=== PATIENT | male | born 1980 | race African-American/Black ===

== ENCOUNTER 2016-12-01 15:42 | Outpatient (CLI) | payer OTHER | END 2016-12-01 15:43 | disposition EMS.NT | LOC: EMS 15:42 | PROVIDERS: ATTEND Surgery | DX: R41.0 Disorientation, unspecified (principal) ==

== ENCOUNTER 2017-04-23 12:36 | Emergency (ER) | payer OTHER ==
--- NOTE | 2017-04-23 13:29 | ED Physician Documentation ---
PD HPI CHEST PAIN - Stated complaint Stated Complaint: CHEST PX - Chief complaint Chief Complaint: Resp - History obtained from History obtained from: Patient - History of Present Illness Timing - onset: How many days ago (few) Timing - onset during: Light activity Timing - duration: Days Timing - details: Gradual onset, Intermittant Quality: Sharp, Pain Location: Right chest Radiation: No: Jaw, Neck, Back, Abdominal, Left upper extremity, Right upper extremity, Other Improved by: Rest Worsened by: Inspiration, Movement, Palpation. No: Eating Associated symptoms: Cough. No: Shortness of air, Diaphoresis, Nausea, Feeling faint / dizzy Similar symptoms before: Has not had sx before Recently seen: Not recently seen Review of Systems Constitutional: denies: Fever, Chills Nose: reports: Sinus pressure / pain. denies: Rhinorrhea / runny nose, Congestion Throat: denies: Sore throat Cardiac: reports: Chest pain / pressure. denies: Palpitations, Pedal edema, Calf pain Respiratory: reports: Cough. denies: Dyspnea, Wheezing (but feels tight breathing with cough) GI: denies: Abdominal Pain, Nausea, Vomiting : denies: Dysuria, Frequency Skin: denies: Rash, Lesions Musculoskeletal: denies: Extremity swelling Neurologic: denies: Focal weakness, Numbness, Near syncope PD PAST MEDICAL HISTORY - Past Medical History Past Medical History: Yes Cardiovascular: Hypertension, High cholesterol Endocrine/Autoimmune: Type 2 diabetes GI: GERD Psych: Depression - Past Surgical History Past Surgical History: No General: Appendectomy - Present Medications Home Medications: Ambulatory Orders Medication Instructions Recorded Confirmed Albuterol Sulf [Ventolin Hfa 1 - 2 puffs INH Q4HR PRN #1 inhaler 04/23/17 Inhaler] Aspirin 81 mg PO DAILY 04/23/17 04/23/17 Atorvastatin [Lipitor] 10 mg ORAL DAILY 04/23/17 04/23/17 Cholecalciferol (Vitamin D3) 2,000 unit PO 04/23/17 [Vitamin D3] Citalopram [CeleXA] 10 mg PO ONCE 04/23/17 04/23/17 HYDROcod/ACETAM 5/325 [[place] 5/325] 1 tab PO Q6H PRN #15 tablet 04/23/17 Ibuprofen [Motrin] 600 mg PO TID #30 tab 04/23/17 Insulin Aspart [NovoLOG] unit SQ DAILY 04/23/17 Insulin Glargine [Lantus Solostar] 30 unit SQ BID 04/23/17 04/23/17 Propranolol [Inderal] 10 mg PO BID 04/23/17 04/23/17 - Allergies Allergies/Adverse Reactions: Allergies Allergy/AdvReac Type Severity Reaction Status Date / Time No Known Drug Allergies Allergy Verified 04/23/17 12:41 - Social History Does the pt smoke?: No Smoking Status: Never smoker Does the pt drink ETOH?: No Does the pt have substance abuse?: No - Family History Family history: reports: CAD. denies: Venous thromboembolism, Aortic dissection - Immunizations Immunizations are current?: Yes PD ED PE NORMAL - Vitals Vital signs reviewed: Yes - General General: Alert and oriented X 3, Well developed/nourished, Other (seems uncomfortable with deep breathing) - HEENT HEENT: Atraumatic, Moist mucous membranes, Pharynx benign - Neck Neck: Supple, no meningeal sign, No adenopathy - Cardiac Cardiac: RRR, No murmur, No rub, Other (bedside U/S without pericardial effusion. ) - Respiratory Respiratory: Clear bilaterally, Other (chestwall tendrness right anterior ribs/ cartilage about ribs 7-8. No rash nor sores. ) - Abdomen Abdomen: Soft, Non tender - Derm Derm: Normal color, Warm and dry, No rash - Extremities Extremities: No deformity, No tenderness to palpate, No edema, No calf tenderness / cord - Neuro Neuro: Alert and oriented X 3, No motor deficit, Normal speech Results - Vitals Vitals: Vital Signs - 24 hr 04/23/17 04/23/17 12:38 14:30 Temperature 37.3 C Heart Rate 104 H 104 H Respiratory 20 12 Rate Blood Pressure 150/91 H 154/105 H O2 Saturation 97 95 Oxygen O2 Source Room air - EKG (time done) 12:44 Rate: Rate (enter#) (101) Rhythm: Sinus tachycardia [place]: Normal Intervals: Normal [place] QRS: Normal Ischemia: Normal ST segments, ST elevation c/w repol. No: ST elevation c/w ischemia, ST depression, Hyperacute T waves Compare to prior EKG: Old EKG unavailable - Rads (name of study) chest Radiology: Prelim report reviewed, EMP read contemporaneously (normal study) PD MEDICAL DECISION MAKING - ED course Complexity details: considered differential (cough and chest pain, presume illness. CXR clear. ECG normal. Low prob/no risk factors for PE, no PTX, no pneumonia. [place] schest wall tenderness to palpation. ), d/w patient Departure - Departure Disposition: 01 Home, Self Care Clinical Impression: Cough, Acute chest wall pain Condition: Stable Record reviewed to determine appropriate education?: Yes Instructions: ED Chest Pain Costochondritis Follow-Up: Guillermo Yusuf MD [Primary Care Provider] - Prescriptions: Albuterol Sulf [Ventolin Hfa Inhaler] 1 - 2 puffs INH Q4HR PRN #1 inhaler PRN Reason: Shortness Of Air/Wheezing HYDROcod/ACETAM 5/325 [[place] 5/325] 1 tab PO Q6H PRN #15 tablet PRN Reason: Pain Ibuprofen [Motrin] 600 mg PO TID #30 tab Comments: This sounds likely to be a viral illness with a cough and some inflammation in the chest wall. Recheck if other symptoms develop. We will treated with an inhaler albuterol 2 puffs 4 times a day and other times as needed for cough and shortness of breath. This should improve airflow and reduce coughing. Use ibuprofen 2-3 times a day as an anti-inflammatory and for pain. Add Tylenol or hydrocodone if needed for worse pain. Recheck if not improving over the next few days. Discharge Date/Time: 04/23/17 14:48
[2017-04-23] MEDS ORDERED: HYDROcod/ACETAM 5/325 MG TABLET PO STA (13:43)
[2017-04-23] MEDS ORDERED: IBUPROFEN 600 MG TABLET PO STA (13:43)
--- NOTE | 2017-04-23 14:18 | XRAY Report ---
EXAM: CHEST RADIOGRAPHY EXAM DATE: 04/23/2017 02:06 PM. CLINICAL HISTORY: Chest pain right sided, worse with breathing. COMPARISON: 01/22/2009. TECHNIQUE: 2 views. FINDINGS: Lungs/Pleura: Lung volumes are mildly decreased. Minimal basilar opacities. No consolidation. No vasc ular congestion. No pneumothorax. No pleural effusions. Mediastinum: Heart and mediastinal contours are unremarkable. Other: No acute osseous abnormalities. IMPRESSION: 1. Mild hypoventilatory changes with minimal basilar opacities favoring atelectasis rather than conso lidation. [facility] Referring Provider Line: [phone] SITE ID: [id number]
[2017-04-23] MEDS ORDERED: DEXAMETHASONE 10 MG/ML VIAL PO STA (14:22)
[2017-04-23 14:30] VITALS: BP 154/105
== END 2017-04-23 14:48 | disposition home or self-care (01) ==
LOC: ED 12:36
DX: R07.89 Other chest pain (principal); R05 Cough; E78.00 Pure hypercholesterolemia, unspecified; E11.9 Type 2 diabetes mellitus without complications; Z79.4 Long term (current) use of insulin; K21.9 Gastro-esophageal reflux disease without esophagitis; Z79.82 Long term (current) use of aspirin
CPT/HCPCS: 71046; 93005; 99283; A9270

== ENCOUNTER 2017-05-31 05:59 | Outpatient (CLI) | payer OTHER | END 2017-05-31 06:00 | disposition EMS.NT | LOC: EMS 05:59 | PROVIDERS: ATTEND Surgery | DX: R46.4 Slowness and poor responsiveness (principal); R73.09 Other abnormal glucose ==

== ENCOUNTER 2017-07-23 20:49 | Outpatient (CLI) | payer OTHER | END 2017-07-23 20:50 | disposition EMS.NT | LOC: EMS 20:49 | PROVIDERS: ATTEND Surgery | DX: R73.09 Other abnormal glucose (principal) ==

== ENCOUNTER 2017-07-25 11:22 | Emergency (ER) | payer OTHER ==
[2017-07-25 11:59] LABS: BASOPHILS # (AUTO) 0.1 10^3/uL (0.0-0.1); BASOPHILS % (AUTO) 0.9 %; EOSINOPHILS # (AUTO) 0.2 10^3/uL (0.0-0.7); EOSINOPHILS % (AUTO) 2.6 %; HGB - HEMOGLOBIN 14.3 g/dL (14.0-18.0); LYMPHOCYTES # (AUTO) 1.2 10^3/uL (1.5-3.5); LYMPHOCYTES % (AUTO) 19.2 %; MEAN CORPUSCULAR HEMOGLOBIN 30.2 pg (27.0-31.0); MEAN CORPUSCULAR HGB CONC 33.9 g/dL (32.0-36.0); MEAN CORPUSCULAR VOLUME 89.2 fL (80.0-94.0); MEAN PLATELET VOLUME 7.6 fL (7.4-11.4); MONOCYTES # (AUTO) 0.5 10^3/uL (0.0-1.0); MONOCYTES % (AUTO) 8.5 %; NEUTROPHILS # (AUTO) 4.2 10^3/uL (1.5-6.6); NEUTROPHILS % (AUTO) 68.8 %; PLT - PLATELET COUNT 304 10^3/uL (130-450); RED BLOOD COUNT 4.72 10^6/uL (4.70-6.10); RED CELL DISTRIBUTION WIDTH 14.1 % (12.0-15.0); WHITE BLOOD COUNT 6.1 x10^3/uL (4.8-10.8)
[2017-07-25 12:09] LABS: ALBUMIN 3.4 g/dL (3.2-5.5); ALBUMIN/GLOBULIN RATIO 0.9 (1.0-2.2); BILIRUBIN,TOTAL 0.6 mg/dL (0.2-1.0); CREATININE 1.3 mg/dL (0.6-1.2); TOTAL PROTEIN 7.3 g/dL (6.7-8.2)
[2017-07-25] MEDS ORDERED: SODIUM CHLORIDE 0.9% 1,000 ML IV ONE (12:09)
[2017-07-25] MEDS ORDERED: diphenhydrAMINE INJ 50 MG/ML VIAL IVP STA (12:09)
[2017-07-25] MEDS ORDERED: KETOROLAC 60 MG/2 ML VIAL IVP STA (12:09)
[2017-07-25] MEDS ORDERED: PROCHLORPERAZINE 10 MG/2 ML VIAL IVP STA (12:09)
[2017-07-25] MEDS ORDERED: DEXAMETHASONE 10 MG/ML VIAL IVP STA (12:09)
--- NOTE | 2017-07-25 13:11 | ED Physician Documentation ---
PD HPI HEADACHE - Stated complaint Stated Complaint: MIGRAINE,NAUSEA,HIGH BP - Chief complaint Chief Complaint: Neuro - History obtained from History obtained from: Patient, Family - History of Present Illness Timing - onset: How many days ago (4) Timing - onset during: Rest Timing - duration: Days (4) Timing - details: Gradual onset, Still present Location: Front Quality: Throbbing Associated symptoms: Nausea. No: Fever, Stiff neck, Vomiting, Weakness, Numbness, Syncope, Seizure, Eye pain, Vision changes Improved by: Rest, Dark room, Quiet Worsened by: Light, Noise, Moving Contributing factors: No: Anticoagulated Similar symptoms before: Diagnosis (migraine) Recently seen: Not recently seen - Additional information Additional information: 37-year-old type I diabetic with a history of migraine headaches has developed a headache about 4 days ago and he has not been able to get control of the pain associated with this he has not been able to sleep. Review of Systems Constitutional: denies: Fever Eyes: reports: Photophobia. denies: Decreased vision Ears: denies: Ear pain Nose: denies: Rhinorrhea / runny nose, Congestion Throat: denies: Sore throat Cardiac: denies: Chest pain / pressure, Palpitations Respiratory: denies: Dyspnea, Cough GI: reports: Nausea, Vomiting. denies: Abdominal Pain, Constipation, Diarrhea : denies: Dysuria, Frequency Skin: denies: Rash Musculoskeletal: denies: Neck pain, Back pain, Extremity pain Neurologic: reports: Headache. denies: Generalized weakness, Focal weakness, Numbness, Difficulty speaking, Near syncope, Syncope, Confused, Head injury, LOC PD PAST MEDICAL HISTORY - Past Medical History Past Medical History: Yes Cardiovascular: High cholesterol, Hypertension Respiratory: None Neuro: Headache/migraine Endocrine/Autoimmune: Type 1 diabetes, Type 2 diabetes GI: GERD HEENT: None Psych: Depression Derm: None - Past Surgical History Past Surgical History: No General: Appendectomy - Present Medications Home Medications: Ambulatory Orders Medication Instructions Recorded Confirmed Insulin Aspart [Novolog] 10 units SUBQ TIDWM 05/08/14 05/08/14 Insulin Glargine,Hum.rec.anlog 30 units SUBQ DAILY 05/08/14 05/08/14 [Lantus] Lisinopril/Hydrochlorothiazide 1 tab ORAL DAILY 05/08/14 05/08/14 [Lisinopril-Hctz 10-12.5 mg Tab] Metoprolol Tartrate 50 mg ORAL DAILY 05/08/14 05/08/14 Albuterol Sulf [Ventolin Hfa 1 - 2 puffs INH Q4HR PRN #1 inhaler 04/23/17 Inhaler] Aspirin 81 mg PO DAILY 04/23/17 04/23/17 Atorvastatin [Lipitor] 10 mg ORAL DAILY 04/23/17 04/23/17 Cholecalciferol (Vitamin D3) 2,000 unit PO 04/23/17 [Vitamin D3] Citalopram [CeleXA] 10 mg PO ONCE 04/23/17 04/23/17 Ibuprofen [Motrin] 600 mg PO TID #30 tab 04/23/17 Insulin Aspart [NovoLOG] unit SQ DAILY 04/23/17 Insulin Glargine [Lantus Solostar] 30 unit SQ BID 04/23/17 04/23/17 Propranolol [Inderal] 10 mg PO BID 04/23/17 04/23/17 - Allergies Allergies/Adverse Reactions: Allergies Allergy/AdvReac Type Severity Reaction Status Date / Time No Known Drug Allergies Allergy Verified 05/08/14 14:28 - Social History Does the pt smoke?: No Smoking Status: Never smoker Does the pt drink ETOH?: No Does the pt have substance abuse?: No - Immunizations Immunizations are current?: Yes PD ED PE NORMAL - Vitals Vital signs reviewed: Yes (tachy and hypertensive) - General General: Alert and oriented X 3, Well developed/nourished, Other (appears to be in pain with [place] tone and flat affect ) - HEENT HEENT: Atraumatic, PERRL, EOMI, Ears normal, Other (dry mucous membranes) - Neck Neck: Supple, no meningeal sign, No bony TTP - Cardiac Cardiac: RRR, No murmur - Respiratory Respiratory: No respiratory distress, Clear bilaterally - Abdomen Abdomen: Soft, Non tender - Back Back: No CVA TTP, No spinal TTP - Derm Derm: Normal color, Warm and dry, No rash - Extremities Extremities: No deformity, No edema - Neuro Neuro: Alert and oriented X 3, double bottom driver 2-12 intact, No motor deficit, No sensory deficit, Normal speech Eye Opening: Spontaneous Motor: Obeys Commands Verbal: Oriented GCS Score: 15 - Psych Psych: Normal mood Results - Vitals Vitals: Vital Signs - 24 hr 07/25/17 11:27 Temperature 36.2 C L Heart Rate 104 H Respiratory 18 Rate Blood Pressure 180/120 H O2 Saturation 95 Oxygen O2 Source Room air - Labs Labs: Laboratory Tests 07/25/17 07/25/17 07/25/17 11:45 11:45 11:45 WBC 6.1 RBC 4.72 Hgb 14.3 Hct 42.1 MCV 89.2 MCH 30.2 MCHC 33.9 RDW 14.1 Plt Count 304 MPV 7.6 Neut # 4.2 Lymph # 1.2 L [place] # 0.5 Eos # 0.2 Baso # 0.1 Absolute Nucleated RBC 0.01 Nucleated RBC % 0.1 Sodium 134 L Potassium 4.2 Chloride 99 L Carbon Dioxide 28 Anion Gap 7.0 BUN 21 H Creatinine 1.3 H Estimated GFR (MDRD) 75 L Glucose 176 H Calcium 9.0 Total Bilirubin 0.6 AST 37 ALT 43 Alkaline Phosphatase 63 Troponin I < 0.04 Total Protein 7.3 Albumin 3.4 Globulin 3.9 Albumin/Globulin Ratio 0.9 L Lipase 15 L PD MEDICAL DECISION MAKING - ED course Complexity details: reviewed results, re-evaluated patient, considered differential, d/w patient, d/w family ED course: 37-year-old diabetic male with migraine headache is administered a concoction of a liter of saline 10 mg of Compazine, 25 mg of Benadryl, 30 mg of Toradol and 10 mg dexamethasone. He has resolution of his headache. Departure - Departure Disposition: 01 Home, Self Care Clinical Impression: Migraine headache Qualifiers: Migraine type: without aura Status migrainosus presence: without status migrainosus Intractability: not intractable Qualified Code(s): G43.009 - Migraine without aura, not intractable, without status migrainosus Condition: Stable Instructions: ED Headache Migraine Follow-Up: Guillermo Yusuf MD [Primary Care Provider] -
[2017-07-25 13:44] VITALS: BP 183/107
== END 2017-07-25 13:44 | disposition home or self-care (01) ==
LOC: ED 11:22
DX: G43.009 Migraine without aura, not intractable, without status migrainosus (principal); E11.9 Type 2 diabetes mellitus without complications; Z79.4 Long term (current) use of insulin; I10 Essential (primary) hypertension; E78.00 Pure hypercholesterolemia, unspecified; K21.9 Gastro-esophageal reflux disease without esophagitis
CPT/HCPCS: 36415; 80053; 83690; 84484; 85025; 96374; 96375; 99283; 99284; J1200

== ENCOUNTER 2017-10-26 12:07 | Emergency (ER) | payer OTHER ==
--- NOTE | 2017-10-26 12:29 | ED Physician Documentation ---
PD HPI NVD - Stated complaint Stated Complaint: HIGH BS/VISION CHANGES - Chief complaint Chief Complaint: General - History obtained from History obtained from: Patient - History of Present Illness Timing - onset: Today (he says BS a bit higher than usual yesterday and then quite high today, with some feeling of lightheaded. No nausea nor vomiting.) Timing - duration: Hours Timing - details: Abrupt onset Associated symptoms: Other (no change in intake nor insulin dosing. He did take extra insulin [employer] when reading was high, so that will be having effect in the next hour or so.). No: Fever, Abdominal pain, Chest pain, Loss of appetite, Weight loss Contributing factors: No: Sick contact, Bad food, Travel, Recent antibiotics Similar symptoms before: Has not had sx before (has had low blood sugar issues more in the past. Not typically high (he says baseline is 100s into low 200s, aiming slightly high due to episodes of hypoglycemia in the past).) Recently seen: Surgery (retinal laser surgery 2 days ago in office due to retinal bleed.) Review of Systems Constitutional: denies: Fever Eyes: reports: Photophobia Nose: denies: Rhinorrhea / runny nose, Congestion Throat: denies: Sore throat Cardiac: denies: Chest pain / pressure, Palpitations Respiratory: denies: Dyspnea, Cough GI: reports: Nausea (mild). denies: Abdominal Pain, Vomiting, Diarrhea : denies: Dysuria, Frequency Skin: denies: Lesions, Abrasion (s), Laceration (s) Neurologic: reports: Generalized weakness (mild lightheaded). denies: Focal weakness, Numbness, Confused, Altered mental status PD PAST MEDICAL HISTORY - Past Medical History Cardiovascular: High cholesterol, Hypertension Respiratory: None Endocrine/Autoimmune: Type 1 diabetes, Type 2 diabetes GI: GERD HEENT: None Psych: Depression Derm: None - Past Surgical History Past Surgical History: No General: Appendectomy - Present Medications Home Medications: Ambulatory Orders Medication Instructions Recorded Confirmed Insulin Aspart [Novolog] 10 units SUBQ TIDWM 05/08/14 05/08/14 Insulin Glargine,Hum.rec.anlog 30 units SUBQ DAILY 05/08/14 05/08/14 [Lantus] Lisinopril/Hydrochlorothiazide 1 tab ORAL DAILY 02/04/15 02/04/15 [Lisinopril-Hctz 10-12.5 mg Tab] Metoprolol Tartrate 50 mg ORAL DAILY 05/08/14 05/08/14 Albuterol Sulf [Ventolin Hfa 1 - 2 puffs INH Q4HR PRN #1 inhaler 04/23/17 Inhaler] Aspirin 81 mg PO DAILY 04/23/17 04/23/17 Atorvastatin [Lipitor] 10 mg ORAL DAILY 04/23/17 04/23/17 Cholecalciferol (Vitamin D3) 2,000 unit PO 04/23/17 [Vitamin D3] Citalopram [CeleXA] 10 mg PO ONCE 04/23/17 04/23/17 Ibuprofen [Motrin] 600 mg PO TID #30 tab 04/23/17 Insulin Aspart [NovoLOG] unit SQ DAILY 04/23/17 Insulin Glargine [Lantus Solostar] 30 unit SQ BID 04/23/17 04/23/17 Propranolol [Inderal] 10 mg PO BID 04/23/17 04/23/17 - Allergies Allergies/Adverse Reactions: Allergies Allergy/AdvReac Type Severity Reaction Status Date / Time No Known Drug Allergies Allergy Verified 10/26/17 12:14 - Social History Does the pt smoke?: No Smoking Status: Never smoker Does the pt drink ETOH?: No Does the pt have substance abuse?: No - Immunizations Immunizations are current?: Yes PD ED PE NORMAL - Vitals Vital signs reviewed: Yes - General General: Alert and oriented X 3, No acute distress, Well developed/nourished - HEENT HEENT: PERRL, EOMI (right eye is light sensitive. ), Ears normal, Pharynx benign - Neck Neck: Supple, no meningeal sign, No adenopathy - Cardiac Cardiac: RRR, No murmur - Respiratory Respiratory: Clear bilaterally - Abdomen Abdomen: Soft, Non tender - Back Back: No CVA TTP - Derm Derm: Normal color, Warm and dry - Extremities Extremities: No deformity, No tenderness to palpate, Normal ROM s pain - Neuro Neuro: Alert and oriented X 3, No motor deficit, Normal speech Eye Opening: Spontaneous Motor: Obeys Commands Verbal: Oriented GCS Score: 15 Results - Vitals Vitals: Vital Signs - 24 hr 10/26/17 14:37 Heart Rate 106 H Respiratory 16 Rate Blood Pressure 191/111 H O2 Saturation 98 Oxygen O2 Source Room air - Labs Labs: Laboratory Tests 10/26/17 10/26/17 10/26/17 12:55 12:55 12:55 WBC 4.7 L RBC 4.76 Hgb 14.5 Hct 43.8 MCV 92.0 MCH 30.4 MCHC 33.0 RDW 13.0 Plt Count 275 MPV 7.9 Neut # (Auto) 3.3 Lymph # (Auto) 0.9 L [place] # (Auto) 0.3 Eos # (Auto) 0.1 Baso # (Auto) 0.0 Absolute Nucleated RBC 0.00 Nucleated RBC % 0.0 VBG pH 7.351 VBG pCO2 51.0 VBG pO2 39.4 VBG HCO3 27.6 VBG Total CO2 29.2 H VBG O2 Saturation 74.3 VBG Base Excess 1.0 Sodium 129 L Potassium 5.6 H Chloride 92 L Carbon Dioxide 28 Anion Gap 9.0 BUN 44 H Creatinine 2.2 H Estimated GFR (MDRD) 41 L Glucose 614 H* POC Whole Bld Glucose Calcium 9.0 Magnesium 2.0 Total Bilirubin 0.6 AST 37 ALT 41 Alkaline Phosphatase 79 Total Protein 7.3 Albumin 3.4 Globulin 3.9 Albumin/Globulin Ratio 0.9 L Lipase 21 L Urine Color Urine Clarity Urine pH Ur Specific [place] Urine Protein Urine Glucose (UA) Urine Ketones Urine Occult Blood Urine Nitrite Urine Bilirubin Urine Urobilinogen Ur Leukocyte Esterase Ur Microscopic Review Urine Culture Comments Serum Ketones NEGATIVE 10/26/17 10/26/17 13:00 15:00 WBC RBC Hgb Hct MCV MCH MCHC RDW Plt Count MPV Neut # (Auto) Lymph # (Auto) [place] # (Auto) Eos # (Auto) Baso # (Auto) Absolute Nucleated RBC Nucleated RBC % VBG pH VBG pCO2 VBG pO2 VBG HCO3 VBG Total CO2 VBG O2 Saturation VBG Base Excess Sodium Potassium Chloride Carbon Dioxide Anion Gap BUN Creatinine Estimated GFR (MDRD) Glucose POC Whole Bld Glucose 310 H Calcium Magnesium Total Bilirubin AST ALT Alkaline Phosphatase Total Protein Albumin Globulin Albumin/Globulin Ratio Lipase Urine Color YELLOW Urine Clarity CLEAR Urine pH 6.0 Ur Specific [place] <=1.005 Urine Protein TRACE Urine Glucose (UA) >=1000 H Urine Ketones NEGATIVE Urine Occult Blood TRACE-INTA Urine Nitrite NEGATIVE Urine Bilirubin NEGATIVE Urine Urobilinogen 0.2 (NORMAL) Ur Leukocyte Esterase NEGATIVE Ur Microscopic Review NOT INDICATED Urine Culture Comments NOT INDICATED Serum Ketones PD MEDICAL DECISION MAKING - ED course Complexity details: considered differential (not clear reason for BS to be so high. had eye laser surgery 2 days ago, but I would not think that would alter metabolism. Perhaps though. Improved with IV fluids and dose insulin. No ketosis and he is feeling okay otherwise. ), d/w patient - Sepsis Event Vital Signs: Vital Signs - 24 hr 10/26/17 14:37 Heart Rate 106 H Respiratory 16 Rate Blood Pressure 191/111 H O2 Saturation 98 Oxygen O2 Source Room air Departure - Departure Disposition: Home, Self Care Clinical Impression: Hyperglycemia, Blood glucose abnormal Condition: Stable Record reviewed to determine appropriate education?: Yes Instructions: ED Hyperglycemia Diabetic Follow-Up: Guillermo Yusuf MD [Primary Care Provider] - Comments: There is not a obvious reason for your blood sugar to be high at this point. You have had the eye surgery on Tuesday and perhaps that is affecting your metabolism though one would expect that. At this point drink lots of fluids and continue usual medications. Your blood sugars down to 300 at this point and presumably will be improving. There is no signs of ketones or acidosis on your blood tests. Discharge Date/Time: 10/26/17 15:26
[2017-10-26] MEDS ORDERED: SODIUM CHLORIDE 0.9% 1,000 ML IV ONE ×2 (12:39→13:30)
[2017-10-26 13:00] LABS: BASOPHILS % (AUTO) 0.6 %; EOSINOPHILS # (AUTO) 0.1 10^3/uL (0.0-0.7); EOSINOPHILS % (AUTO) 2.7 %; HGB - HEMOGLOBIN 14.5 g/dL (14.0-18.0); LYMPHOCYTES # (AUTO) 0.9 10^3/uL (1.5-3.5); LYMPHOCYTES % (AUTO) 18.2 %; MEAN CORPUSCULAR HEMOGLOBIN 30.4 pg (27.0-31.0); MEAN PLATELET VOLUME 7.9 fL (7.4-11.4); MONOCYTES # (AUTO) 0.3 10^3/uL (0.0-1.0); MONOCYTES % (AUTO) 7.4 %; NEUTROPHILS # (AUTO) 3.3 10^3/uL (1.5-6.6); NEUTROPHILS % (AUTO) 71.1 %; PLT - PLATELET COUNT 275 10^3/uL (130-450); RED BLOOD COUNT 4.76 10^6/uL (4.70-6.10); WHITE BLOOD COUNT 4.7 x10^3/uL (4.8-10.8)
[2017-10-26 13:08] LABS: KETONES, SERUM (ACETEST) NEGATIVE (NEGATIVE)
[2017-10-26 13:09] LABS: VBG PH 7.351 (7.31-7.41)
[2017-10-26 13:10] LABS: VBG PO2 39.4 mmHg (25-47); VBG TOTAL CO2 29.2 mmol/L (24-29)
[2017-10-26 13:19] LABS: BILIRUBIN,URINE NEGATIVE (NEGATIVE); GLUCOSE, URINE (UA) >=1000 mg/dL (NEGATIVE); KETONES,URINE (UA) NEGATIVE (NEGATIVE); LEUKOCYTE ESTERASE, URINE NEGATIVE (NEGATIVE); NITRITE,URINE NEGATIVE (NEGATIVE); OCCULT BLOOD,URINE TRACE-INTA (NEGATIVE); PROTEIN,URINE TRACE mg/dL (NEGATIVE); UROBILINOGEN,URINE 0.2 (NORMAL) E.U./dL (NORMAL)
[2017-10-26 13:20] LABS: CLARITY,URINE CLEAR (CLEAR)
[2017-10-26 13:23] LABS: ALBUMIN 3.4 g/dL (3.2-5.5); ALBUMIN/GLOBULIN RATIO 0.9 (1.0-2.2); ALKALINE PHOSPHATASE 79 IU/L (42-121); ALT ALANINE AMINOTRANSFERASE 41 IU/L (10-60); AST ASPARTATE AMINOTRANSFERASE 37 IU/L (10-42); BILIRUBIN,TOTAL 0.6 mg/dL (0.2-1.0); BUN - BLOOD UREA NITROGEN 44 mg/dL (6-20); CARBON DIOXIDE - CO2 28 mmol/L (21-32); CHLORIDE 92 mmol/L (101-111); CREATININE 2.2 mg/dL (0.6-1.2); GFR - MDRD 41 (>89); LIPASE 21 U/L (22-51); SODIUM 129 mmol/L (135-145); TOTAL PROTEIN 7.3 g/dL (6.7-8.2)
[2017-10-26 13:28] LABS: GLUCOSE 614 mg/dL (70-100)
[2017-10-26 14:39] VITALS: BP 191/111
== END 2017-10-26 15:26 | disposition home or self-care (01) ==
LOC: ED 12:07
DX: E10.65 Type 1 diabetes mellitus with hyperglycemia (principal); Z98.890 Other specified postprocedural states; I10 Essential (primary) hypertension
CPT/HCPCS: 36415; 80053; 81001; 81003; 82009; 82803; 83690; 83735; 85025; 87086; 96360; 96361; 99283

== ENCOUNTER 2017-12-17 18:40 | Emergency (ER) | payer OTHER ==
[2017-12-17 20:06] LABS: BASOPHILS % (AUTO) 0.6 %; EOSINOPHILS # (AUTO) 0.1 10^3/uL (0.0-0.7); EOSINOPHILS % (AUTO) 1.5 %; HGB - HEMOGLOBIN 13.9 g/dL (14.0-18.0); LYMPHOCYTES % (AUTO) 14.3 %; MEAN CORPUSCULAR HEMOGLOBIN 30.4 pg (27.0-31.0); MEAN CORPUSCULAR VOLUME 89.2 fL (80.0-94.0); MEAN PLATELET VOLUME 7.7 fL (7.4-11.4); MONOCYTES # (AUTO) 0.4 10^3/uL (0.0-1.0); MONOCYTES % (AUTO) 5.3 %; NEUTROPHILS # (AUTO) 5.5 10^3/uL (1.5-6.6); NEUTROPHILS % (AUTO) 78.3 %; PLT - PLATELET COUNT 298 10^3/uL (130-450); RED BLOOD COUNT 4.57 10^6/uL (4.70-6.10); RED CELL DISTRIBUTION WIDTH 12.8 % (12.0-15.0); WHITE BLOOD COUNT 7.1 x10^3/uL (4.8-10.8)
[2017-12-17] MEDS ORDERED: diphenhydrAMINE INJ 50 MG/ML VIAL IVP STA (20:18)
[2017-12-17] MEDS ORDERED: METOCLOPRAMIDE 10 MG/2 ML VIAL IVP STA (20:18)
[2017-12-17] MEDS ORDERED: SODIUM CHLORIDE 0.9% 1,000 ML IV ONE ×2 (20:18→21:47)
[2017-12-17 20:19] LABS: ALBUMIN 3.3 g/dL (3.2-5.5); ALBUMIN/GLOBULIN RATIO 0.8 (1.0-2.2); BILIRUBIN,TOTAL 0.7 mg/dL (0.2-1.0); CALCIUM 8.7 mg/dL (8.5-10.3); CREATININE 1.4 mg/dL (0.6-1.2); TOTAL PROTEIN 7.3 g/dL (6.7-8.2)
[2017-12-17] MEDS ORDERED: MORPHINE 2 MG/ML CARPUJECT IVP STA (20:19)
[2017-12-17 20:50] LABS: VBG PCO2 41.1 mmHg (41-51); VBG PH 7.426 (7.31-7.41)
--- NOTE | 2017-12-17 20:58 | XRAY Report ---
Reason: fever, hx of lung failure Procedure Date: 12/17/2017 Accession Number: [id number] / [id number] Procedure: XR - Chest 1 View X-Ray CPT Code: 33964 FULL RESULT: EXAM: CHEST RADIOGRAPHY EXAM DATE: 12/17/2017 08:31 PM. CLINICAL HISTORY: Fever, hx of lung failure. COMPARISON: CHEST 2 VIEW 04/23/2017 1:58 PM. TECHNIQUE: 1 view. FINDINGS: Lungs/Pleura: No focal opacities evident. No pleural effusion. No pneumothorax. Mediastinum: Within exam limitations, the cardiomediastinal contour is normal. Other: None. IMPRESSION: Normal single view chest. [facility]
[2017-12-17 21:25] LABS: BILIRUBIN,URINE NEGATIVE (NEGATIVE); GLUCOSE, URINE (UA) 500 mg/dL (NEGATIVE); KETONES,URINE (UA) NEGATIVE (NEGATIVE); LEUKOCYTE ESTERASE, URINE NEGATIVE (NEGATIVE); NITRITE,URINE NEGATIVE (NEGATIVE); OCCULT BLOOD,URINE TRACE-INTA (NEGATIVE); PROTEIN,URINE >=300 mg/dL (NEGATIVE); UROBILINOGEN,URINE 0.2 (NORMAL) E.U./dL (NORMAL)
[2017-12-17 21:52] LABS: CLARITY,URINE HAZY (CLEAR)
[2017-12-17 22:00] LABS: BACTERIA,URINE None Seen /HPF (None Seen); SQUAMOUS EPITHELIAL CELL,UR RARE Squamous (<= Few)
--- NOTE | 2017-12-17 22:03 | ED Physician Documentation ---
PD HPI ABD PAIN - Stated complaint Stated Complaint: PELAYO/VOMITING - Chief complaint Chief Complaint: Cardiac - History obtained from History obtained from: Patient, Family - History of Present Illness Timing - onset: Today Timing - details: Gradual onset, Still present Quality: Cramping, Aching, Sharp Location: Epigastric Radiation: Chest Associated symptoms: Nausea, Vomiting, Chest pain. No: Fever, Diarrhea Similar symptoms before: Work up / diagnostics Recently seen: Not recently seen - Additional information Additional information: Patient is a 37 year old male with a history of type one diabetes who is presenting to the emergency department forn abdominal pain, nausea, vomiting chest pain and headache. patient states that her symptoms have been going on for last couple of days. Patient states that his blood glucose has been well controlled. He also reports a history of migraines. Review of Systems Constitutional: denies: Fever, Chills Eyes: reports: Reviewed and negative Cardiac: reports: Chest pain / pressure Respiratory: denies: Dyspnea, Cough GI: reports: Abdominal Pain, Nausea, Vomiting Musculoskeletal: denies: Neck pain, Back pain Neurologic: reports: Headache. denies: Generalized weakness, Focal weakness, Numbness PD PAST MEDICAL HISTORY - Past Medical History Past Medical History: Yes Cardiovascular: High cholesterol, Hypertension Respiratory: None Endocrine/Autoimmune: Type 1 diabetes, Type 2 diabetes GI: GERD HEENT: None Psych: Depression Derm: None - Past Surgical History Past Surgical History: No General: Appendectomy - Present Medications Home Medications: Ambulatory Orders Medication Instructions Recorded Confirmed Insulin Aspart [Novolog] 10 units SUBQ TIDWM 05/08/14 05/08/14 Insulin Glargine,Hum.rec.anlog 30 units SUBQ DAILY 05/08/14 05/08/14 [Lantus] Lisinopril/Hydrochlorothiazide 1 tab ORAL DAILY 05/08/14 05/08/14 [Lisinopril-Hctz 10-12.5 mg Tab] Metoprolol Tartrate 50 mg ORAL DAILY 05/08/14 05/08/14 Albuterol Sulf [Ventolin Hfa 1 - 2 puffs INH Q4HR PRN #1 inhaler 04/23/17 Inhaler] Aspirin 81 mg PO DAILY 04/23/17 04/23/17 Atorvastatin [Lipitor] 10 mg ORAL DAILY 04/23/17 04/23/17 Cholecalciferol (Vitamin D3) 2,000 unit PO 04/23/17 [Vitamin D3] Citalopram [CeleXA] 10 mg PO ONCE 04/23/17 04/23/17 Ibuprofen [Motrin] 600 mg PO TID #30 tab 04/23/17 Insulin Aspart [NovoLOG] unit SQ DAILY 04/23/17 Insulin Glargine [Lantus Solostar] 30 unit SQ BID 04/23/17 04/23/17 Propranolol [Inderal] 10 mg PO BID 04/23/17 04/23/17 Ondansetron Odt [Zofran] 4 mg TL Q6H PRN #14 tablet 12/17/17 - Allergies Allergies/Adverse Reactions: Allergies Allergy/AdvReac Type Severity Reaction Status Date / Time No Known Drug Allergies Allergy Verified 12/17/17 20:02 - Social History Does the pt smoke?: No Smoking Status: Never smoker Does the pt drink ETOH?: No Does the pt have substance abuse?: No - Immunizations Immunizations are current?: Yes - POLST Patient has POLST: No PD ED PE NORMAL - Vitals Vital signs reviewed: Yes - General General: Alert and oriented X 3 - HEENT HEENT: Atraumatic - Respiratory Respiratory: No respiratory distress - Derm Derm: Normal color, Warm and dry - Extremities Extremities: No deformity PD ED PE EXPANDED - General General: Alert, In Pain - Cardiac Cardiac: Tachy - Abdomen Abdomen: Tender to palpation. No: Rebound, Guarding Results - Vitals Vitals: Vital Signs - 24 hr 12/17/17 12/17/17 12/17/17 19:01 20:17 20:43 Temperature 36 C L Heart Rate 115 H 118 H 116 H Respiratory 18 18 13 Rate Blood Pressure 182/106 H 198/117 H 179/105 H O2 Saturation 95 97 97 12/17/17 21:54 Temperature Heart Rate 106 H Respiratory 13 Rate Blood Pressure 147/89 H O2 Saturation 96 Oxygen O2 Source Room air - EKG (time done) 1912 Rate: Rate (enter#) (110) Rhythm: Sinus tachycardia QRS: LVH Ischemia: Normal ST segments - Labs Labs: Laboratory Tests 12/17/17 12/17/17 12/17/17 20:01 20:01 20:36 WBC 7.1 RBC 4.57 L Hgb 13.9 L Hct 40.8 L MCV 89.2 MCH 30.4 MCHC 34.0 RDW 12.8 Plt Count 298 MPV 7.7 Neut # (Auto) 5.5 Lymph # (Auto) 1.0 L [place] # (Auto) 0.4 Eos # (Auto) 0.1 Baso # (Auto) 0.0 Absolute Nucleated RBC 0.01 Nucleated RBC % 0.1 VBG pH VBG pCO2 VBG pO2 VBG HCO3 VBG Total CO2 VBG O2 Saturation VBG Base Excess Sodium 133 L Potassium 4.2 Chloride 97 L Carbon Dioxide 28 Anion Gap 8.0 BUN 24 H Creatinine 1.4 H Estimated GFR (MDRD) 69 L Glucose 249 H Lactic Acid Calcium 8.7 Total Bilirubin 0.7 AST 38 ALT 52 Alkaline Phosphatase 74 Troponin I < 0.04 Total Protein 7.3 Albumin 3.3 Globulin 4.0 Albumin/Globulin Ratio 0.8 L Lipase 21 L Urine Color Urine Clarity Urine pH Ur Specific [place] Urine Protein Urine Glucose (UA) Urine Ketones Urine Occult Blood Urine Nitrite Urine Bilirubin Urine Urobilinogen Ur Leukocyte Esterase Urine RBC Urine WBC Ur Squamous Epith Cells Urine Bacteria Ur Microscopic Review Urine Culture Comments Serum Ketones 12/17/17 12/17/17 12/17/17 20:36 20:36 20:36 WBC RBC Hgb Hct MCV MCH MCHC RDW Plt Count MPV Neut # (Auto) Lymph # (Auto) [place] # (Auto) Eos # (Auto) Baso # (Auto) Absolute Nucleated RBC Nucleated RBC % VBG pH 7.426 H VBG pCO2 41.1 VBG pO2 135.0 H VBG HCO3 27.1 VBG Total CO2 28.0 VBG O2 Saturation 99.0 H VBG Base Excess 3.0 H Sodium Potassium Chloride Carbon Dioxide Anion Gap BUN Creatinine Estimated GFR (MDRD) Glucose Lactic Acid 1.1 Calcium Total Bilirubin AST ALT Alkaline Phosphatase Troponin I Total Protein Albumin Globulin Albumin/Globulin Ratio Lipase Urine Color Urine Clarity Urine pH Ur Specific [place] Urine Protein Urine Glucose (UA) Urine Ketones Urine Occult Blood Urine Nitrite Urine Bilirubin Urine Urobilinogen Ur Leukocyte Esterase Urine RBC Urine WBC Ur Squamous Epith Cells Urine Bacteria Ur Microscopic Review Urine Culture Comments Serum Ketones NEGATIVE 12/17/17 21:07 WBC RBC Hgb Hct MCV MCH MCHC RDW Plt Count MPV Neut # (Auto) Lymph # (Auto) [place] # (Auto) Eos # (Auto) Baso # (Auto) Absolute Nucleated RBC Nucleated RBC % VBG pH VBG pCO2 VBG pO2 VBG HCO3 VBG Total CO2 VBG O2 Saturation VBG Base Excess Sodium Potassium Chloride Carbon Dioxide Anion Gap BUN Creatinine Estimated GFR (MDRD) Glucose Lactic Acid Calcium Total Bilirubin AST ALT Alkaline Phosphatase Troponin I Total Protein Albumin Globulin Albumin/Globulin Ratio Lipase Urine Color YELLOW Urine Clarity HAZY Urine pH 7.0 Ur Specific [place] 1.025 Urine Protein >=300 Urine Glucose (UA) 500 H Urine Ketones NEGATIVE Urine Occult Blood TRACE-INTA Urine Nitrite NEGATIVE Urine Bilirubin NEGATIVE Urine Urobilinogen 0.2 (NORMAL) Ur Leukocyte Esterase NEGATIVE Urine RBC 6-10 H Urine WBC 4-5 Ur Squamous Epith Cells RARE Squamous Urine Bacteria None Seen Ur Microscopic Review INDICATED Urine Culture Comments NOT INDICATED Serum Ketones - Rads (name of study) chest x-ray Radiology: Final report received (normal) PD MEDICAL DECISION MAKING - ED course Complexity details: reviewed old records, reviewed results, re-evaluated patient, considered differential, d/w patient, d/w family ED course: Patient was seen and examined at bedside. ekg had been performed and was sinus tach. labs were drawn. chest x-ray was performed and within normal limits. Patient was started on a fluid bolus and treated with morphine, reglan and benadryl. Patient's labs showed no sign of dka. Upon re-evaluation patient's pain had resolved as well as his nausea. Patient's heart rate was improving. Patient was treated with a second liter bolus and was stable for discharge with outpatient follow up. - Sepsis Event Vital Signs: Vital Signs - 24 hr 12/17/17 12/17/17 12/17/17 19:01 20:17 20:43 Temperature 36 C L Heart Rate 115 H 118 H 116 H Respiratory 18 18 13 Rate Blood Pressure 182/106 H 198/117 H 179/105 H O2 Saturation 95 97 97 12/17/17 21:54 Temperature Heart Rate 106 H Respiratory 13 Rate Blood Pressure 147/89 H O2 Saturation 96 Oxygen O2 Source Room air Departure - Departure Disposition: 01 Home, Self Care Clinical Impression: Migraine headache, Nausea & vomiting Condition: Good Instructions: ED Nausea Vomiting, ED Headache Migraine Follow-Up: Guillermo Yusuf MD [Primary Care Provider] - Prescriptions: Ondansetron Odt [Zofran] 4 mg TL Q6H PRN #14 tablet PRN Reason: Nausea / Vomiting Comments: Your diagnostics today were within normal limits. It is important that you stay well hydrated. You should follow up with your doctor if your symptoms become more frequent. You may return to the emergency department at anytime for new, worsening or uncontrollable symptoms.
[2017-12-17 22:42] VITALS: BP 150/84
== END 2017-12-17 22:50 | disposition home or self-care (01) ==
LOC: ED 18:40
DX: G43.909 Migraine, unspecified, not intractable, without status migrainosus (principal); R11.2 Nausea with vomiting, unspecified; I10 Essential (primary) hypertension; E11.9 Type 2 diabetes mellitus without complications; E10.9 Type 1 diabetes mellitus without complications; R00.0 Tachycardia, unspecified; Z79.4 Long term (current) use of insulin
CPT/HCPCS: 36415; 71045; 80053; 81001; 82009; 82803; 83605; 83690; 84484; 85025; 93005; 96361; 96374; 96375; 99284; J1200; J2765; 81003; 87086

== ENCOUNTER 2018-01-26 21:41 | Emergency (ER) | payer OTHER ==
--- NOTE | 2018-01-26 22:36 | ED Physician Documentation ---
PD HPI CHEST PAIN - Stated complaint Stated Complaint: CHEST PX/NAUSEA - Chief complaint Chief Complaint: Cardiac - History obtained from History obtained from: Patient - History of Present Illness Timing - onset: Today Timing - duration: Hours Timing - details: Gradual onset, Waxing and waning Pain level now: 4 Quality: Pressure Location: Substernal, Left chest (no radiation) Radiation: Other Improved by: Rest Worsened by: Exertion, Eating, Palpation Associated symptoms: Nausea, Vomiting. No: Shortness of air, Diaphoresis, Feeling faint / dizzy, General Weakness, Palpitations, Cough Similar symptoms before: Has not had sx before Recently seen: Not recently seen - Additional information Additional information: he says his blood sugars have been running in 400s few days Review of Systems Constitutional: reports: Reviewed and negative Nose: reports: Reviewed and negative Throat: reports: Reviewed and negative Cardiac: reports: Chest pain / pressure. denies: Pedal edema Respiratory: reports: Dyspnea, Cough GI: reports: Abdominal Pain, Nausea, Vomiting : reports: Frequency. denies: Dysuria PD PAST MEDICAL HISTORY - Past Medical History Cardiovascular: High cholesterol, Hypertension Respiratory: None Endocrine/Autoimmune: Type 1 diabetes, Type 2 diabetes GI: GERD HEENT: None Psych: Depression Derm: None - Past Surgical History Past Surgical History: No General: Appendectomy - Present Medications Home Medications: Ambulatory Orders Medication Instructions Recorded Confirmed Insulin Aspart [Novolog] 10 units SUBQ TIDWM 05/08/14 01/27/18 Insulin Glargine,Hum.rec.anlog 30 units SUBQ DAILY 05/08/14 01/27/18 [Lantus] Lisinopril/Hydrochlorothiazide 1 tab ORAL DAILY 05/08/14 01/27/18 [Lisinopril-Hctz 10-12.5 mg Tab] Metoprolol Tartrate 50 mg ORAL DAILY 05/08/14 01/27/18 Albuterol Sulf [Ventolin Hfa 1 - 2 puffs INH Q4HR PRN #1 inhaler 04/23/17 01/27/18 Inhaler] Aspirin 81 mg PO DAILY 04/23/17 01/27/18 Atorvastatin [Lipitor] 10 mg ORAL DAILY 04/23/17 01/27/18 Cholecalciferol (Vitamin D3) 2,000 unit PO DAILY 04/23/17 01/27/18 [Vitamin D3] Citalopram [CeleXA] 10 mg PO ONCE 04/23/17 01/27/18 Ibuprofen [Motrin] 600 mg PO TID #30 tab 04/23/17 Insulin Aspart [NovoLOG] unit SQ DAILY 04/23/17 Insulin Glargine [Lantus Solostar] 30 unit SQ BID 04/23/17 01/27/18 Ondansetron Odt [Zofran] 4 mg TL Q6H PRN #14 tablet 01/27/18 Promethazine [Phenergan] 25 - 50 mg PO Q6H PRN #10 tab 01/27/18 - Allergies Allergies/Adverse Reactions: Allergies Allergy/AdvReac Type Severity Reaction Status Date / Time No Known Drug Allergies Allergy Verified 01/27/18 10:23 - Social History Does the pt smoke?: No Smoking Status: Never smoker Does the pt drink ETOH?: No Does the pt have substance abuse?: No - Immunizations Immunizations are current?: Yes - POLST Patient has POLST: No PD ED PE NORMAL - Vitals Vital signs reviewed: Yes - General General: Alert and oriented X 3, No acute distress, Well developed/nourished - HEENT HEENT: Moist mucous membranes - Neck Neck: Supple, no meningeal sign - Cardiac Cardiac: RRR, No murmur, No gallop, No rub - Respiratory Respiratory: No respiratory distress, Clear bilaterally - Abdomen Abdomen: Normal bowel sounds, Soft, Non tender, Non distended - Back Back: No CVA TTP - Derm Derm: Normal color, Warm and dry - Extremities Extremities: No edema - Neuro Neuro: Alert and oriented X 3 Results - Vitals Vitals: Oxygen O2 Source Room air - Labs Labs: Laboratory Tests 01/26/18 01/26/18 01/26/18 21:54 22:40 22:40 WBC 7.1 RBC 4.47 L Hgb 13.6 L Hct 39.8 L MCV 89.1 MCH 30.5 MCHC 34.2 RDW 12.5 Plt Count 358 MPV 7.5 Neut # (Auto) 5.4 Lymph # (Auto) 1.1 L [place] # (Auto) 0.4 Eos # (Auto) 0.1 Baso # (Auto) 0.1 Absolute Nucleated RBC 0.02 Nucleated RBC % 0.3 D-Dimer Sodium 131 L Potassium 3.9 Chloride 92 L Carbon Dioxide 26 Anion Gap 13.0 BUN 34 H Creatinine 1.9 H Estimated GFR (MDRD) 49 L Glucose 371 H POC Whole Bld Glucose 416 H Calcium 9.0 Total Bilirubin 0.8 AST 28 ALT 34 Alkaline Phosphatase 80 Troponin I Total Protein 7.5 Albumin 3.2 Globulin 4.3 H Albumin/Globulin Ratio 0.7 L Lipase 15 L Serum Ketones 01/26/18 01/26/18 01/26/18 22:40 22:40 23:16 WBC RBC Hgb Hct MCV MCH MCHC RDW Plt Count MPV Neut # (Auto) Lymph # (Auto) [place] # (Auto) Eos # (Auto) Baso # (Auto) Absolute Nucleated RBC Nucleated RBC % D-Dimer 366.9 H Sodium Potassium Chloride Carbon Dioxide Anion Gap BUN Creatinine Estimated GFR (MDRD) Glucose POC Whole Bld Glucose Calcium Total Bilirubin AST ALT Alkaline Phosphatase Troponin I < 0.04 Total Protein Albumin Globulin Albumin/Globulin Ratio Lipase Serum Ketones NEGATIVE 01/27/18 01:28 WBC RBC Hgb Hct MCV MCH MCHC RDW Plt Count MPV Neut # (Auto) Lymph # (Auto) [place] # (Auto) Eos # (Auto) Baso # (Auto) Absolute Nucleated RBC Nucleated RBC % D-Dimer Sodium Potassium Chloride Carbon Dioxide Anion Gap BUN Creatinine Estimated GFR (MDRD) Glucose POC Whole Bld Glucose 220 H Calcium Total Bilirubin AST ALT Alkaline Phosphatase Troponin I Total Protein Albumin Globulin Albumin/Globulin Ratio Lipase Serum Ketones PD MEDICAL DECISION MAKING - ED course Complexity details: reviewed results, re-evaluated patient, considered differential, d/w patient Departure - Departure Disposition: 01 Home, Self Care Clinical Impression: Chest pain, Nausea and vomiting, Hyperglycemia Condition: Good Instructions: ED Chest Pain Atypical Unkn Cause, ED Hyperglycemia Diabetic, ED Nausea Vomiting Follow-Up: [facility] [Provider Group] [facility] [Provider Group] Prescriptions: Ondansetron Odt [Zofran] 4 mg TL Q6H PRN #14 tablet PRN Reason: Nausea / Vomiting Promethazine [Phenergan] 25 - 50 mg PO Q6H PRN #10 tab PRN Reason: Nausea / Vomiting Discharge Date/Time: 01/27/18 03:21
[2018-01-26 22:47] LABS: BASOPHILS # (AUTO) 0.1 10^3/uL (0.0-0.1); BASOPHILS % (AUTO) 0.8 %; EOSINOPHILS # (AUTO) 0.1 10^3/uL (0.0-0.7); EOSINOPHILS % (AUTO) 0.9 %; HGB - HEMOGLOBIN 13.6 g/dL (14.0-18.0); LYMPHOCYTES # (AUTO) 1.1 10^3/uL (1.5-3.5); LYMPHOCYTES % (AUTO) 15.8 %; MEAN CORPUSCULAR HEMOGLOBIN 30.5 pg (27.0-31.0); MEAN CORPUSCULAR HGB CONC 34.2 g/dL (32.0-36.0); MEAN CORPUSCULAR VOLUME 89.1 fL (80.0-94.0); MEAN PLATELET VOLUME 7.5 fL (7.4-11.4); MONOCYTES # (AUTO) 0.4 10^3/uL (0.0-1.0); MONOCYTES % (AUTO) 6.2 %; NEUTROPHILS # (AUTO) 5.4 10^3/uL (1.5-6.6); NEUTROPHILS % (AUTO) 76.3 %; PLT - PLATELET COUNT 358 10^3/uL (130-450); RED BLOOD COUNT 4.47 10^6/uL (4.70-6.10); RED CELL DISTRIBUTION WIDTH 12.5 % (12.0-15.0); WHITE BLOOD COUNT 7.1 x10^3/uL (4.8-10.8)
[2018-01-26] MEDS ORDERED: SODIUM CHLORIDE 0.9% 1,000 ML IV STA (22:47)
[2018-01-26] MEDS ORDERED: ONDANSETRON 4 MG/2 ML VIAL IVP STA (22:47)
[2018-01-26] MEDS ORDERED: INSULIN REGULAR HUMAN 100 UNIT/1 ML 10 ML MDV SUBQ STA (22:48)
[2018-01-26 23:01] LABS: ALBUMIN 3.2 g/dL (3.2-5.5); ALBUMIN/GLOBULIN RATIO 0.7 (1.0-2.2); BILIRUBIN,TOTAL 0.8 mg/dL (0.2-1.0); CREATININE 1.9 mg/dL (0.6-1.2); TOTAL PROTEIN 7.5 g/dL (6.7-8.2)
[2018-01-26] MEDS ORDERED: INSULIN REGULAR HUMAN 100 UNIT/1 ML 10 ML MDV ONE (23:09)
--- NOTE | 2018-01-26 23:19 | XRAY Report ---
Reason: dyspnea Procedure Date: 01/26/2018 Accession Number: [id number] / [id number] Procedure: XR - Chest 2 View X-Ray CPT Code: 53261 FULL RESULT: EXAM: CHEST RADIOGRAPHY EXAM DATE: 01/26/2018 11:04 PM. CLINICAL HISTORY: Dyspnea. COMPARISON: CHEST 1 VIEW 12/17/2017 8:19 PM. TECHNIQUE: 2 views. FINDINGS: Lungs/Pleura: No focal opacities evident. No pleural effusion. No pneumothorax. Normal volumes. Mediastinum: Heart and mediastinal contours are unremarkable. Other: None. IMPRESSION: Normal 2-view chest radiography. RADIA
[2018-01-27] MEDS ORDERED: PROMETHAZINE INJ 25 MG in SODIUM CHLORIDE 0.9% 50 ML IV STA (01:37)
[2018-01-27] MEDS ORDERED: SODIUM CHLORIDE 0.9% 1,000 ML IV STA (01:37)
[2018-01-27] MEDS ORDERED: PANTOPRAZOLE 80 MG in SODIUM CHLORIDE 0.9% 100ML 100 ML IV STA (01:53)
[2018-01-27 03:12] VITALS: BP 129/84
== END 2018-01-27 03:21 | disposition home or self-care (01) ==
LOC: ED 21:41
DX: R07.9 Chest pain, unspecified (principal); R11.2 Nausea with vomiting, unspecified; E10.65 Type 1 diabetes mellitus with hyperglycemia; I10 Essential (primary) hypertension; Z79.4 Long term (current) use of insulin
CPT/HCPCS: 36415; 71046; 80053; 82009; 83690; 84484; 85025; 85379; 93005; 96365; 96367; 96375; 99283; 99284

== ENCOUNTER 2018-01-27 09:36 | Outpatient (CLI) | payer OTHER | END 2018-01-27 09:37 | disposition critical access hospital (66) | LOC: EMS 09:36 | PROVIDERS: ATTEND Surgery | DX: R10.9 Unspecified abdominal pain (principal); R11.2 Nausea with vomiting, unspecified; R73.09 Other abnormal glucose | CPT/HCPCS: A0425; A0427 ==

== ENCOUNTER 2018-01-27 09:54 | Emergency (ER) | payer OTHER ==
[2018-01-27] MEDS ORDERED: ONDANSETRON 4 MG/2 ML VIAL IVP STA (11:04)
[2018-01-27] MEDS ORDERED: SODIUM CHLORIDE 0.9% 1,000 ML IV ONE ×2 (11:04→12:39)
--- NOTE | 2018-01-27 11:08 | ED Physician Documentation ---
PD HPI CHEST PAIN - Stated complaint Stated Complaint: CHEST PAIN - Chief complaint Chief Complaint: Abd Pain - History obtained from History obtained from: Patient - History of Present Illness Timing - onset: Yesterday Timing - details: Still present Location: Substernal Associated symptoms: Nausea, Vomiting Recently seen: Emergency Dept (last night) - Additional information Additional information: The patient is a 37-year-old male with history of type I DM, who has had nausea with multiple episodes of vomiting since yesterday. He reports generalized abdominal pain, and substernal chest pain. He denies fever, cough, shortness of breath, or diarrhea. He was seen in the emergency department here last night with similar symptoms, and returns now because the vomiting and substernal chest pain continue unchanged. Review of his medical records reveals that his blood sugar last night was elevated at 371, with elevated BUN and creatinine of 34 and 1.9. Review of Systems Constitutional: reports: Fatigue. denies: Fever Eyes: denies: Decreased vision Ears: denies: Tinnitus/ringing Nose: denies: Congestion Throat: denies: Sore throat Cardiac: reports: Chest pain / pressure Respiratory: denies: Dyspnea, Cough GI: reports: Abdominal Pain, Nausea, Vomiting. denies: Diarrhea : denies: Dysuria Skin: denies: Rash Musculoskeletal: denies: Back pain, Extremity pain Neurologic: denies: Focal weakness, Numbness, Headache PD PAST MEDICAL HISTORY - Past Medical History Past Medical History: Yes Cardiovascular: High cholesterol, Hypertension Respiratory: None Endocrine/Autoimmune: Type 1 diabetes GI: GERD, Ulcers HEENT: None Psych: Depression, Post traumatic stress disorder Derm: None - Past Surgical History Past Surgical History: No General: Appendectomy - Present Medications Home Medications: Ambulatory Orders Medication Instructions Recorded Confirmed Insulin Aspart [Novolog] 10 units SUBQ TIDWM 05/08/14 01/27/18 Insulin Glargine,Hum.rec.anlog 30 units SUBQ DAILY 05/08/14 01/27/18 [Lantus] Lisinopril/Hydrochlorothiazide 1 tab ORAL DAILY 05/08/14 01/27/18 [Lisinopril-Hctz 10-12.5 mg Tab] Metoprolol Tartrate 50 mg ORAL DAILY 05/08/14 01/27/18 Albuterol Sulf [Ventolin Hfa 1 - 2 puffs INH Q4HR PRN #1 inhaler 04/23/17 01/27/18 Inhaler] Aspirin 81 mg PO DAILY 04/23/17 01/27/18 Atorvastatin [Lipitor] 10 mg ORAL DAILY 04/23/17 01/27/18 Cholecalciferol (Vitamin D3) 2,000 unit PO DAILY 04/23/17 01/27/18 [Vitamin D3] Citalopram [CeleXA] 10 mg PO ONCE 04/23/17 01/27/18 Ibuprofen [Motrin] 600 mg PO TID #30 tab 04/23/17 Insulin Aspart [NovoLOG] unit SQ DAILY 04/23/17 Insulin Glargine [Lantus Solostar] 30 unit SQ BID 04/23/17 01/27/18 Ondansetron Odt [Zofran] 4 mg TL Q6H PRN #14 tablet 01/27/18 Promethazine [Phenergan] 25 - 50 mg PO Q6H PRN #10 tab 01/27/18 - Allergies Allergies/Adverse Reactions: Allergies Allergy/AdvReac Type Severity Reaction Status Date / Time No Known Drug Allergies Allergy Verified 01/27/18 10:23 - Social History Does the pt smoke?: No Smoking Status: Never smoker Does the pt drink ETOH?: No Does the pt have substance abuse?: No - Immunizations Immunizations are current?: Yes - POLST Patient has POLST: No PD ED PE NORMAL - Vitals Vital signs reviewed: Yes (hypertensive) - General General: Alert and oriented X 3, Well developed/nourished, Other (Appears fatigued.) - HEENT HEENT: Atraumatic, Pharynx benign - Neck Neck: Supple, no meningeal sign, No adenopathy - Cardiac Cardiac: No murmur, Other (Rapid rate, regular rhythm.) - Respiratory Respiratory: No respiratory distress, Clear bilaterally - Abdomen Abdomen: Normal bowel sounds, Soft, Non tender - Back Back: No CVA TTP - Derm Derm: No rash - Extremities Extremities: No edema, No calf tenderness / cord - Neuro Neuro: Alert and oriented X 3, No motor deficit, No sensory deficit Results - Vitals Vitals: Vital Signs - 24 hr 01/27/18 01/27/18 01/27/18 10:10 10:44 13:35 Temperature 36.9 C Heart Rate 111 H 112 H 118 H Respiratory 16 16 16 Rate Blood Pressure 213/119 H 187/109 H 172/93 H O2 Saturation 97 100 100 01/27/18 15:06 Temperature Heart Rate 116 H Respiratory 16 Rate Blood Pressure 169/101 H O2 Saturation 100 Oxygen O2 Source Room air - EKG (time done) 13:17 Rate: Rate (enter#) (113) Rhythm: Sinus tachycardia, LAE [place]: Normal QRS: LVH Ischemia: ST elevation c/w repol Compare to prior EKG: Unchanged from prior EKG Computer interpretation: Agree with computer - Labs Labs: Laboratory Tests 01/27/18 01/27/18 01/27/18 11:08 11:14 11:14 WBC 6.9 RBC 4.27 L Hgb 13.1 L Hct 37.8 L MCV 88.5 MCH 30.7 MCHC 34.7 RDW 12.4 Plt Count 347 MPV 7.5 Neut # (Auto) 5.9 Lymph # (Auto) 0.6 L [place] # (Auto) 0.3 Eos # (Auto) 0.0 Baso # (Auto) 0.0 Absolute Nucleated RBC 0.00 Nucleated RBC % 0.0 Sodium 132 L Potassium 4.3 Chloride 98 L Carbon Dioxide 23 Anion Gap 11.0 BUN 28 H Creatinine 1.4 H Estimated GFR (MDRD) 69 L Glucose 406 H Calcium 8.3 L Total Bilirubin 1.0 AST 21 ALT 33 Alkaline Phosphatase 74 Total Protein 6.8 Albumin 3.0 L Globulin 3.8 Albumin/Globulin Ratio 0.8 L Lipase 14 L Urine Color YELLOW Urine Clarity CLEAR Urine pH 6.0 Ur Specific [place] 1.025 Urine Protein 100 H Urine Glucose (UA) >=1000 H Urine Ketones 15 H Urine Occult Blood SMALL H Urine Nitrite NEGATIVE Urine Bilirubin NEGATIVE Urine Urobilinogen 0.2 (NORMAL) Ur Leukocyte Esterase NEGATIVE Urine RBC 0-5 Urine WBC 0-3 Ur Squamous Epith Cells NONE SEEN Urine Bacteria None Seen Ur Microscopic Review INDICATED Urine Culture Comments NOT INDICATED PD MEDICAL DECISION MAKING - ED course Complexity details: reviewed old records, reviewed results, re-evaluated patient, considered differential, d/w patient, d/w family ED course: The patient's presentation is significant for diabetic hyperglycemia, with vomiting and dehydration. His initial blood sugar was elevated at 406, with a BUN and creatinine of 28 and 1.4. He does not have ketoacidosis, with a normal bicarbonate of 23. Treatment in the emergency department included administration of normal saline 2 L IV, Zofran 4 mg IV, insulin 10 units regular subcutaneously and 5 units of regular IV, with subsequent improvement of his blood sugar to 287. His substernal chest discomfort was completely resolved after administration of GI cocktail. The patient has antiemetic at home from a previous prescription. I discussed with him and his symptomatic treatment, outpatient follow-up, as well as potentially worrisome signs or symptoms that should prompt reevaluation in the emergency department. 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 Check your glucose levels, and take insulin as per your sliding scale instructions. Use your previously prescribed antinausea medication as needed. You can drink liquid antacid, such as Maalox or Mylanta, if needed for reflux symptoms. Follow-up with your primary physician within 1 week. Call to schedule appointment. Return to the emergency department if you develop increasing abdominal pain, persistent vomiting, recurrent dehydration, or otherwise worsening symptoms. Discharge Date/Time: 01/27/18 15:16
[2018-01-27 11:23] LABS: BASOPHILS % (AUTO) 0.4 %; EOSINOPHILS % (AUTO) 0.4 %; HGB - HEMOGLOBIN 13.1 g/dL (14.0-18.0); LYMPHOCYTES # (AUTO) 0.6 10^3/uL (1.5-3.5); LYMPHOCYTES % (AUTO) 8.8 %; MEAN CORPUSCULAR HEMOGLOBIN 30.7 pg (27.0-31.0); MEAN CORPUSCULAR HGB CONC 34.7 g/dL (32.0-36.0); MEAN CORPUSCULAR VOLUME 88.5 fL (80.0-94.0); MEAN PLATELET VOLUME 7.5 fL (7.4-11.4); MONOCYTES # (AUTO) 0.3 10^3/uL (0.0-1.0); NEUTROPHILS # (AUTO) 5.9 10^3/uL (1.5-6.6); NEUTROPHILS % (AUTO) 86.4 %; PLT - PLATELET COUNT 347 10^3/uL (130-450); RED BLOOD COUNT 4.27 10^6/uL (4.70-6.10); RED CELL DISTRIBUTION WIDTH 12.4 % (12.0-15.0); WHITE BLOOD COUNT 6.9 x10^3/uL (4.8-10.8)
[2018-01-27 11:25] LABS: BILIRUBIN,URINE NEGATIVE (NEGATIVE); GLUCOSE, URINE (UA) >=1000 mg/dL (NEGATIVE); KETONES,URINE (UA) 15 mg/dL (NEGATIVE); LEUKOCYTE ESTERASE, URINE NEGATIVE (NEGATIVE); NITRITE,URINE NEGATIVE (NEGATIVE); OCCULT BLOOD,URINE SMALL (NEGATIVE); PROTEIN,URINE 100 mg/dL (NEGATIVE); UROBILINOGEN,URINE 0.2 (NORMAL) E.U./dL (NORMAL)
[2018-01-27 11:41] LABS: CLARITY,URINE CLEAR (CLEAR)
[2018-01-27 11:42] LABS: BACTERIA,URINE None Seen /HPF (None Seen); RBC,URINE 0-5 /HPF (0-5); SQUAMOUS EPITHELIAL CELL,UR NONE SEEN (<= Few)
[2018-01-27 11:45] LABS: ALBUMIN/GLOBULIN RATIO 0.8 (1.0-2.2); CALCIUM 8.3 mg/dL (8.5-10.3); CREATININE 1.4 mg/dL (0.6-1.2); TOTAL PROTEIN 6.8 g/dL (6.7-8.2)
[2018-01-27] MEDS ORDERED: INSULIN REGULAR HUMAN 100 UNIT/1 ML 10 ML MDV SUBQ STA (12:37)
[2018-01-27] MEDS ORDERED: INSULIN REGULAR HUMAN 100 UNIT/1 ML 10 ML MDV IVP STA (12:38)
[2018-01-27] MEDS ORDERED: MAG HYDROX/AL HYDROX/SIMETH 30 ML UDC PO STA (13:42)
[2018-01-27] MEDS ORDERED: LIDOCAINE VISCOUS 2% 15 ML UDC MM STA (13:42)
[2018-01-27] MEDS ORDERED: PHENobarb/HYOSCY/ATROPINE/SCOP 5 ML UDC PO STA (13:42)
[2018-01-27 15:06] VITALS: BP 169/101
== END 2018-01-27 15:16 | disposition home or self-care (01) ==
LOC: EDUNIT# → EDBD → ED 09:54
DX: E86.0 Dehydration (principal); R11.2 Nausea with vomiting, unspecified; K21.9 Gastro-esophageal reflux disease without esophagitis; E10.65 Type 1 diabetes mellitus with hyperglycemia; I10 Essential (primary) hypertension; Z79.4 Long term (current) use of insulin; R07.9 Chest pain, unspecified; R05 Cough
CPT/HCPCS: 36415; 71046; 80053; 81001; 82009; 83690; 84484; 85025; 85379; 93005; 96361; 96365; 96367; 96374; 96375; 99283; 99284; A9270; J1815; J7040; 81003; 87086

== ENCOUNTER 2019-03-23 08:12 | Emergency (ER) | payer OTHER ==
[2019-03-23] MEDS ORDERED: hydroCHLOROthiazide 25 MG TABLET PO STA (09:04)
[2019-03-23] MEDS ORDERED: lisinopriL 20 MG TABLET PO STA (09:04)
[2019-03-23] MEDS ORDERED: KETOROLAC 60 MG/2 ML VIAL IM STA (09:05)
--- NOTE | 2019-03-23 09:08 | ED Physician Documentation ---
PD HPI HEADACHE - Stated complaint Stated Complaint: HEADACHE/HIGH BP/VOMITING - Chief complaint Chief Complaint: Neuro - History obtained from History obtained from: Patient - History of Present Illness Timing - onset: How many days ago (2) Timing - onset during: Rest Timing - duration: Days (2) Timing - details: Gradual onset Pain level max: 6 Pain level now: 5 Location: Global Quality: Throbbing, Aching Associated symptoms: Nausea. No: Fever, Stiff neck, Vomiting, Weakness, Numbness, Syncope, Eye pain, Vision changes Improved by: Rest, Dark room Worsened by: Light, Noise Similar symptoms before: Diagnosis (migraines at least 2x per month. this feels similar) Recently seen: Not recently seen - Additional information Additional information: States his blood sugar is 139 today. states blood pressure is high today, but did not take his medications. Patient states that his normal blood pressure is around 160 after medications. 190 before medications. Patient states that the migraine is his usual migraine headache. Did not take anything for this either Review of Systems Constitutional: denies: Fever, Chills Ears: denies: Ear pain Nose: denies: Rhinorrhea / runny nose, Congestion GI: denies: Vomiting, Diarrhea Skin: denies: Rash Musculoskeletal: denies: Neck pain, Back pain Neurologic: denies: Focal weakness, Numbness PD PAST MEDICAL HISTORY - Past Medical History Past Medical History: Yes Cardiovascular: High cholesterol, Hypertension Respiratory: None Endocrine/Autoimmune: Type 1 diabetes GI: GERD, Ulcers HEENT: None Psych: Depression, Post traumatic stress disorder Derm: None - Past Surgical History Past Surgical History: No General: Appendectomy - Present Medications Home Medications: Ambulatory Orders Medication Instructions Recorded Confirmed Insulin Aspart [Novolog] 10 units SUBQ TIDWM 05/08/14 01/27/18 Lisinopril/Hydrochlorothiazide 1 tab ORAL DAILY 05/08/14 01/27/18 [Lisinopril-Hctz 10-12.5 mg Tab] Metoprolol Tartrate 50 mg ORAL DAILY 05/08/14 01/27/18 Albuterol Sulf [Ventolin Hfa 1 - 2 puffs INH Q4HR PRN #1 inhaler 04/23/17 01/27/18 Inhaler] Atorvastatin [Lipitor] 10 mg ORAL DAILY 04/23/17 01/27/18 Cholecalciferol (Vitamin D3) 2,000 unit PO DAILY 04/23/17 01/27/18 [Vitamin D3] Ondansetron Odt [Zofran] 4 mg TL Q6H PRN #14 tablet 01/27/18 Promethazine [Phenergan] 25 - 50 mg PO Q6H PRN #10 tab 01/27/18 Prazosin [Minipress] 2 mg PO DAILY 03/23/19 03/23/19 - Allergies Allergies/Adverse Reactions: Allergies Allergy/AdvReac Type Severity Reaction Status Date / Time No Known Drug Allergies Allergy Verified 03/23/19 08:17 - Social History Does the pt smoke?: No Smoking Status: Never smoker Does the pt drink ETOH?: No Does the pt have substance abuse?: No - Immunizations Immunizations are current?: Yes - POLST Patient has POLST: No PD ED PE NORMAL - Vitals Vital signs reviewed: Yes - General General: Alert and oriented X 3, No acute distress, Well developed/nourished - HEENT HEENT: PERRL, Moist mucous membranes - Neck Neck: Supple, no meningeal sign - Cardiac Cardiac: RRR, Strong equal pulses - Respiratory Respiratory: No respiratory distress, Clear bilaterally - Abdomen Abdomen: Soft, Non tender, Non distended - Derm Derm: Warm and dry - Extremities Extremities: No calf tenderness / cord - Neuro Neuro: Alert and oriented X 3, 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 Headache improved with Toradol. Given his usual home medications and blood pressure decreased. No evidence of subarachnoid hemorrhage. No evidence of tumor. No evidence of meningitis or encephalitis. Patient counseled regarding signs and symptoms for which I believe and urgent re-evaluation would be necessary. Patient with good understanding of and agreement to plan and is comfortable going home at this time This document was made in part using voice recognition software. While efforts are made to proofread this document, sound alike and grammatical errors may occur. Departure - Departure Disposition: 01 Home, Self Care Clinical Impression: Migraine Qualifiers: Migraine type: unspecified Status migrainosus presence: without status migrainosus Intractability: not intractable Qualified Code(s): G43.909 - Migraine, unspecified, not intractable, without status migrainosus Hypertension Qualifiers: Hypertension type: unspecified Qualified Code(s): I10 - Essential (primary) hypertension Condition: Good Instructions: ED HTN Established, ED Headache Migraine Follow-Up: Your,doctor in 1 week [Other] Comments: Follow-up with your doctor for further care. Return if you worsen. Your blood pressure should decrease as you take your medications here. Discharge Date/Time: 03/23/19 10:15
[2019-03-23 10:15] VITALS: BP 165/104
== END 2019-03-23 10:15 | disposition home or self-care (01) ==
LOC: ED 08:12
DX: G43.909 Migraine, unspecified, not intractable, without status migrainosus (principal); I10 Essential (primary) hypertension; E10.9 Type 1 diabetes mellitus without complications
CPT/HCPCS: 96372; 99283; 99284; A9270

== ENCOUNTER 2019-08-10 06:43 | Outpatient (CLI) | payer OTHER | END 2019-08-10 06:44 | disposition critical access hospital (66) | LOC: EMS 06:43 | PROVIDERS: ATTEND Surgery | DX: R10.9 Unspecified abdominal pain (principal); R07.89 Other chest pain; R11.2 Nausea with vomiting, unspecified | CPT/HCPCS: A0425; A0427 ==

== ENCOUNTER 2019-08-10 07:05 | Emergency (ER) | payer OTHER ==
[2019-08-10 07:40] LABS: BASOPHILS % (AUTO) 0.4 %; HGB - HEMOGLOBIN 10.9 g/dL (14.0-18.0); LYMPHOCYTES # (AUTO) 0.6 10^3/uL (1.5-3.5); LYMPHOCYTES % (AUTO) 7.9 %; MEAN CORPUSCULAR HEMOGLOBIN 30.8 pg (27.0-31.0); MEAN CORPUSCULAR VOLUME 87.9 fL (80.0-94.0); MEAN PLATELET VOLUME 9.3 fL (7.4-11.4); MONOCYTES # (AUTO) 0.4 10^3/uL (0.0-1.0); MONOCYTES % (AUTO) 4.8 %; NEUTROPHILS # (AUTO) 6.9 10^3/uL (1.5-6.6); NEUTROPHILS % (AUTO) 86.8 %; PLT - PLATELET COUNT 398 10^3/uL (130-450); RED BLOOD COUNT 3.54 10^6/uL (4.70-6.10); RED CELL DISTRIBUTION WIDTH 12.2 % (12.0-15.0)
[2019-08-10 07:52] LABS: ALBUMIN/GLOBULIN RATIO 0.8 (1.0-2.2); BILIRUBIN,TOTAL 1.1 mg/dL (0.2-1.0); CALCIUM 8.9 mg/dL (8.5-10.3); CREATININE 3.3 mg/dL (0.6-1.2); TOTAL PROTEIN 6.9 g/dL (6.7-8.2)
[2019-08-10] MEDS ORDERED: LABETALOL 20 MG/4 ML SYRINGE IVP STA (08:44)
[2019-08-10] MEDS ORDERED: SODIUM CHLORIDE 0.9% 1,000 ML IV ONE ×3 (08:44→11:19)
[2019-08-10] MEDS ORDERED: NITROGLYCERIN SL 0.4 MG TABLET SL STA (08:44)
[2019-08-10] MEDS ORDERED: ONDANSETRON 4 MG/2 ML VIAL IVP STA (08:44)
--- NOTE | 2019-08-10 08:54 | ED Physician Documentation ---
History of Present Illness - Stated complaint Stated Complaint: CP - Chief complaint Chief Complaint: Abd Pain - History obtained from History obtained from: Patient - History of Present Illness Timing: Yesterday - Additonal information Additional information: Patient comes emergency department complaining of vomiting that started yesterday, along with upper abdominal pain and feeling generally unwell. Patient states that he began to have chest pain that is about a 5 out of 10 that started last night around 2100. He states this pain is substernal and does not radiate any where. It is a pressure type of pain. Patient states he has a history of diabetes and hypertension, but Has no history of coronary artery disease that he knows of. He denies a family history of coronary artery disease. Patient states he takes several medications for hypertension, but has not been able to hold them down since yesterday morning, due to the nausea and vomiting. Patient states that currently, he feels hungry but is still nauseated to. He denies any urinary symptoms. No back pain. No diarrhea. No other complaints at this time. Patient denies any sick contacts. Review of Systems Ten Systems: 10 systems reviewed and negative Constitutional: reports: Other (General malaise) Eyes: reports: Reviewed and negative Ears: reports: Reviewed and negative Nose: reports: Reviewed and negative Throat: reports: Reviewed and negative Cardiac: reports: Chest pain / pressure Respiratory: reports: Reviewed and negative GI: reports: Abdominal Pain, Nausea, Vomiting. denies: Diarrhea : reports: Reviewed and negative Skin: reports: Reviewed and negative Musculoskeletal: reports: Reviewed and negative Neurologic: reports: Reviewed and negative Psychiatric: reports: Reviewed and negative Endocrine: reports: Reviewed and negative Immunocompromised: reports: Reviewed and negative PD PAST MEDICAL HISTORY - Past Medical History Cardiovascular: High cholesterol, Hypertension Respiratory: None Endocrine/Autoimmune: Type 1 diabetes GI: GERD, Ulcers HEENT: None Psych: Depression, Post traumatic stress disorder Derm: None - Past Surgical History Past Surgical History: No General: Appendectomy - Present Medications Home Medications: Ambulatory Orders Medication Instructions Recorded Confirmed Ondansetron Odt [Zofran Odt] 4 mg TL Q6H PRN #10 tablet 08/10/19 08/12/19 Pantoprazole [Protonix] 40 mg PO BID #60 tablet 08/10/19 08/12/19 Insulin Aspart [Novolog] .CONTINUOUS PUMP 08/12/19 Promethazine HCl 25 mg PO Q6H PRN 08/12/19 08/12/19 Promethazine Supp [Phenergan Supp] 25 mg AK [id number] 08/12/19 08/12/19 - Allergies Allergies/Adverse Reactions: Allergies Allergy/AdvReac Type Severity Reaction Status Date / Time No Known Drug Allergies Allergy Verified 08/11/19 23:37 - Social History Does the pt smoke?: No Smoking Status: Never smoker Does the pt drink ETOH?: No Does the pt have substance abuse?: No - Immunizations Immunizations are current?: Yes - POLST Patient has POLST: No PD ED PE NORMAL - Vitals Vital signs reviewed: Yes - General General: Alert and oriented X 3, No acute distress - HEENT HEENT: Atraumatic, PERRL, EOMI, Moist mucous membranes - Neck Neck: Supple, no meningeal sign - Cardiac Cardiac: RRR, No murmur, Strong equal pulses - Respiratory Respiratory: No respiratory distress, Clear bilaterally - Abdomen Abdomen: Soft, Non distended, Other (Patient has tenderness over his abdomen diffusely, but especially in the epigastric area of the left upper quadrant.) - Derm Derm: Normal color, Warm and dry, No rash - Extremities Extremities: No deformity, No edema, No calf tenderness / cord - Neuro Neuro: Alert and oriented X 3, engagement mgr 2-12 intact, No motor deficit, No sensory deficit, Normal speech - Psych Psych: Normal mood, Normal affect Results - Vitals Vitals: Oxygen O2 Source Room air - EKG (time done) 0715 Rate: Rate (enter#) (104) Rhythm: Sinus tachycardia Aragon: Normal Intervals: Normal AK QRS: LVH Ischemia: ST elevation c/w repol Compare to prior EKG: Old EKG unavailable Computer interpretation: Agree with computer - Labs Labs: Laboratory Tests 08/10/19 08/10/19 08/10/19 07:22 07:30 07:30 WBC 8.0 RBC 3.54 L Hgb 10.9 L Hct 31.1 L MCV 87.9 MCH 30.8 MCHC 35.0 RDW 12.2 Plt Count 398 MPV 9.3 Neut # (Auto) 6.9 H Lymph # (Auto) 0.6 L [place] # (Auto) 0.4 Eos # (Auto) 0.0 Baso # (Auto) 0.0 Absolute Nucleated RBC 0.00 Nucleated RBC % 0.0 Sodium 139 Potassium 3.5 Chloride 107 Carbon Dioxide 22 Anion Gap 10.0 BUN 35 H Creatinine 3.3 H Estimated GFR (MDRD) 25 L Glucose 133 H POC Whole Bld Glucose 131 H Calcium 8.9 Total Bilirubin 1.1 H AST 19 ALT 16 Alkaline Phosphatase 66 Troponin I High Sens Total Protein 6.9 Albumin 3.0 L Globulin 3.9 Albumin/Globulin Ratio 0.8 L Lipase 19 L Urine Color Urine Clarity Urine pH Ur Specific [place] Urine Protein Urine Glucose (UA) Urine Ketones Urine Occult Blood Urine Nitrite Urine Bilirubin Urine Urobilinogen Ur Leukocyte Esterase Urine RBC Urine WBC Ur Squamous Epith Cells Urine Bacteria Urine Casts Urine Sperm Ur Microscopic Review Urine Culture Comments 08/10/19 08/10/19 08/10/19 07:30 07:30 07:30 WBC RBC Hgb Hct MCV MCH MCHC RDW Plt Count MPV Neut # (Auto) Lymph # (Auto) [place] # (Auto) Eos # (Auto) Baso # (Auto) Absolute Nucleated RBC Nucleated RBC % Sodium 140 Potassium 3.5 Chloride 107 Carbon Dioxide 23 Anion Gap 10.0 BUN 34 H Creatinine 3.2 H Estimated GFR (MDRD) 26 L Glucose 128 H POC Whole Bld Glucose Calcium 8.9 Total Bilirubin AST ALT Alkaline Phosphatase Troponin I High Sens 18.6 Total Protein Albumin Globulin Albumin/Globulin Ratio Lipase 18 L Urine Color Urine Clarity Urine pH Ur Specific [place] Urine Protein Urine Glucose (UA) Urine Ketones Urine Occult Blood Urine Nitrite Urine Bilirubin Urine Urobilinogen Ur Leukocyte Esterase Urine RBC Urine WBC Ur Squamous Epith Cells Urine Bacteria Urine Casts Urine Sperm Ur Microscopic Review Urine Culture Comments 08/10/19 08/10/19 09:52 11:05 WBC RBC Hgb Hct MCV MCH MCHC RDW Plt Count MPV Neut # (Auto) Lymph # (Auto) [place] # (Auto) Eos # (Auto) Baso # (Auto) Absolute Nucleated RBC Nucleated RBC % Sodium Potassium Chloride Carbon Dioxide Anion Gap BUN Creatinine Estimated GFR (MDRD) Glucose POC Whole Bld Glucose Calcium Total Bilirubin AST ALT Alkaline Phosphatase Troponin I High Sens 18.4 Total Protein Albumin Globulin Albumin/Globulin Ratio Lipase Urine Color YELLOW Urine Clarity CLEAR Urine pH 6.0 Ur Specific [place] 1.020 Urine Protein >=300 H Urine Glucose (UA) 100 H Urine Ketones NEGATIVE Urine Occult Blood MODERATE H Urine Nitrite NEGATIVE Urine Bilirubin NEGATIVE Urine Urobilinogen 0.2 (NORMAL) Ur Leukocyte Esterase NEGATIVE Urine RBC 0-5 Urine WBC 0-3 Ur Squamous Epith Cells FEW Squamous Urine Bacteria Few Urine Casts 0-2 Hyaline Casts Urine Sperm PRESENT Ur Microscopic Review INDICATED Urine Culture Comments NOT INDICATED PD MEDICAL DECISION MAKING - ED course Complexity details: reviewed results, re-evaluated patient, considered differential, d/w patient ED course: Patient was worked up with labs and EKG, which were unremarkable. The patient was treated with IV fluids, Zofran, and labetalol, as well as given a nitroglycerin for his chest pain. The patient had risk factors for coronary artery disease, including diabetes and hypertension, but was fairly young at 39 years old. However, given his risk factors coronary artery disease and related chest pain was still a consideration. I did also consider that the patient has been vomiting since yesterday and the pain may be esophageal in nature. Nitroglycerin was minimally effective. Repeat troponin was unremarkable. The pt was found initially to have a GFR of 25, and I did repeat this after 2 liters of IV fluid, and it was minimally changed at 26. The pt already sees a sql ssrs developer for diabetes-related renal insufficiency, and I felt he likely was at baseline. The pt stated that the main thing bothering him was his epigastric pain and nausea. He was treated with Phenergan and Protonix for this after some initial relief with the Zofran, and was found to be feeling better. I felt he had most likely had an exacerbation of his diabetic gastroparesis. I have d/w pt that it is very important that he get back on his antihypertensives as soon as possible. We have treated the pt in the ED with parenteral antihypertensives, because of his nausea and vomiting, but the best would be his own regimen. Pt states he would like to try Protonix at home, as this has been more helpful than his home antacids. I have prescribed this for him. Pt is stable for d/c home. We have discussed the usual indications for return. Departure - Departure Disposition: 01 Home, Self Care Clinical Impression: Gastroparesis diabeticorum, Renal insufficiency Abdominal pain Qualifiers: Abdominal location: left upper quadrant Qualified Code(s): R10.12 - Left upper quadrant pain Vomiting Qualifiers: Vomiting type: bilious vomiting Nausea presence: with nausea Qualified Code(s): R11.14 - Bilious vomiting Condition: Stable Instructions: ED Nausea Vomiting, ED Diabetic Gastroparesis Prescriptions: Ondansetron Odt [Zofran Odt] 4 mg TL Q6H PRN #10 tablet PRN Reason: Nausea / Vomiting Pantoprazole [Protonix] 40 mg PO BID #60 tablet Comments: Your labs look good, except for your kidney labs, which have been stable at around the same level while you it is important that when you are feeling better, you follow-up with your sql ssrs developer, or kidney specialist, to determine whether your kidney function is stable or whether it is steadily you have been treated with medication for your high blood pressure here in the emergency department, but the most important thing is for you to get back on your blood pressure medications at home. Please take the nausea medicine as prescribed and see if you can keep your medications down, one your stomach is feeling better. Discharge Date/Time: 08/10/19 12:25
[2019-08-10] MEDS ORDERED: PANTOPRAZOLE 40 MG VIAL IV STA (09:23)
--- NOTE | 2019-08-10 10:46 | CT Report ---
Reason: LLQ abd pain, GFR 25 Procedure Date: 08/10/2019 Accession Number: [id number] / [id number] Procedure: CT - Abdomen/Pelvis WO CPT Code: Final Report FULL RESULT: EXAM: CT ABDOMEN AND PELVIS EXAM DATE: 08/10/2019 10:10 AM. CLINICAL HISTORY: Left lower quadrant abdominal pain, GFR 25. COMPARISONS: None. TECHNIQUE: Routine helical CT imaging was performed through the abdomen and pelvis. IV contrast: None. Enteric contrast: No. Reconstructions: Coronal and sagittal. In accordance with CT protocol optimization, one or more of the following dose reduction techniques were utilized for this exam: automated exposure control, adjustment of mA and/or KV based on patient size, or use of iterative reconstructive technique. FINDINGS: Lung Bases: Heart size upper normal. Lung bases are clear. Small hiatal hernia. Liver: Unenhanced images of the liver are unremarkable. Gallbladder/Bile Ducts: Unremarkable. Spleen: Normal. Pancreas: Normal. Adrenal Glands: Normal. Kidneys: Bilateral perinephric stranding. No hydronephrosis or nephrolithiasis. Peritoneal Cavity/Bowel: No bowel obstruction. Small volume of stool in the colon. No free air. No diverticulitis. No focal bowel wall thickening on these unenhanced images. Appendix not distinctly seen. Pelvic Organs: No bladder calculi. Seminal vesicle calcifications. No pelvic adenopathy or pelvic free fluid. Vasculature: Vascular calcifications per aneurysm. Bones: No osseous abnormalities. Other: Mild subcutaneous edema. IMPRESSION: 1. No bowel obstruction. No evidence of diverticulitis. 2. Appendix not visualized. No pericecal inflammatory changes. 3. Mild bilateral perinephric stranding. No hydronephrosis. No nephrolithiasis. No bladder calculi. 4. Small hiatal hernia. RADIA
[2019-08-10 11:12] LABS: CALCIUM 8.9 mg/dL (8.5-10.3); CREATININE 3.2 mg/dL (0.6-1.2)
[2019-08-10] MEDS ORDERED: PROMETHAZINE INJ 25 MG in SODIUM CHLORIDE 0.9% 50 ML IV STA (11:19)
[2019-08-10 11:21] LABS: BILIRUBIN,URINE NEGATIVE (NEGATIVE); GLUCOSE, URINE (UA) 100 mg/dL (NEGATIVE); KETONES,URINE (UA) NEGATIVE (NEGATIVE); LEUKOCYTE ESTERASE, URINE NEGATIVE (NEGATIVE); NITRITE,URINE NEGATIVE (NEGATIVE); OCCULT BLOOD,URINE MODERATE (NEGATIVE); PROTEIN,URINE >=300 mg/dL (NEGATIVE); UROBILINOGEN,URINE 0.2 (NORMAL) E.U./dL (NORMAL)
[2019-08-10 11:25] LABS: CLARITY,URINE CLEAR (CLEAR)
[2019-08-10] MEDS ORDERED: HYDROmorphone 1 MG/ML CARPUJECT IVP STA (11:26)
[2019-08-10 11:41] LABS: BACTERIA,URINE Few /HPF (None Seen); RBC,URINE 0-5 /HPF (0-5); SQUAMOUS EPITHELIAL CELL,UR FEW Squamous (<= Few)
[2019-08-10 11:42] LABS: SPERM,URINE PRESENT
[2019-08-10 12:25] VITALS: BP 173/95
== END 2019-08-10 12:25 | disposition home or self-care (01) ==
LOC: ED 07:05
DX: E10.43 Type 1 diabetes mellitus with diabetic autonomic (poly)neuropathy (principal); K31.84 Gastroparesis; E10.21 Type 1 diabetes mellitus with diabetic nephropathy; N28.9 Disorder of kidney and ureter, unspecified; R07.89 Other chest pain; R00.0 Tachycardia, unspecified; I10 Essential (primary) hypertension
CPT/HCPCS: 36415; 74176; 80048; 80053; 81001; 83690; 84484; 85025; 93005; 96361; 96365; 96375; 99284; A9270; J1170; J7040; 81003; 87086

== ENCOUNTER 2019-08-11 23:31 | Inpatient (IN) | payer OTHER ==
--- NOTE | 2019-08-11 23:35 | ED Physician Documentation ---
History of Present Illness - Stated complaint Stated Complaint: AB PX - Chief complaint Chief Complaint: Abd Pain - History obtained from History obtained from: Patient (Patient is a 39-year-old male who is a insulin- dependent buttock was seen here yesterday for abdominal pain he had a negative CT scan of the abdomen and pelvis it was noted that he had a creatinine of 3.3 however the patient ultimately was discharged home. He presents today with worsening abdominal pain and vomiting he also reports ports diffuse body aches as well. Denies chest pain or any syncopal episodes denies any fevers he has had a previous appendectomy.He also reports he has hypertension and it is being treated medically currently.) Review of Systems Constitutional: reports: Reviewed and negative Eyes: reports: Reviewed and negative Ears: reports: Reviewed and negative Nose: reports: Reviewed and negative Throat: reports: Reviewed and negative Cardiac: reports: Reviewed and negative Respiratory: reports: Reviewed and negative GI: reports: Abdominal Pain, Nausea, Vomiting : reports: Reviewed and negative Skin: reports: Reviewed and negative Musculoskeletal: reports: Reviewed and negative Neurologic: reports: Reviewed and negative Psychiatric: reports: Reviewed and negative Endocrine: reports: Reviewed and negative Immunocompromised: reports: Reviewed and negative PD PAST MEDICAL HISTORY - Past Medical History Cardiovascular: High cholesterol, Hypertension Respiratory: None Endocrine/Autoimmune: Type 1 diabetes GI: GERD, Ulcers HEENT: None Psych: Depression, Post traumatic stress disorder Derm: None - Past Surgical History Past Surgical History: No General: Appendectomy - Present Medications Home Medications: Ambulatory Orders Medication Instructions Recorded Confirmed Insulin Aspart [Novolog] 10 units SUBQ TIDWM 05/08/14 01/27/18 Lisinopril/Hydrochlorothiazide 1 tab ORAL DAILY 05/08/14 01/27/18 [Lisinopril-Hctz 10-12.5 mg Tab] Metoprolol Tartrate 50 mg ORAL DAILY 05/08/14 01/27/18 Albuterol Sulf [Ventolin Hfa 1 - 2 puffs INH Q4HR PRN #1 inhaler 04/23/17 01/27/18 Inhaler] Atorvastatin [Lipitor] 10 mg ORAL DAILY 04/23/17 01/27/18 Cholecalciferol (Vitamin D3) 2,000 unit PO DAILY 04/23/17 01/27/18 [Vitamin D3] Ondansetron Odt [Zofran] 4 mg TL Q6H PRN #14 tablet 01/27/18 Promethazine [Phenergan] 25 - 50 mg PO Q6H PRN #10 tab 01/27/18 Prazosin [Minipress] 2 mg PO DAILY 03/23/19 03/23/19 Ondansetron Odt [Zofran Odt] 4 mg TL Q6H PRN #10 tablet 08/10/19 Pantoprazole [Protonix] 40 mg PO BID #60 tablet 08/10/19 Promethazine Supp [Phenergan Supp] 25 mg [place] RTQ6H 3 Days #12 supp 08/10/19 - Allergies Allergies/Adverse Reactions: Allergies Allergy/AdvReac Type Severity Reaction Status Date / Time No Known Drug Allergies Allergy Verified 08/11/19 23:37 - Social History Does the pt smoke?: No Smoking Status: Never smoker Does the pt drink ETOH?: No Does the pt have substance abuse?: No - Immunizations Immunizations are current?: Yes - POLST Patient has POLST: No PD ED PE NORMAL - Vitals Vital signs reviewed: Yes - General General: Alert and oriented X 3, No acute distress, Well developed/nourished - HEENT HEENT: Atraumatic, PERRL, Moist mucous membranes - Neck Neck: Supple, no meningeal sign - Cardiac Cardiac: RRR, No murmur, Strong equal pulses - Respiratory Respiratory: No respiratory distress, Clear bilaterally - Abdomen Abdomen: Normal bowel sounds, Soft, No organomegaly, Other (The abdomen is diffusely tender but there is no peritoneal signs currently there is no midline abdominal pulsatile mass no CVA tenderness negative Rovsing's negative psoas negative Gagnon sign.) - Derm Derm: Warm and dry - Extremities Extremities: No deformity - Neuro Neuro: Alert and oriented X 3, 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, No motor deficit, No sensory deficit, Normal speech - Psych Psych: Normal mood, Normal affect Results - Vitals Vitals: Vital Signs - 24 hr 08/11/19 23:34 Temperature 37.6 C H Heart Rate 113 H Respiratory 18 Rate Blood Pressure 198/118 H O2 Saturation 99 Oxygen O2 Source Room air - EKG (time done) No standard instances Rate: Other (no stemi) - Labs Labs: Laboratory Tests 08/11/19 08/11/19 08/11/19 23:55 23:55 23:55 WBC 9.8 RBC 3.58 L Hgb 11.0 L Hct 31.5 L MCV 88.0 MCH 30.7 MCHC 34.9 RDW 12.5 Plt Count 361 MPV 9.5 Neut # (Auto) 7.7 H Lymph # (Auto) 1.0 L [place] # (Auto) 0.9 Eos # (Auto) 0.0 Baso # (Auto) 0.1 Absolute Nucleated RBC 0.00 Nucleated RBC % 0.0 PT 13.2 H INR 1.2 APTT 25.8 VBG pH VBG pCO2 VBG pO2 VBG HCO3 VBG Total CO2 VBG O2 Saturation VBG Base Excess Sodium 136 Potassium 3.4 L Chloride 103 Carbon Dioxide 22 Anion Gap 11.0 BUN 41 H Creatinine 3.3 H Estimated GFR (MDRD) 25 L Glucose 218 H Lactic Acid Calcium 8.5 Phosphorus 4.8 H Magnesium 1.7 Total Bilirubin 1.0 AST 29 ALT 18 Alkaline Phosphatase 64 Total Creatine Kinase 974 H Troponin I High Sens B-Natriuretic Peptide Total Protein 7.0 Albumin 3.0 L Globulin 4.0 Albumin/Globulin Ratio 0.8 L Lipase 19 L TSH Ethyl Alcohol < 5.0 Serum Ketones NEGATIVE 08/11/19 08/11/19 08/11/19 23:55 23:55 23:55 WBC RBC Hgb Hct MCV MCH MCHC RDW Plt Count MPV Neut # (Auto) Lymph # (Auto) [place] # (Auto) Eos # (Auto) Baso # (Auto) Absolute Nucleated RBC Nucleated RBC % PT INR APTT VBG pH VBG pCO2 VBG pO2 VBG HCO3 VBG Total CO2 VBG O2 Saturation VBG Base Excess Sodium Potassium Chloride Carbon Dioxide Anion Gap BUN Creatinine Estimated GFR (MDRD) Glucose Lactic Acid 1.2 Calcium Phosphorus Magnesium Total Bilirubin AST ALT Alkaline Phosphatase Total Creatine Kinase Troponin I High Sens B-Natriuretic Peptide 272 H Total Protein Albumin Globulin Albumin/Globulin Ratio Lipase TSH 1.76 Ethyl Alcohol Serum Ketones 08/11/19 08/11/19 23:55 23:55 WBC RBC Hgb Hct MCV MCH MCHC RDW Plt Count MPV Neut # (Auto) Lymph # (Auto) [place] # (Auto) Eos # (Auto) Baso # (Auto) Absolute Nucleated RBC Nucleated RBC % PT INR APTT VBG pH 7.386 VBG pCO2 41.2 VBG pO2 66.8 H VBG HCO3 24.2 VBG Total CO2 25.4 VBG O2 Saturation 92.6 H VBG Base Excess -0.8 Sodium Potassium Chloride Carbon Dioxide Anion Gap BUN Creatinine Estimated GFR (MDRD) Glucose Lactic Acid Calcium Phosphorus Magnesium Total Bilirubin AST ALT Alkaline Phosphatase Total Creatine Kinase Troponin I High Sens 50.3 H* B-Natriuretic Peptide Total Protein Albumin Globulin Albumin/Globulin Ratio Lipase TSH Ethyl Alcohol Serum Ketones PD MEDICAL DECISION MAKING - ED course Complexity details: considered differential (Patient seen here yesterday with a similar presentation he had a negative CT scan the abdomen and pelvis it was noted that his creatinine was 3.3 and the differential diagnosis would be hypertensive urgency/emergency, diabetic gastroparesis, dehydration and acute kidney injury DKA.) - Consults Consults: Discussed case with (01:01 dr. wadsworth, will admit) - Critical Care Time(min): 30 Time Includes: Direct patient care, Review records, Reassess patient, Document care, Coordinate care, Medical consult Data interpretation: Labs, Pulse ox, CXR, Prior EKG Procedures included in critical care time: Peripheral IV Procedures excluded from critical care time: EKG Departure - Departure Disposition: 66 [facility] DC/Xfer Clinical Impression: Insulin dependent diabetes mellitus, Hypertensive urgency, Acute kidney injury Condition: Stable
[2019-08-11] MEDS ORDERED: ONDANSETRON 4 MG/2 ML VIAL IVP STA (23:45)
[2019-08-11] MEDS ORDERED: MORPHINE 2 MG/ML CARPUJECT IVP STA (23:45)
[2019-08-11] MEDS ORDERED: SODIUM CHLORIDE 0.9% 1,000 ML IV ONE (23:45)
[2019-08-12 00:11] LABS: BASOPHILS # (AUTO) 0.1 10^3/uL (0.0-0.1); BASOPHILS % (AUTO) 0.5 %; EOSINOPHILS % (AUTO) 0.4 %; LYMPHOCYTES % (AUTO) 10.2 %; MEAN CORPUSCULAR HEMOGLOBIN 30.7 pg (27.0-31.0); MEAN CORPUSCULAR HGB CONC 34.9 g/dL (32.0-36.0); MEAN PLATELET VOLUME 9.5 fL (7.4-11.4); MONOCYTES # (AUTO) 0.9 10^3/uL (0.0-1.0); MONOCYTES % (AUTO) 9.1 %; NEUTROPHILS # (AUTO) 7.7 10^3/uL (1.5-6.6); NEUTROPHILS % (AUTO) 79.4 %; PLT - PLATELET COUNT 361 10^3/uL (130-450); RED BLOOD COUNT 3.58 10^6/uL (4.70-6.10); RED CELL DISTRIBUTION WIDTH 12.5 % (12.0-15.0); WHITE BLOOD COUNT 9.8 x10^3/uL (4.8-10.8)
[2019-08-12 00:13] LABS: VBG BASE EXCESS -0.8 mmol/L (-2 - +2); VBG PCO2 41.2 mmHg (41-51); VBG PH 7.386 (7.31-7.41); VBG PO2 66.8 mmHg (25-47); VBG TOTAL CO2 25.4 mmol/L (24-29)
--- NOTE | 2019-08-12 00:18 | XRAY Report ---
Reason: sob Procedure Date: 08/12/2019 Accession Number: [id number] / [id number] Procedure: XR - Chest 1 View X-Ray CPT Code: 29254 Final Report FULL RESULT: EXAM: CHEST RADIOGRAPHY EXAM DATE: 08/12/2019 12:07 AM CLINICAL HISTORY: Sob. COMPARISON: CHEST 2 VIEW 01/26/2018 10:49 PM. TECHNIQUE: 1 view. FINDINGS: Lungs/Pleura: Clear lungs. No pleural effusion. No pneumothorax. Mediastinum: Within exam limitations, the cardiomediastinal contour is normal. Other: None. IMPRESSION: Normal single view chest radiography. RADIA
[2019-08-12 00:21] LABS: KETONES, SERUM (ACETEST) NEGATIVE (NEGATIVE)
[2019-08-12 00:25] LABS: INR 1.2 (0.8-1.2); PT - PROTHROMBIN TIME 13.2 secs (9.9-12.6)
[2019-08-12 00:28] LABS: ALBUMIN/GLOBULIN RATIO 0.8 (1.0-2.2); ALKALINE PHOSPHATASE 64 IU/L (42-121); ALT ALANINE AMINOTRANSFERASE 18 IU/L (10-60); AST ASPARTATE AMINOTRANSFERASE 29 IU/L (10-42); BUN - BLOOD UREA NITROGEN 41 mg/dL (6-20); CALCIUM 8.5 mg/dL (8.5-10.3); CARBON DIOXIDE - CO2 22 mmol/L (21-32); CHLORIDE 103 mmol/L (101-111); CK- CREATINE KINASE 974 IU/L (22-269); CREATININE 3.3 mg/dL (0.6-1.2); GLUCOSE 218 mg/dL (70-100); LIPASE 19 U/L (22-51); MAGNESIUM 1.7 mg/dL (1.7-2.8); PHOSPHORUS 4.8 mg/dL (2.5-4.6); SODIUM 136 mmol/L (135-145)
[2019-08-12 00:32] LABS: PARTIAL THROMBOPLASTIN TIME 25.8 secs (24.9-33.3)
[2019-08-12] MEDS ORDERED: LABETALOL 20 MG/4 ML SYRINGE IVP STA (01:03)
[2019-08-12] MEDS ORDERED: ONDANSETRON 4 MG/2 ML VIAL IVP PRN (01:15)
--- NOTE | 2019-08-12 01:45 | HISTORY & PHYSICAL EXAMINATION ---
Chief Complaint - Chief Complaint Chief Complaint: abdominal pain History of Present Illness - Admitted From Admitted From:: [facility] ED - History Obtained From Records Reviewed: yes History obtained from: patient Exam Limitations: none - History of Present Illness HPI Comment/Other: Patient is a 39-year-old male with history of diabetes mellitus on an insulin pump, hypertension, kidney disease, hyperlipidemia and GERD who presented to the ED with complaint of abdominal pain. It is mainly diffuse but it is worse around the periumbilical area. Patient has significant tenderness to palpation of the entire abdomen. He had presented to the ED the previous day and had a CT of the abdomen pelvis without contrast done. It showed some perinephric stranding. The rest of it was unremarkable. He returned to the ED today because the pain was worse. He described it as a sharp pain which started 3 days ago. He denies chest pain or dyspnea. He reported nausea/vomiting. His last bowel movement was 3 days ago. He has been having some difficulties urinating. His urine color has been dark yellow. In the ED his systolic blood pressure has been as high as 220. He was also tachycardic with a heart rate of 109. He was found to have a troponin of 50 with a BNP of 272. His creatinine was 3.3 and CK of 974. As a result of the lab findings and his physical presentation he is being admitted for further treatment. History - Past Medical History Cardiovascular: reports: High cholesterol, Hypertension Respiratory: reports: None Endocrine/Autoimmune: reports: Type 1 diabetes GI: reports: GERD, Ulcers HEENT: reports: None Psych: reports: Depression, Post traumatic stress disorder Derm: reports: None MRSA Hx?: No - Past Surgical History General: reports: Appendectomy - Family & Social History Family History: Mother: Diabetes, Type 1, Renal Disease/Failure (On hemodialysis), Father: Hypertension Living arrangement: At home Living Situation: With family Social History Notes: He does not drink, smoke or use illicit drugs. He lives at home with his and daughter. - POLST Patient has POLST: No Meds/Allgy - Home Medications Home Medications: Ambulatory Orders Medication Instructions Recorded Confirmed Insulin Aspart [Novolog] 10 units SUBQ TIDWM 05/08/14 01/27/18 Lisinopril/Hydrochlorothiazide 1 tab ORAL DAILY 05/08/14 01/27/18 [Lisinopril-Hctz 10-12.5 mg Tab] Metoprolol Tartrate 50 mg ORAL DAILY 05/08/14 01/27/18 Albuterol Sulf [Ventolin Hfa 1 - 2 puffs INH Q4HR PRN #1 inhaler 04/23/17 01/27/18 Inhaler] Atorvastatin [Lipitor] 10 mg ORAL DAILY 04/23/17 01/27/18 Cholecalciferol (Vitamin D3) 2,000 unit PO DAILY 04/23/17 01/27/18 [Vitamin D3] Ondansetron Odt [Zofran] 4 mg TL Q6H PRN #14 tablet 01/27/18 Promethazine [Phenergan] 25 - 50 mg PO Q6H PRN #10 tab 01/27/18 Prazosin [Minipress] 2 mg PO DAILY 03/23/19 03/23/19 Ondansetron Odt [Zofran Odt] 4 mg TL Q6H PRN #10 tablet 08/10/19 Pantoprazole [Protonix] 40 mg PO BID #60 tablet 08/10/19 Promethazine Supp [Phenergan Supp] 25 mg [place] RTQ6H 3 Days #12 supp 08/10/19 - Allergies Allergies/Adverse Reactions: Allergies Allergy/AdvReac Type Severity Reaction Status Date / Time No Known Drug Allergies Allergy Verified 08/11/19 23:37 Review of Systems - Constitutional Constitutional: reports: Weakness. denies: Fever, Chills - Eyes Eyes: denies: Pain - Ears, Nose & Throat Ears, Nose & Throat: denies: Vertigo, Sore throat - Cardiovascular Cariovascular: reports: Palpitations. denies: Chest pain, Edema, Lightheadedness, Syncope - Respiratory Respiratory: denies: Wheezing, SOB at rest, SOB with exertion - Gastrointestinal Gastrointestinal: reports: Abdominal pain, Nausea, Vomiting, Reflux/heartburn. denies: Abdominal distention, Black stools, Coffee grounds emesis - Genitourinary Genitourinary: reports: Dysuria. denies: Frequency, Urgency, Hematuria - Musculoskeletal Musculoskeletal: denies: Muscle pain, Back pain, Muscle aches - Integumentary Integumentary: denies: Rash, Pruritis, Lesions - Neurological Neurological: reports: General weakness. denies: Focal weakness, Headache - Psychiatric Psychiatric: denies: Depression, Anxiety - Endocrine Endocrine: denies: Polyuria, Polydypsia - Hematologic/Lymphatic Hematologic/Lymphatic: denies: Anemia, Bruising, Petechiae Prior Level of Functionality: He is independent of activities of daily living Exam - Vital Signs Vital Signs: Vital Signs x48h Temp Pulse Resp BP Pulse Ox 08/12/19 01:27 101 H 14 209/112 H 100 08/11/19 23:34 37.6 C H 113 H 18 198/118 H 99 - Physical Exam General Appearance: positive: Alert, Moderate distress, Severe distress, Lethargic Eyes Bilateral: positive: PERRL, EOMI ENT: positive: Dry mucous membranes Neck: positive: No JVD, Trachea midline Respiratory: positive: Chest non-tender, No respiratory distress, Breath sounds nml. negative: Wheezes, Rales, Rhonchi Cardiovascular: positive: Tachycardia, Systolic murmur Abdomen: positive: No organomegaly, Nml bowel sounds, No distention, Tenderness, Guarding. negative: Rebound Back: positive: Nml inspection Skin: positive: Color nml, No rash, Warm, Dry Extremities: positive: Non-tender, Nml appearance, No pedal edema Neurologic/Psychiatric: positive: Oriented x3, Motor nml, Sensation nml, Mood/affect nml Conclusion/Plan - Problem List (1) Hypertensive urgency Conclusion/Plan: Labetalol 20 mg IV every 4 hours PRN ordered for systolic blood pressure greater than 160 Hydralazine 10 mg IV every 4 hours PRN ordered for systolic blood pressure greater than 160. We will hold patient's hydrochlorothiazide/lisinopril for now due to acute kidney injury. Patient is on metoprolol tartrate at home. Will resume once verified. (2) Acute kidney injury Conclusion/Plan: Patient's creatinine is 3.3 with an estimated GFR of 25. It would appear patient has some chronic kidney disease. This is likely related to uncontrolled high blood pressure diabetes He has seen a burnisher and bumper by name Dr. Mark at the [facility] [place]. Acute injury is likely due to hypertensive urgency. Furthermore patient's CK was 974. We cannot rule out rhabdomyolysis. Patient is on normal saline at 125 mils per hour. Renal ultrasound has been ordered. Urinalysis is still pending. Patient has been having some dysuria. We will do a bladder scan. Will check urine sodium and creatinine to calculate fractional excretion of sodium We will continue to monitor renal function (3) Insulin dependent diabetes mellitus Conclusion/Plan: Likely type 1 diabetes mellitus. Patient has an insulin pump. Patient will manage his pump. We will do Accu-Cheks every 6 hours. Check hemoglobin A1c (4) Abdominal pain Conclusion/Plan: Etiology undetermined. CT of the abdomen and pelvis done without contrast yesterday was unremarkable for any significant process. It only showed mild perinephric stranding. Patient has not had a bowel movement in 3 days. It is possible abdominal pain could be related to gastroparesis in light of patient's diabetes. Also cannot rule out rhabdomyolysis. Patient's CK is 974. Lipase was 19. Lactic acid was 1.2. We will order Reglan 5mg IV every 6 hours. Patient receiving IV hydration with normal saline at 125 mils per hour Qualifiers: Abdominal location: left upper quadrant Qualified Code(s): R10.12 - Left upper quadrant pain (5) Hyperlipidemia Conclusion/Plan: Patient is on atorvastatin. Will resume once verified. (6) GERD (gastroesophageal reflux disease) Conclusion/Plan: Protonix 40 mg po daily ordered - Lab Results Fish Bones: 08/11/19 23:55 08/11/19 23:55 Core Measures - Anticipated LOS I expect patient to be DC'd or transferred within 96 hours.: Yes - DVT/VTE - Prophylaxis VTE/DVT Device ordered at admit?: Yes VTE/DVT Prophylaxis med ordered at admit?: Yes
[2019-08-12] MEDS: SODIUM CHLORIDE FLUSH 0.9% 10 ML SYRINGE IVP PRN (01:58)
[2019-08-12] MEDS: MORPHINE 2 MG/ML CARPUJECT IVP PRN ×8 (01:58→22:48)
[2019-08-12] MEDS ORDERED: SODIUM CHLORIDE 0.9% 1,000 ML IV SCH ×2 (02:00)
[2019-08-12] MEDS: hydrALAZINE INJ 20 MG/ML VIAL IVP PRN ×4 (02:30→19:22)
[2019-08-12] MEDS ORDERED: METOCLOPRAMIDE 10 MG/2 ML VIAL IVP SCH (03:00)
[2019-08-12 05:51] LABS: BASOPHILS % (AUTO) 0.4 %; EOSINOPHILS % (AUTO) 0.3 %; HGB - HEMOGLOBIN 9.4 g/dL (14.0-18.0); LYMPHOCYTES # (AUTO) 1.2 10^3/uL (1.5-3.5); LYMPHOCYTES % (AUTO) 12.7 %; MEAN CORPUSCULAR HEMOGLOBIN 30.2 pg (27.0-31.0); MEAN CORPUSCULAR HGB CONC 34.3 g/dL (32.0-36.0); MEAN CORPUSCULAR VOLUME 88.1 fL (80.0-94.0); MEAN PLATELET VOLUME 9.7 fL (7.4-11.4); MONOCYTES % (AUTO) 9.9 %; NEUTROPHILS # (AUTO) 7.3 10^3/uL (1.5-6.6); NEUTROPHILS % (AUTO) 76.3 %; PLT - PLATELET COUNT 330 10^3/uL (130-450); RED BLOOD COUNT 3.11 10^6/uL (4.70-6.10); RED CELL DISTRIBUTION WIDTH 12.4 % (12.0-15.0); WHITE BLOOD COUNT 9.6 x10^3/uL (4.8-10.8)
[2019-08-12 05:52] LABS: CALCIUM 7.8 mg/dL (8.5-10.3); CREATININE 3.5 mg/dL (0.6-1.2)
[2019-08-12 06:22] LABS: HB2 TOTAL 9.8 g/dL; HEMOGLOBIN A1C 0.67 g/dL; HEMOGLOBIN A1C % 8.4 % (4.6-6.2)
[2019-08-12 06:38] LABS: MUDS CUTOFF CONCENTRATIONS CUTOFF CONC BELOW:
[2019-08-12 06:41] LABS: BILIRUBIN,URINE NEGATIVE (NEGATIVE); GLUCOSE, URINE (UA) 250 mg/dL (NEGATIVE); KETONES,URINE (UA) NEGATIVE (NEGATIVE); LEUKOCYTE ESTERASE, URINE NEGATIVE (NEGATIVE); NITRITE,URINE NEGATIVE (NEGATIVE); OCCULT BLOOD,URINE LARGE (NEGATIVE); PH,URINE 5.5 PH (5.0-7.5); PROTEIN,URINE >=300 mg/dL (NEGATIVE); UROBILINOGEN,URINE 0.2 (NORMAL) E.U./dL (NORMAL)
[2019-08-12 06:42] LABS: CLARITY,URINE CLEAR (CLEAR)
[2019-08-12 06:48] LABS: CREATININE,URINE 147.4 mg/dL
[2019-08-12] MEDS: PANTOPRAZOLE 40 MG TABLET PO SCH (06:57)
[2019-08-12 06:58] LABS: AMPHETAMINE SCREEN,URINE NEGATIVE (NEGATIVE); BENZODIAZEPINES SCREEN, URINE NEGATIVE (NEGATIVE); COCAINE SCREEN URINE NEGATIVE (NEGATIVE); METHADONE SCREEN, URINE NEGATIVE (NEGATIVE); METHAMPHETAMINES SCREEN, URINE NEGATIVE (NEGATIVE); OPIATE SCREEN, URINE POSITIVE (NEGATIVE); OXYCODONE SCREEN, URINE NEGATIVE (NEGATIVE); PROPOXYPHENE SCREEN, URINE NEGATIVE (NEGATIVE); TRICYCLIC ANTIDEPRESSANT,URINE NEGATIVE (NEGATIVE)
[2019-08-12 07:03] LABS: AMORPHOUS SEDIMENT,UR Moderate /LPF; BACTERIA,URINE Many /HPF (None Seen); RBC,URINE 0-5 /HPF (0-5); SQUAMOUS EPITHELIAL CELL,UR FEW Squamous (<= Few); YEAST,URINE PRESENT
[2019-08-12] MEDS ORDERED: cefTRIAXone 1 GM in SODIUM CHLORIDE 0.9% MINIBAG 100 ML IV SCH (08:00)
[2019-08-12] MEDS: POTASSIUM CHLOR 10 MEQ/100 ML 10 MEQ/100 ML BAG IV SCH ×6 (08:05→13:16)
[2019-08-12] MEDS: SODIUM CHLORIDE FLUSH 0.9% 10 ML SYRINGE IVP SCH ×2 (08:07→16:04)
[2019-08-12] MEDS: LABETALOL 20 MG/4 ML SYRINGE IVP PRN ×2 (08:12→12:25)
[2019-08-12] MEDS: cefTRIAXone 1 GM in SODIUM CHLORIDE 0.9% MINIBAG 100 ML IV SCH (08:46)
[2019-08-12] MEDS: HEPARIN 5,000 UNIT/ML VIAL SUBQ SCH ×2 (08:51→22:50)
[2019-08-12] MEDS: METOPROLOL SUCCINATE 50 MG TABLET PO SCH (08:56)
[2019-08-12] MEDS ORDERED: cefTRIAXone 2 GM in SODIUM CHLORIDE 0.9% MINIBAG 100 ML IV SCH (09:00)
[2019-08-12] MEDS: METOCLOPRAMIDE 10 MG/2 ML VIAL IVP SCH ×3 (09:01→22:49)
--- NOTE | 2019-08-12 09:35 | Ultrasound Report ---
Reason: acute kidney injury Procedure Date: 08/12/2019 Accession Number: [id number] / [id number] Procedure: US - Arterial Visceral Complete CPT Code: Final Report FULL RESULT: EXAM: RENAL ARTERY DOPPLER ULTRASOUND EXAM DATE: 08/12/2019 08:09 AM. CLINICAL HISTORY: Acute kidney injury. COMPARISON: ABDOMEN/PELVIS W/O 08/10/2019 10:01 AM. TECHNIQUE: Real-time sonographic vascular imaging was performed by the paper folding machine operator through the renal arterial system with a linear transducer utilizing color-flow, Doppler flow, and spectral analysis. Multiple media sales representative static images were saved for review. FINDINGS: Right Kidney: 13.1 x 7.4 x 6.1 cm. Echotexture is within normal limits. There is trace fluid within the renal collecting system, within normal limits. Right Segmental Artery: Upper pole: PSV 49.1 cm/sec, RI 0.7. Mid pole: PSV 50.4 cm/sec, RI 0.8. Lower pole: PSV 49.5 cm/sec, RI 0.8. Right Renal Artery: Origin: PSV 121.8 cm/sec, RA/AO 0.9. Proximal: PSV 137.9 cm/sec, RA/AO 1.1. Mid: PSV 75.2 cm/sec, RA/AO 0.6. Distal: PSV 73.1 cm/sec, RA/AO 0.6. Aorta PSV: 131.2 cm/sec. RRV Patent: Yes. Left Kidney: 13.0 x 4.7 x 5.7 cm. There is a simple cortical cyst at the inferior pole of the left kidney measuring 1.1 x 0.7 x 1.0 cm. No imaging follow-up is recommended per consensus recommendations based on imaging criteria. Cortical echotexture is otherwise within normal limits. There is trace fluid in the renal collecting system, within normal limits. Left Segmental Artery: Upper pole: PSV 22.7 cm/sec, RI 0.7. Mid pole: PSV 34.9 cm/sec, RI 0.8. Lower pole: PSV 35.8 cm/sec, RI 0.8. Left Renal Artery: Origin: PSV 126 cm/sec, RA/AO 1.0. Proximal: PSV 158.1 cm/sec, RA/AO 1.2. Mid: PSV 152.4 cm/sec, RA/AO 1.2. Distal: PSV 135.2 cm/sec, RA/AO 1.0. LRV Patent: Yes. IMPRESSION: 1. No evidence of renal artery stenosis bilaterally. 2. No hydronephrosis bilaterally. CRITERIA FOR CLASSIFICATION OF RENAL ARTERY (RA) DISEASE BY DUPLEX SCANNING: RA Diameter Reduction/ RA PSV/ RAR: Normal, < 180 cm/sec, < 3.5 < 60%, >= 180 cm/sec, < 3.5 >= 60%, >= 180 cm/sec, >= 3.5 Total Occlusion: Undetectable; Not applicable RADIA
--- NOTE | 2019-08-12 10:00 | PHARMACY PROGRESS NOTE ---
- Best Possible Medication History Admit Date and Time: 08/12/19 0115 Processed by: Pharmacy Medication History completed: Yes Patient Interview: Completed Secondary Source(s): Pharmacy records, Insurance records (PATIENT DOES NOT KNOW DAILY INSULIN DOSE VIA CONTINUOUS PUMP) As the person ultimately responsible for medication therapy, providers are able to order a medication from an existing home medication list in [facility] via the "Reconcile Routine" prior to Confirmation of that medication by endoscopy support specialist. Such practice is discouraged except when the physician, in their clinical judgment, deems that a medical need exists for a medication without regard to previous use.
[2019-08-12] MEDS: SODIUM CHLORIDE 0.9% 1,000 ML IV SCH ×3 (10:18→22:53)
[2019-08-12] MEDS ORDERED: LIDOCAINE 2% URO-JET 5 ML SYRINGE UR SCH (14:59)
[2019-08-13] MEDS: SODIUM CHLORIDE FLUSH 0.9% 10 ML SYRINGE IVP SCH ×3 (00:46→15:58)
[2019-08-13] MEDS: MORPHINE 2 MG/ML CARPUJECT IVP PRN ×5 (00:53→19:00)
[2019-08-13] MEDS ORDERED: LIDOCAINE 2% URO-JET 5 ML SYRINGE UR ONE (00:53)
[2019-08-13] MEDS: LABETALOL 20 MG/4 ML SYRINGE IVP PRN ×2 (00:57→20:15)
[2019-08-13] MEDS: METOCLOPRAMIDE 10 MG/2 ML VIAL IVP SCH ×4 (03:44→21:30)
[2019-08-13] MEDS: SODIUM CHLORIDE 0.9% 1,000 ML IV SCH ×3 (03:44→17:00)
[2019-08-13 05:57] LABS: BASOPHILS % (AUTO) 0.4 %; EOSINOPHILS # (AUTO) 0.2 10^3/uL (0.0-0.7); EOSINOPHILS % (AUTO) 2.3 %; LYMPHOCYTES # (AUTO) 1.8 10^3/uL (1.5-3.5); LYMPHOCYTES % (AUTO) 23.5 %; MEAN CORPUSCULAR HGB CONC 32.7 g/dL (32.0-36.0); MEAN CORPUSCULAR VOLUME 88.7 fL (80.0-94.0); MEAN PLATELET VOLUME 9.5 fL (7.4-11.4); MONOCYTES # (AUTO) 0.8 10^3/uL (0.0-1.0); MONOCYTES % (AUTO) 10.8 %; NEUTROPHILS # (AUTO) 4.7 10^3/uL (1.5-6.6); NEUTROPHILS % (AUTO) 62.7 %; PLT - PLATELET COUNT 305 10^3/uL (130-450); RED CELL DISTRIBUTION WIDTH 12.6 % (12.0-15.0); WHITE BLOOD COUNT 7.4 x10^3/uL (4.8-10.8)
[2019-08-13 06:05] LABS: CALCIUM 7.6 mg/dL (8.5-10.3); CREATININE 3.7 mg/dL (0.6-1.2)
[2019-08-13 06:11] LABS: CHOLESTEROL 166 mg/dL; HDL CHOLESTEROL 42 mg/dL; LDL CHOLESTEROL,CALCULATED 100 mg/dL; LDL/HDL RATIO 2.4 (<3.6); VLDL CHOLESTEROL 24 mg/dL
[2019-08-13] MEDS: PANTOPRAZOLE 40 MG TABLET PO SCH (06:58)
[2019-08-13] MEDS ORDERED: SODIUM CHLORIDE 0.9% 1,000 ML IV SCH (07:00)
[2019-08-13] MEDS ORDERED: POTASSIUM CHLORIDE 20 MEQ TABLET PO ONE (07:05)
[2019-08-13] MEDS: METOPROLOL SUCCINATE 50 MG TABLET PO SCH (08:23)
[2019-08-13] MEDS: DOCUSATE SODIUM 250 MG CAPSULE PO SCH (08:23)
[2019-08-13] MEDS: HEPARIN 5,000 UNIT/ML VIAL SUBQ SCH ×2 (08:25→20:16)
[2019-08-13] MEDS: cefTRIAXone 1 GM in SODIUM CHLORIDE 0.9% MINIBAG 100 ML IV SCH (08:26)
[2019-08-13] MEDS: polyethylene glycoL 3350 17 GM PACKET PO SCH (08:26)
[2019-08-13] MEDS: hydrALAZINE INJ 20 MG/ML VIAL IVP PRN (17:06)
[2019-08-13] MEDS: SODIUM CHLORIDE FLUSH 0.9% 10 ML SYRINGE IVP PRN (17:08)
--- NOTE | 2019-08-13 22:19 | PROVIDER PROGRESS NOTE ---
Assessment/Plan - Problem List (1) Hypertensive urgency Assessment/Plan: Patient on metoprolol succinate 50 mg p.o. daily. Hydralazine 10 mg IV every 4 hours as needed for systolic blood pressure greater than 160. Labetalol 20 mg IV every 4 hours as needed for systolic blood pressure greater than 160 (2) Acute kidney injury Assessment/Plan: On chronic kidney disease. Patient's renal function today appeared worse and then the previous day. GFR was 22 with creatinine of 3.7. I also suspect nephrotic syndrome. The acute aspect of patient's kidney disease is likely multifactorial. Secondary to possibly rhabdomyolysis and UTI Patient has been on Rocephin 1 g IV daily and has been receiving IV hydration with normal saline. HCTZ/lisinopril held CK has improved from 900 to 400 Chronic kidney disease likely secondary to uncontrolled hypertension and diabetes mellitus. Packing And Wrapping Supervisor is Dr. Teresa Mark at [facility] in [place]. Attempts at reaching Dr. Mark have been unsuccessful. Consequently a voice message was left. Patient last saw nephrology 3 months ago. I discussed with him the likelihood of undergoing kidney biopsy. The patient did not appear surprised by this information. 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 There is an increased probability patient will likely need dialysis in the future. I will attempt to reach the patient's primary care physician Dr. So Suggs in the morning. A 24-hour urine protein is in process. (3) Insulin dependent diabetes mellitus Assessment/Plan: Patient managing his insulin pump. His hemoglobin A1c was 8.4 (4) Abdominal pain Qualifiers: Abdominal location: left upper quadrant Qualified Code(s): R10.12 - Left upper quadrant pain Assessment/Plan: Patient reported improvement in abdominal pain. He was able to tolerate his meals earlier in the day. However he declined dinner today. We would switch his pain regimen to oral medications in anticipation of discharge (6) GERD (gastroesophageal reflux disease) Assessment/Plan: Pantoprazole 40mg po daily (7) Urinary retention Assessment/Plan: Patient had a Og catheter placed earlier in the morning. We will discontinue Og catheter after 24 hours to see if patient would be able to void on his own. Will resume patient's prazosin 2 mg p.o. daily (8) PTSD (post-traumatic stress disorder) Assessment/Plan: Patient on prazosin 2 mg p.o. daily - Current Meds Current Meds: Current Medications Generic Name Dose Route Start Last Admin Trade Name Freq PRN Reason Stop Dose Admin Docusate Sodium 250 - 500 mg 08/13/19 09:00 08/13/19 08:23 Colace 250mg Capsule PO 500 mg DAILY LAUREN Administration Heparin Sodium (Porcine) 5,000 unit 08/12/19 09:00 08/13/19 20:16 SUBQ 5,000 unit BID LAUREN Administration Hydralazine HCl 10 mg 08/12/19 01:24 08/13/19 17:06 Apresoline Inj IVP 10 mg Q4H PRN Administration PER PHYSICIAN ORDER Ceftriaxone Sodium 1 gm/ 100 mls @ 200 mls/hr 08/12/19 09:00 08/13/19 09:40 Sodium Chloride IV Infused DAILY LAUREN Infusion Sodium Chloride 1,000 mls @ 125 mls/hr 08/13/19 07:04 08/13/19 17:00 Normal Saline 0.9% IV 125 mls/hr .Q8H LAUREN Administration Labetalol HCl 20 mg 08/12/19 01:21 08/13/19 20:15 Trandate Syringe IVP 20 mg Q4H PRN Administration PER PHYSICIAN ORDER Metoclopramide HCl 5 mg 08/12/19 09:00 08/13/19 21:30 Reglan Inj IVP Not Given Q6H LAUREN Metoprolol Succinate 50 mg 08/12/19 09:00 08/13/19 08:23 Toprol Xl PO 50 mg DAILY LAUREN Administration Morphine Sulfate 2 mg 08/12/19 01:15 08/13/19 19:00 Morphine (Carpuject) IVP 2 mg Q2HR PRN Administration Pain 8 to 10 Ondansetron HCl 4 mg 08/12/19 01:15 08/13/19 05:18 Zofran Inj IVP 4 mg Q6HR PRN Administration Nausea / Vomiting Pantoprazole Sodium 40 mg 08/12/19 07:00 08/13/19 06:58 Protonix PO 40 mg QDAC LAUREN Administration Polyethylene Glycol 17 gm 08/13/19 09:00 08/13/19 08:26 Miralax PO 17 gm DAILY LAUREN Administration Sodium Chloride 10 ml 08/12/19 01:15 08/13/19 17:08 Normal Saline Flush 0.9% IVP 10 ml PRN PRN Administration NEEDED PER PROVIDER ORDERS Sodium Chloride 10 ml 08/12/19 09:00 08/13/19 15:58 Normal Saline Flush 0.9% IVP 10 ml 0100,0900,1700 LAUREN Administration - Lab Result Fish Bone Diagrams: 08/13/19 05:20 08/13/19 05:20 - Additional Planning Condition/Complexity: Stable My Orders: My Active Orders 08/13/19 00:52 Og Insertion [RC] QSHIFT 08/13/19 01:00 URINE PROTEIN 24 HR [UC] Routine 08/13/19 07:00 Echo Transthoracic Complete [ECHO] Routine 08/13/19 07:04 Sodium Chloride 0.9% [Normal Saline 0.9%] 1,000 ml IV 125 mls/hr 08/13/19 07:39 CREATININE,URINE [UC] Routine TOTAL PROTEIN,URINE RANDOM [UC] Routine 08/13/19 Lunch Carb-controlled Diet [DIET] 08/14/19 05:00 BMP - BASIC METABOLIC PANEL [CHEM] DAILYLAB CBC - COMP BLD CT W/AUTO DIFF [HEME] DAILYLAB CK- CREATINE KINASE [CHEM] DAILYLAB 08/15/19 05:00 BMP - BASIC METABOLIC PANEL [CHEM] DAILYLAB CBC - COMP BLD CT W/AUTO DIFF [HEME] DAILYLAB CK- CREATINE KINASE [CHEM] DAILYLAB 08/16/19 05:00 BMP - BASIC METABOLIC PANEL [CHEM] DAILYLAB CBC - COMP BLD CT W/AUTO DIFF [HEME] DAILYLAB Time Spent: 15-30 minutes Subjective - Subjective Patient Reports: Other (Patient seen and examined this evening. He was more alert at this visit than the last one. He reported improvement in his abdominal pain however some pain still persists. He was able to tolerate his diet. He denied chest pain, dyspnea, nausea, vomiting, fever or chills.) Objective Vital Signs: Vital Signs - 24 hr 08/13/19 08/13/19 08/13/19 00:00 01:02 01:07 Temperature 37.0 C Heart Rate [ 96 94 92 Brachial] Respiratory 20 Rate Blood Pressure Blood Pressure 184/96 H 175/95 H 176/91 H [Left Brachial artery] O2 Saturation 96 08/13/19 08/13/19 08/13/19 01:12 01:17 01:30 Temperature Heart Rate [ 91 92 93 Brachial] Respiratory Rate Blood Pressure Blood Pressure 171/91 H 168/90 H 167/93 H [Left Brachial artery] O2 Saturation 08/13/19 08/13/19 08/13/19 01:45 02:00 05:00 Temperature 37.1 C Heart Rate [ 92 92 96 Brachial] Respiratory 20 Rate Blood Pressure Blood Pressure 166/89 H 155/84 H 193/98 H [Left Brachial artery] O2 Saturation 98 08/13/19 08/13/19 08/13/19 06:36 06:59 07:25 Temperature 37.1 C Heart Rate [ 93 92 93 Brachial] Respiratory 18 Rate Blood Pressure Blood Pressure 170/90 H 154/88 H 161/88 H [Left Brachial artery] O2 Saturation 97 08/13/19 08/13/19 08/13/19 11:15 15:50 17:03 Temperature 36.8 C 37.2 C Heart Rate [ 88 90 90 Brachial] Respiratory 18 16 16 Rate Blood Pressure Blood Pressure 167/88 H 181/94 H 179/97 H [Left Brachial artery] O2 Saturation 94 96 08/13/19 08/13/19 08/13/19 17:06 17:11 17:16 Temperature Heart Rate [ 91 90 Brachial] Respiratory Rate Blood Pressure 179/97 H Blood Pressure 175/93 H 160/85 H [Left Brachial artery] O2 Saturation 08/13/19 08/13/19 08/13/19 17:30 17:36 17:45 Temperature Heart Rate [ 89 91 Brachial] Respiratory Rate Blood Pressure 179/91 H Blood Pressure 153/84 H 169/90 H [Left Brachial artery] O2 Saturation 08/13/19 08/13/19 08/13/19 18:00 20:08 20:21 Temperature 37.0 C Heart Rate [ 90 88 89 Brachial] Respiratory 17 Rate Blood Pressure Blood Pressure 169/91 H 168/84 H 172/88 H [Left Brachial artery] O2 Saturation 95 08/13/19 08/13/19 08/13/19 20:26 20:31 20:36 Temperature Heart Rate [ 92 92 91 Brachial] Respiratory Rate Blood Pressure Blood Pressure 161/86 H 166/84 H 158/84 H [Left Brachial artery] O2 Saturation 08/13/19 08/13/19 20:51 21:10 Temperature Heart Rate [ 90 92 Brachial] Respiratory Rate Blood Pressure Blood Pressure 165/81 H 157/81 H [Left Brachial artery] O2 Saturation Oxygen O2 Source Room air I&O (Last 24 Hrs): Intake and Output Totals x24h 08/11/19 08/12/19 08/13/19 23:59 23:59 23:59 Intake Total 5535.000 5043.75 Output Total 815 2945 Balance 4720.000 2098.75 General: Alert, Oriented x3, Mild distress, Moderate distress HEENT: Atraumatic, PERRLA, EOMI Neck: Supple, No JVD Neuro: Alert, Non Focal, Oriented Times 3 Cardiovascular: Regular rate, No murmurs Respiratory: Chest non-tender, No respiratory distress, Breath sounds nml Abdomen: Normal bowel sounds, Soft, No masses Extremities: No clubbing, No cyanosis, No edema Skin: No rashes - Results Results: Laboratory Results WBC 7.4 x10^3/uL (4.8-10.8) 08/13/19 05:20 RBC 3.10 10^6/uL (4.70-6.10) L 08/13/19 05:20 Hgb 9.0 g/dL (14.0-18.0) L 08/13/19 05:20 Hct 27.5 % (42.0-52.0) L 08/13/19 05:20 MCV 88.7 fL (80.0-94.0) 08/13/19 05:20 MCH 29.0 pg (27.0-31.0) 08/13/19 05:20 MCHC 32.7 g/dL (32.0-36.0) 08/13/19 05:20 RDW 12.6 % (12.0-15.0) 08/13/19 05:20 Plt Count 305 10^3/uL (130-450) 08/13/19 05:20 MPV 9.5 fL (7.4-11.4) 08/13/19 05:20 Neut # (Auto) 4.7 10^3/uL (1.5-6.6) 08/13/19 05:20 Lymph # (Auto) 1.8 10^3/uL (1.5-3.5) 08/13/19 05:20 Tripp # (Auto) 0.8 10^3/uL (0.0-1.0) 08/13/19 05:20 Eos # (Auto) 0.2 10^3/uL (0.0-0.7) 08/13/19 05:20 Baso # (Auto) 0.0 10^3/uL (0.0-0.1) 08/13/19 05:20 Absolute Nucleated RBC 0.00 x10^3/uL 08/13/19 05:20 Nucleated RBC % 0.0 /100WBC 08/13/19 05:20 PT 13.2 secs (9.9-12.6) H 08/11/19 23:55 INR 1.2 (0.8-1.2) 08/11/19 23:55 APTT 25.8 secs (24.9-33.3) 08/11/19 23:55 VBG pH 7.386 (7.31-7.41) 08/11/19 23:55 VBG pCO2 41.2 mmHg (41-51) 08/11/19 23:55 VBG pO2 66.8 mmHg (25-47) H 08/11/19 23:55 VBG HCO3 24.2 mmol/L (23-28) 08/11/19 23:55 VBG Total CO2 25.4 mmol/L (24-29) 08/11/19 23:55 VBG O2 Saturation 92.6 % (60-80) H 08/11/19 23:55 VBG Base Excess -0.8 mmol/L (-2 - +2) 08/11/19 23:55 Sodium 135 mmol/L (135-145) 08/13/19 05:20 Potassium 3.4 mmol/L (3.5-5.0) L 08/13/19 05:20 Chloride 107 mmol/L (101-111) 08/13/19 05:20 Carbon Dioxide 20 mmol/L (21-32) L 08/13/19 05:20 Anion Gap 8.0 (6-13) 08/13/19 05:20 BUN 44 mg/dL (6-20) H 08/13/19 05:20 Creatinine 3.7 mg/dL (0.6-1.2) H 08/13/19 05:20 Estimated GFR (MDRD) 22 (>89) L 08/13/19 05:20 Glucose 156 mg/dL (70-100) H 08/13/19 05:20 POC Whole Bld Glucose 126 mg/dL (70 - 100) H 08/13/19 22:06 Glycated Hemoglobin 8.4 % (4.6-6.2) H 08/12/19 04:25 Estim Average Glucose 194 (70-100) H 08/12/19 04:25 Lactic Acid 1.2 mmol/L (0.5-2.2) 08/11/19 23:55 Calcium 7.6 mg/dL (8.5-10.3) L 08/13/19 05:20 Phosphorus 4.8 mg/dL (2.5-4.6) H 08/11/19 23:55 Magnesium 1.7 mg/dL (1.7-2.8) 08/11/19 23:55 Total Bilirubin 1.0 mg/dL (0.2-1.0) 08/11/19 23:55 AST 29 IU/L (10-42) 08/11/19 23:55 ALT 18 IU/L (10-60) 08/11/19 23:55 Alkaline Phosphatase 64 IU/L (42-121) 08/11/19 23:55 Total Creatine Kinase 483 IU/L (22-269) H 08/13/19 05:20 Troponin I High Sens 45.3 ng/L (2.3-19.7) H* 08/12/19 10:25 B-Natriuretic Peptide 272 pg/mL (5-100) H 08/11/19 23:55 Total Protein 7.0 g/dL (6.7-8.2) 08/11/19 23:55 Albumin 3.0 g/dL (3.2-5.5) L 08/11/19 23:55 Globulin 4.0 g/dL (2.1-4.2) 08/11/19 23:55 Albumin/Globulin Ratio 0.8 (1.0-2.2) L 08/11/19 23:55 Triglycerides 122 mg/dL (-149) 08/13/19 05:20 Cholesterol 166 mg/dL (-199) 08/13/19 05:20 LDL Cholesterol, Calc 100 mg/dL (-129) 08/13/19 05:20 VLDL Cholesterol 24 mg/dL 08/13/19 05:20 HDL Cholesterol 42 mg/dL (60-) L 08/13/19 05: LDL/HDL Ratio 2.4 (<3.6) 08/13/19 05: Cholesterol/HDL Ratio 4.0 (<5.0) 08/13/19 05: Lipase 19 U/L (22-51) L 08/11/19 23:55 TSH 1.76 uIU/mL (0.34-5.60) 08/11/19 23:55 Urine Color YELLOW 08/12/19 06:30 Urine Clarity CLEAR (CLEAR) 08/12/19 06:30 Urine pH 5.5 PH (5.0-7.5) 08/12/19 06:30 Ur Specific [place] 1.025 (1.002-1.030) 08/12/19 06:30 Urine Protein >=300 mg/dL (NEGATIVE) H 08/12/19 06:30 Urine Glucose (UA) 250 mg/dL (NEGATIVE) H 08/12/19 06:30 Urine Ketones NEGATIVE mg/dL (NEGATIVE) 08/12/19 06:30 Urine Occult Blood LARGE (NEGATIVE) H 08/12/19 06:30 Urine Nitrite NEGATIVE (NEGATIVE) 08/12/19 06:30 Urine Bilirubin NEGATIVE (NEGATIVE) 08/12/19 06:30 Urine Urobilinogen 0.2 (NORMAL) E.U./dL (NORMAL) 08/12/19 06:30 Ur Leukocyte Esterase NEGATIVE (NEGATIVE) 08/12/19 06:30 Urine RBC 0-5 /HPF (0-5) 08/12/19 06:30 Urine WBC 6-10 /HPF (0-3) H 08/12/19 06:30 Ur Squamous Epith Cells FEW Squamous (<= Few) 08/12/19 06:30 Amorphous Sediment Moderate /LPF 08/12/19 06:30 Urine Bacteria Many /HPF (None Seen) H 08/12/19 06:30 Urine Casts 26-50 Hyaline Casts /[id number] Granular Casts /LPF0-2 Cellular Casts /LPF 08/12/19 06:30 Urine Casts 26-50 Hyaline Casts /[id number] Granular Casts /LPF0-2 Cellular Casts /LPF 08/12/19 06:30 Urine Casts 26-50 Hyaline Casts /[id number] Granular Casts /LPF0-2 Cellular Casts /LPF 08/12/19 06:30 Urine Yeast PRESENT 08/12/19 06:30 Ur Microscopic Review INDICATED 08/12/19 06:30 Urine Culture Comments INDICATED 08/12/19 06:30 Urine Creatinine 147.4 mg/dL 08/12/19 06:30 Urine Sodium 47.0 mmol/L 08/12/19 06:30 Urine Opiates Screen POSITIVE (NEGATIVE) H 08/12/19 06:30 Ur Oxycodone Screen NEGATIVE (NEGATIVE) 08/12/19 06:30 Urine Methadone Screen NEGATIVE (NEGATIVE) 08/12/19 06:30 Ur Propoxyphene Screen NEGATIVE (NEGATIVE) 08/12/19 06:30 Ur Barbiturates Screen NEGATIVE (NEGATIVE) 08/12/19 06:30 Ur Tricyclics Screen NEGATIVE (NEGATIVE) 08/12/19 06:30 Ur Phencyclidine Scrn NEGATIVE (NEGATIVE) 08/12/19 06:30 Ur Amphetamine Screen NEGATIVE (NEGATIVE) 08/12/19 06:30 U Methamphetamines Scrn NEGATIVE (NEGATIVE) 08/12/19 06:30 U Benzodiazepines Scrn NEGATIVE (NEGATIVE) 08/12/19 06:30 Urine Cocaine Screen NEGATIVE (NEGATIVE) 08/12/19 06:30 U Cannabinoids Screen NEGATIVE (NEGATIVE) 08/12/19 06:30 Ethyl Alcohol < 5.0 mg/dL 08/11/19 23:55 Serum Ketones NEGATIVE (NEGATIVE) 08/11/19 23:55 ABX Reporting Has patient been on IV antibiotics over the past 48 hours?: Yes
[2019-08-13] MEDS ORDERED: MORPHINE 2 MG/ML CARPUJECT IVP PRN (22:39)
[2019-08-13] MEDS ORDERED: HYDROcod/ACETAM 5/325 MG TABLET PO PRN (22:39)
[2019-08-14] MEDS: SODIUM CHLORIDE FLUSH 0.9% 10 ML SYRINGE IVP SCH ×3 (00:52→17:25)
[2019-08-14] MEDS: SODIUM CHLORIDE 0.9% 1,000 ML IV SCH (00:53)
[2019-08-14] MEDS: PRAZOSIN 1 MG CAPSULE PO SCH ×2 (02:13→21:15)
[2019-08-14] MEDS: METOCLOPRAMIDE 10 MG/2 ML VIAL IVP SCH (02:31)
[2019-08-14 03:10] LABS: TOTAL PROTEIN 24HR,URINE 12975 mg/24hr (40-150); TOTAL PROTEIN,URINE TIMED 519 mg/dL; TOTAL VOLUME 24HRS,URINE 2500 mL
[2019-08-14] MEDS: LABETALOL 20 MG/4 ML SYRINGE IVP PRN (05:53)
[2019-08-14 06:15] LABS: CREATININE,URINE 91.7 mg/dL
[2019-08-14] MEDS: PANTOPRAZOLE 40 MG TABLET PO SCH (06:18)
[2019-08-14 06:24] LABS: BASOPHILS % (AUTO) 0.4 %; EOSINOPHILS # (AUTO) 0.3 10^3/uL (0.0-0.7); EOSINOPHILS % (AUTO) 5.5 %; HGB - HEMOGLOBIN 8.6 g/dL (14.0-18.0); LYMPHOCYTES # (AUTO) 1.4 10^3/uL (1.5-3.5); LYMPHOCYTES % (AUTO) 26.4 %; MEAN CORPUSCULAR HEMOGLOBIN 30.1 pg (27.0-31.0); MEAN CORPUSCULAR HGB CONC 33.1 g/dL (32.0-36.0); MEAN CORPUSCULAR VOLUME 90.9 fL (80.0-94.0); MEAN PLATELET VOLUME 9.4 fL (7.4-11.4); MONOCYTES # (AUTO) 0.6 10^3/uL (0.0-1.0); NEUTROPHILS # (AUTO) 3.1 10^3/uL (1.5-6.6); NEUTROPHILS % (AUTO) 56.5 %; PLT - PLATELET COUNT 278 10^3/uL (130-450); RED BLOOD COUNT 2.86 10^6/uL (4.70-6.10); RED CELL DISTRIBUTION WIDTH 12.6 % (12.0-15.0); WHITE BLOOD COUNT 5.5 x10^3/uL (4.8-10.8)
[2019-08-14] MEDS: polyethylene glycoL 3350 17 GM PACKET PO SCH (06:24)
[2019-08-14 06:38] LABS: CALCIUM 7.7 mg/dL (8.5-10.3); CREATININE 3.4 mg/dL (0.6-1.2)
[2019-08-14 08:58] LABS: % IRON SATURATION 26 % (20-50); IRON 38 ug/dL (45-182); TOTAL IRON BINDING CAPACITY 147 ug/dL (250-450); TRANSFERRIN 105 mg/dL (180-329)
[2019-08-14] MEDS ORDERED: amLODIPine 5 MG TABLET PO SCH ×2 (09:00→21:00)
[2019-08-14] MEDS: cefTRIAXone 1 GM in SODIUM CHLORIDE 0.9% MINIBAG 100 ML IV SCH (09:00)
[2019-08-14] MEDS: hydrALAZINE 25 MG TABLET PO SCH ×3 (09:00→21:16)
[2019-08-14] MEDS: HEPARIN 5,000 UNIT/ML VIAL SUBQ SCH ×2 (09:01→21:16)
[2019-08-14] MEDS: METOPROLOL SUCCINATE 50 MG TABLET PO SCH (09:01)
[2019-08-14] MEDS: DOCUSATE SODIUM 250 MG CAPSULE PO SCH (09:01)
[2019-08-14] MEDS: FERROUS SULFATE 325 MG TABLET PO SCH ×2 (10:54→17:24)
--- NOTE | 2019-08-14 11:51 | PROVIDER PROGRESS NOTE ---
Subjective - Prog Note Date Prog Note Date: 08/14/19 - Subjective Subjective: Reports feeling better today. Still has some nausea and occasional abdominal pain but no more vomiting. He has been tolerating a diet. Current Medications - Current Medications Current Medications: Active Medications Hydrocodone Bitart/Acetaminophen ([place] 5/325) 1 tab PO Q4HR PRN PRN Reason: PAIN Last Admin: 08/14/19 06:18 Dose: 1 tab Amlodipine Besylate (Norvasc) 5 mg PO ONCE [facility] Stop: 08/14/19 22:00 Amlodipine Besylate (Norvasc) 10 mg PO QPM [facility] Cefuroxime Axetil (Ceftin) 250 mg PO BID [facility] Docusate Sodium (Colace 250mg Capsule) 250 - 500 mg PO DAILY [facility] Last Admin: 08/14/19 09:01 Dose: 250 mg Ferrous Sulfate (Feosol) 325 mg PO BIDWM [facility] Last Admin: 08/14/19 10:54 Dose: 325 mg Heparin Sodium (Porcine) () 5,000 unit SUBQ BID [facility] Last Admin: 08/14/19 09:01 Dose: 5,000 unit Hydralazine HCl (Apresoline) 25 mg PO TID [facility] Last Admin: 08/14/19 09:00 Dose: 25 mg Metoprolol Succinate (Toprol Xl) 50 mg PO DAILY [facility] Last Admin: 08/14/19 09:01 Dose: 50 mg Morphine Sulfate (Morphine (Carpuject)) 2 mg IVP Q6HR PRN PRN Reason: Pain 8 to 10 Ondansetron HCl (Zofran Inj) 4 mg IVP Q6HR PRN PRN Reason: Nausea / Vomiting Last Admin: 08/13/19 05:18 Dose: 4 mg Pantoprazole Sodium (Protonix) 40 mg PO QDAC [facility] Last Admin: 08/14/19 06:18 Dose: 40 mg Polyethylene Glycol (Miralax) 17 gm PO DAILY [facility] Last Admin: 08/14/19 06:24 Dose: 17 gm Prazosin HCl (Minipress) 2 mg PO QPM [facility] Last Admin: 08/14/19 02:13 Dose: 2 mg Senna (Senokot) 8.6 - 17.2 mg PO DAILY [facility] Sodium Chloride (Normal Saline Flush 0.9%) 10 ml IVP PRN PRN PRN Reason: NEEDED PER PROVIDER ORDERS Last Admin: 08/13/19 17:08 Dose: 10 ml Sodium Chloride (Normal Saline Flush 0.9%) 10 ml IVP 0100,0900,1700 LAUREN Last Admin: 08/14/19 09:01 Dose: 10 ml Insulin Aspart [Novolog] .CONTINUOUS PUMP 08/12/19 Promethazine HCl 25 mg PO Q6H PRN 08/12/19 Promethazine Supp [Phenergan Supp] [address] [id number] 08/12/19 Objective - Vital Signs/Intake & Output Reviewed Vital Signs: Yes Vital Signs: Vital Signs x48h Temp Pulse Resp BP Pulse Ox 08/14/19 11:05 36.8 C 89 18 164/89 H 100 08/14/19 08:00 158/85 H 08/14/19 07:43 37.0 C 93 18 165/80 H 95 08/14/19 07:15 182/91 H 08/14/19 07:03 172/94 H 08/14/19 06:46 89 182/94 H 08/14/19 06:23 182/96 H 08/14/19 06:19 171/93 H 08/14/19 06:15 90 183/91 H 08/14/19 06:10 185/93 H 08/14/19 06:08 185/92 H 08/14/19 06:00 178/87 H 08/14/19 05:47 37.0 C 91 17 188/94 H 96 08/14/19 05:30 37.5 C 92 18 179/88 H 92 Intake & Output: Intake & Output 08/11/19 08/12/19 08/13/19 08/14/19 23:59 23:59 23:59 23:59 Intake Total 5535.000 5043.75 2216.417 Output Total 815 2945 800 Balance 4720.000 2098.75 1416.417 - Objective General Appearance: positive: No acute distress, Alert Eyes Bilateral: positive: Normal inspection ENT: positive: ENT inspection nml Neck: positive: Nml inspection Respiratory: positive: No respiratory distress. negative: Wheezes, Rales, Rhonchi Cardiovascular: positive: Regular rate & rhythm, No murmur. negative: Tachycardia, Bradycardia Abdomen: positive: Nml bowel sounds, No distention, Tenderness (Mild tenderness in the right periumbilical region). negative: Non-tender, Guarding, Rebound Skin: positive: No rash, Warm, Dry Extremities: positive: Full ROM, Pedal edema (Trace pitting edema in bilateral lower extremities) Neurologic/Psychiatric: positive: Oriented x3, Motor nml, Sensation nml. negative: Disoriented to person, Disoriented to place, Disoriented to time - Lab Results Fish Bones: 08/14/19 06:05 08/14/19 06:05 Other Labs: Lab Results x24hrs 08/14/19 08/14/19 08/14/19 Range/Units 11:08 08:03 08:03 WBC (4.8-10.8) x10^3/uL RBC (4.70-6.10) 10^6/uL Hgb (14.0-18.0) g/dL Hct (42.0-52.0) % MCV (80.0-94.0) fL MCH (27.0-31.0) pg MCHC (32.0-36.0) g/dL RDW (12.0-15.0) % Plt Count (130-450) 10^3/uL MPV (7.4-11.4) fL Neut # (Auto) (1.5-6.6) 10^3/uL Lymph # (Auto) (1.5-3.5) 10^3/uL [place] # (Auto) (0.0-1.0) 10^3/uL Eos # (Auto) (0.0-0.7) 10^3/uL Baso # (Auto) (0.0-0.1) 10^3/uL Absolute Nucleated RBC x10^3/uL Nucleated RBC % /100WBC Sodium (135-145) mmol/L Potassium (3.5-5.0) mmol/L Chloride (101-111) mmol/L Carbon Dioxide (21-32) mmol/L Anion Gap (6-13) BUN (6-20) mg/dL Creatinine (0.6-1.2) mg/dL Estimated GFR (MDRD) (>89) Glucose (70-100) mg/dL POC Whole Bld Glucose 160 H (70 - 100) mg/dL Calcium (8.5-10.3) mg/dL Iron 38 L (45-182) ug/dL TIBC 147 L (250-450) ug/dL % Saturation 26 (20-50) % Transferrin 105 L (180-329) mg/dL Ferritin 162.5 (23.9-336.2) ng/mL Total Creatine Kinase (22-269) IU/L U Random Total Protein mg/dL Ur 24 Hour Volume mL Urine Creatinine mg/dL Ur Total Protein 24 Hr (40-150) mg/24hr Ur Total Protein Timed mg/dL 08/14/19 08/14/19 08/14/19 Range/Units 07:37 06:05 06:05 WBC 5.5 (4.8-10.8) x10^3/uL RBC 2.86 L (4.70-6.10) 10^6/uL Hgb 8.6 L (14.0-18.0) g/dL Hct 26.0 L (42.0-52.0) % MCV 90.9 (80.0-94.0) fL MCH 30.1 (27.0-31.0) pg MCHC 33.1 (32.0-36.0) g/dL RDW 12.6 (12.0-15.0) % Plt Count 278 (130-450) 10^3/uL MPV 9.4 (7.4-11.4) fL Neut # (Auto) 3.1 (1.5-6.6) 10^3/uL Lymph # (Auto) 1.4 L (1.5-3.5) 10^3/uL [place] # (Auto) 0.6 (0.0-1.0) 10^3/uL Eos # (Auto) 0.3 (0.0-0.7) 10^3/uL Baso # (Auto) 0.0 (0.0-0.1) 10^3/uL Absolute Nucleated RBC 0.00 x10^3/uL Nucleated RBC % 0.0 /100WBC Sodium 137 (135-145) mmol/L Potassium 3.6 (3.5-5.0) mmol/L Chloride 110 (101-111) mmol/L Carbon Dioxide 19 L (21-32) mmol/L Anion Gap 8.0 (6-13) BUN 37 H (6-20) mg/dL Creatinine 3.4 H (0.6-1.2) mg/dL Estimated GFR (MDRD) 25 L (>89) Glucose 125 H (70-100) mg/dL POC Whole Bld Glucose 144 H (70 - 100) mg/dL Calcium 7.7 L (8.5-10.3) mg/dL Iron (45-182) ug/dL TIBC (250-450) ug/dL % Saturation (20-50) % Transferrin (180-329) mg/dL Ferritin (23.9-336.2) ng/mL Total Creatine Kinase 350 H (22-269) IU/L U Random Total Protein mg/dL Ur 24 Hour Volume mL Urine Creatinine mg/dL Ur Total Protein 24 Hr (40-150) mg/24hr Ur Total Protein Timed mg/dL 08/14/19 08/14/19 08/13/19 Range/Units 05:42 02:16 22:06 WBC (4.8-10.8) x10^3/uL RBC (4.70-6.10) 10^6/uL Hgb (14.0-18.0) g/dL Hct (42.0-52.0) % MCV (80.0-94.0) fL MCH (27.0-31.0) pg MCHC (32.0-36.0) g/dL RDW (12.0-15.0) % Plt Count (130-450) 10^3/uL MPV (7.4-11.4) fL Neut # (Auto) (1.5-6.6) 10^3/uL Lymph # (Auto) (1.5-3.5) 10^3/uL [place] # (Auto) (0.0-1.0) 10^3/uL Eos # (Auto) (0.0-0.7) 10^3/uL Baso # (Auto) (0.0-0.1) 10^3/uL Absolute Nucleated RBC x10^3/uL Nucleated RBC % /100WBC Sodium (135-145) mmol/L Potassium (3.5-5.0) mmol/L Chloride (101-111) mmol/L Carbon Dioxide (21-32) mmol/L Anion Gap (6-13) BUN (6-20) mg/dL Creatinine (0.6-1.2) mg/dL Estimated GFR (MDRD) (>89) Glucose (70-100) mg/dL POC Whole Bld Glucose 126 H (70 - 100) mg/dL Calcium (8.5-10.3) mg/dL Iron (45-182) ug/dL TIBC (250-450) ug/dL % Saturation (20-50) % Transferrin (180-329) mg/dL Ferritin (23.9-336.2) ng/mL Total Creatine Kinase (22-269) IU/L U Random Total Protein 283 mg/dL Ur 24 Hour Volume 2500 mL Urine Creatinine 91.7 mg/dL Ur Total Protein 24 Hr 07511 H (40-150) mg/24hr Ur Total Protein Timed 519 mg/dL 08/13/19 08/13/19 Range/Units 20:27 16:46 WBC (4.8-10.8) x10^3/uL RBC (4.70-6.10) 10^6/uL Hgb (14.0-18.0) g/dL Hct (42.0-52.0) % MCV (80.0-94.0) fL MCH (27.0-31.0) pg MCHC (32.0-36.0) g/dL RDW (12.0-15.0) % Plt Count (130-450) 10^3/uL MPV (7.4-11.4) fL Neut # (Auto) (1.5-6.6) 10^3/uL Lymph # (Auto) (1.5-3.5) 10^3/uL [place] # (Auto) (0.0-1.0) 10^3/uL Eos # (Auto) (0.0-0.7) 10^3/uL Baso # (Auto) (0.0-0.1) 10^3/uL Absolute Nucleated RBC x10^3/uL Nucleated RBC % /100WBC Sodium (135-145) mmol/L Potassium (3.5-5.0) mmol/L Chloride (101-111) mmol/L Carbon Dioxide (21-32) mmol/L Anion Gap (6-13) BUN (6-20) mg/dL Creatinine (0.6-1.2) mg/dL Estimated GFR (MDRD) (>89) Glucose (70-100) mg/dL POC Whole Bld Glucose 124 H 158 H (70 - 100) mg/dL Calcium (8.5-10.3) mg/dL Iron (45-182) ug/dL TIBC (250-450) ug/dL % Saturation (20-50) % Transferrin (180-329) mg/dL Ferritin (23.9-336.2) ng/mL Total Creatine Kinase (22-269) IU/L U Random Total Protein mg/dL Ur 24 Hour Volume mL Urine Creatinine mg/dL Ur Total Protein 24 Hr (40-150) mg/24hr Ur Total Protein Timed mg/dL ABX Reporting Has patient been on IV antibiotics over the past 48 hours?: No Assessment/Plan - Problem List (1) Acute kidney injury superimposed on CKD Impression: It is unclear if this is acute kidney injury or just worsening of his chronic kidney disease. His creatinine has been stable at around 3.4. His underlying CKD is likely secondary to his diabetes. I did speak with his physician asst today to discuss his renal function. Dr. Mark, his physician asst, stated that she does not feel that it is urgent to obtain a biopsy at this time. We reviewed the urinalysis and urine protein and creatinine results. She felt that his baseline CKD secondary to diabetes and this may explain his nephrotic range proteinuria although proteinuria has increased compared to prior labs. She recommended screening the patient for COVID-19 and obtaining complements including C3, C4, CH 50. She has recommended obtaining an SPEP and UPEP. She felt that monitoring the patient for another day would be of benefit and to monitor his renal function. If it is stable, she will follow-up with the patient on an outpatient basis. She also stated that if we have any concerns regarding worsening renal function, to contact her to discuss transfer but at this time it is not warranted. We will continue to hold his home losartan given the possibility of acute kidney injury. We will also obtain a urinalysis today as prior sediment showed granular casts. (2) Essential hypertension Impression: His blood pressures improved to 160 systolic but he has required multiple pushes of IV hydralazine and labetalol. We have resumed his home amlodipine dose and continued him on metoprolol 50 mg daily. We will start hydralazine 25 mg 3 times daily. We will continue to hold the thiazide and angiotensin receptor brenton given the acute kidney injury. He may need uptitrating of the hydralazine and possibly the addition of clonidine if his blood pressure is difficult to control. We will continue to adjust these medications as he remains hospitalized. (3) Type 1 diabetes mellitus Impression: His blood glucose has been well controlled on his insulin pump. We will continue the carb controlled diet. (4) Abdominal pain Impression: Abdominal pain has significantly improved and nearly resolved now. He is able to tolerate a diet without difficulty. Suspect this may been related to his gastroparesis. We will continue with antiemetics as needed. He may be discharged on scheduled Reglan if his abdominal pain persists and he develops nausea/vomiting. Qualifiers: Abdominal location: periumbilical Qualified Code(s): R10.33 - Periumbilical pain (5) Anemia in chronic kidney disease Impression: His hemoglobin has trended down and is now 8.6. Suspect is likely dilutional and his white count and platelets have also decreased given him of IV fluids he received. There is no evidence of bleeding at the moment. Did check iron studies today and given his iron level is low with a ferritin less than 500 and a transient saturation less than 30%, will start him on oral iron. Qualifiers: Chronic kidney disease stage: stage 4 (severe) Qualified Code(s): N18.4 - C hronic kidney disease, stage 4 (severe); D63.1 - Anemia in chronic kidney disease (6) Asymptomatic bacteriuria Impression: His urinalysis on admission showed many bacteria with 6-10 WBCs. When he is a male, he was started on ceftriaxone. Urine culture has no growth to date. We will repeat a urinalysis today and if this is unremarkable, we will continue the Ceftin for 5 days total (7) Gastroesophageal reflux disease Impression: Stable. Continue Protonix. Qualifiers: Esophagitis presence: esophagitis presence not specified Qualified Code(s): K21.9 - Gastro-esophageal reflux disease without esophagitis (8) PTSD (post-traumatic stress disorder) Impression: Stable. Continue prazosin. (9) Urinary retention Impression: This has resolved. Continue to bladder scan as needed.
[2019-08-14] MEDS ORDERED: DOCUSATE SODIUM 250 MG CAPSULE PO SCH (14:00)
[2019-08-14] MEDS: SENNA 8.6 MG TABLET PO SCH (14:12)
[2019-08-14 14:46] LABS: BILIRUBIN,URINE NEGATIVE (NEGATIVE); GLUCOSE, URINE (UA) 100 mg/dL (NEGATIVE); KETONES,URINE (UA) NEGATIVE (NEGATIVE); LEUKOCYTE ESTERASE, URINE NEGATIVE (NEGATIVE); NITRITE,URINE NEGATIVE (NEGATIVE); OCCULT BLOOD,URINE SMALL (NEGATIVE); PH,URINE 5.5 PH (5.0-7.5); PROTEIN,URINE >=300 mg/dL (NEGATIVE); UROBILINOGEN,URINE 0.2 (NORMAL) E.U./dL (NORMAL)
[2019-08-14 15:01] LABS: BACTERIA,URINE None Seen /HPF (None Seen); CASTS, URINE 0-2 Hyaline Casts /LPF; CLARITY,URINE CLEAR (CLEAR); RBC,URINE 0-5 /HPF (0-5); SQUAMOUS EPITHELIAL CELL,UR RARE Squamous (<= Few)
[2019-08-14] MEDS: carvediloL 12.5 MG TABLET PO SCH (21:16)
[2019-08-15 05:03] LABS: BASOPHILS % (AUTO) 0.6 %; EOSINOPHILS # (AUTO) 0.2 10^3/uL (0.0-0.7); EOSINOPHILS % (AUTO) 4.7 %; HGB - HEMOGLOBIN 8.2 g/dL (14.0-18.0); LYMPHOCYTES # (AUTO) 1.1 10^3/uL (1.5-3.5); LYMPHOCYTES % (AUTO) 21.2 %; MEAN CORPUSCULAR HGB CONC 33.1 g/dL (32.0-36.0); MEAN CORPUSCULAR VOLUME 90.8 fL (80.0-94.0); MEAN PLATELET VOLUME 9.2 fL (7.4-11.4); MONOCYTES # (AUTO) 0.6 10^3/uL (0.0-1.0); MONOCYTES % (AUTO) 10.9 %; NEUTROPHILS # (AUTO) 3.2 10^3/uL (1.5-6.6); NEUTROPHILS % (AUTO) 62.4 %; PLT - PLATELET COUNT 259 10^3/uL (130-450); RED BLOOD COUNT 2.73 10^6/uL (4.70-6.10); RED CELL DISTRIBUTION WIDTH 12.4 % (12.0-15.0); WHITE BLOOD COUNT 5.2 x10^3/uL (4.8-10.8)
[2019-08-15 05:13] LABS: CALCIUM 7.7 mg/dL (8.5-10.3); CREATININE 3.1 mg/dL (0.6-1.2)
[2019-08-15] MEDS: PANTOPRAZOLE 40 MG TABLET PO SCH (06:53)
[2019-08-15] MEDS: SODIUM CHLORIDE FLUSH 0.9% 10 ML SYRINGE IVP SCH ×2 (06:53→09:01)
[2019-08-15] MEDS: hydrALAZINE 25 MG TABLET PO SCH ×2 (06:53→13:32)
--- NOTE | 2019-08-15 08:22 | Discharge Plan ---
Discharge Plan Problem Reviewed?: Yes Disposition: Home, Self Care Condition: Good Prescriptions: Amlodipine Besylate 10 mg PO QPM #30 tablet carvediloL [Coreg] 12.5 mg PO BID #60 tablet Ferrous Sulfate 325 mg PO DAILY #30 tablet Hydralazine HCl 50 mg PO TID #90 tablet Pantoprazole [Protonix] 40 mg PO QDAC #30 tablet Diet: Diabetic Activity Restrictions: Activity as Tolerated Shower Restrictions: No Driving Restrictions: No Instruction Topics: Injury Acute Kidney Dc, Hypertension Dc Health Concerns: You were seen in the hospital because your blood pressure was elevated and your kidney numbers were elevated compared to your baseline. We adjusted your blood pressure medication and this has since improved. You will need to continue to follow-up on an outpatient basis as your medications will likely need to be continue to be adjusted. Your kidney numbers have improved since you have been hospitalized but they are not back to where they were last month. I did speak with your kidney doctor who will like to follow-up with you next week. Please follow-up with them as they may need to repeat labs to make sure your kidney numbers are stable. You may eventually need a kidney biopsy at some point if your kidney numbers continue to rise. Plan of Treatment: Please take your blood pressure medications as prescribed. They are amlodipine, carvedilol, hydralazine. You were also started on an iron pill which you can take daily for anemia. Please follow-up with your sciences dean as you may need a special injection to help with low blood counts as this is not uncommon in people with kidney disease Continue to take your insulin as you previously were via your insulin pump. Care Goals: Please follow-up with your primary care provider next week as scheduled. Please follow-up with your sciences dean next week as well. Assessment: Patient expressed understanding of the treatment plan. No Smoking: If you smoke, Please STOP! Call for help. Follow-up with: CYNDY MARTINEZ MD [Primary Care Provider] -
--- NOTE | 2019-08-15 08:23 | DISCHARGE SUMMARY ---
"Discharge Summary Admit Date: 08/12/19 Discharge Date: 08/15/19 Discharging Provider: Michael Thacker Primary Care Provider: Roxanne Johnson Code Status: Attempt Resuscitation Condition at Discharge: Good Discharge Disposition: Home, Self Care - DIAGNOSES Admission Diagnoses: Hypertensive urgency Acute kidney injury Insulin-dependent diabetes mellitus Abdominal pain Hyperlipidemia GERD Discharge Diagnoses with Status of Each Condition: Acute kidney injury superimposed on CKD - improving. Creatinine on admission was 3.3 and it peaked at 3.7. On discharge his creatinine is 3.1. It is unclear it is all acute kidney injury or possibly decline of his chronic kidney disease. He will follow-up with his geophysical support specialist on outpatient basis. Essential hypertension - stable. He was discharged on carvedilol 12.5 mg twice a day, hydralazine 50 mg 3 times daily, amlodipine 10 mg every evening, and prazosin 2 mg every evening. He was not discharged on losartan or hydrochlorothiazide given his acute kidney injury. It is recommended that he follow-up with his primary care provider and geophysical support specialist as these may potentially be resumed on an outpatient basis. I did ask him to check his blood pressure 2-3 times a day and he is agreeable to this. Type 1 diabetes mellitus - stable. We will continue his home insulin pump regimen. His blood sugars were well controlled during his hospitalization. Abdominal pain - resolved. CT of the abdomen pelvis prior to admission was unremarkable. Anemia of chronic kidney disease - stable. His iron studies were checked as his hemoglobin had been decreasing during his hospitalization. Suspect he was initially hemoconcentrated in the initial drop was due to dilution. Iron studies were suggestive of iron deficiency anemia and he was started on iron sulfate daily. This was discussed with his geophysical support specialist will see him on an outpatient basis as he may potentially need erythropoietin. Asymptomatic bacteriuria - resolved. He was initially treated with ceftriaxone IV and was transitioned to Ceftin orally. Urine culture showed no bacterial growth. He was not discharged on antibiotics. GERD - stable. Continue home Protonix. PTSD - stable. Continue Prazosin. - HPI History of Present Illness: H&P per Dr. Mast on 08/12/19: Patient is a 39-year-old male with history of diabetes mellitus on an insulin pump, hypertension, kidney disease, hyperlipidemia and GERD who presented to the ED with complaint of abdominal pain. It is mainly diffuse but it is worse around the periumbilical area. Patient has significant tenderness to palpation of the entire abdomen. He had presented to the ED the previous day and had a CT of the abdomen pelvis without contrast done. It showed some perinephric stranding. The rest of it was unremarkable. He returned to the ED today because the pain was worse. He described it as a sharp pain which started 3 days ago. He denies chest pain or dyspnea. He reported nausea/vomiting. His last bowel mov ement was 3 days ago. He has been having some difficulties urinating. His urine color has been dark yellow. In the ED his systolic blood pressure has been as high as 220. He was also tachycardic with a heart rate of 109. He was found to have a troponin of 50 with a BNP of 272. His creatinine was 3.3 and CK of 974. As a result of the lab findings and his physical presentation he is being admitted for further treatment. - CONSULTS | PROCEDURES Procedures: Underwent renal arterial Dopplers which showed no renal artery stenosis and no evidence of hydronephrosis. - HOSPITAL COURSE Hospital Course: He was admitted to the floor for hypertensive urgency and acute kidney injury. His creatinine was 3.3 and his baseline appears to be approximately 2.7 based off labs from the [facility] in June. Kids were elevated on admission at 974 and these decreased with IV fluids. He was initially treated with labetalol 20 mg IV ev shai 4 hours and hydralazine 10 mg IV as needed. He is started on normal saline given elevated CKs and concern for acute kidney injury. His urinalysis showed occult blood and bacteria with 6-10 WBCs. He also had granular casts and hyaline casts evident. He was then started on oral metoprolol and continued on IV hydration. His blood pressure remained elevated in the 180s systolic and he required multiple pushes of IV labetalol and hydralazine. His creatinine continued to increase and peaked at 3.7. Renal artery Doppler ultrasound was performed on August 11 which showed no evidence of stenosis or hydronephrosis.24- hour urine protein collection was obtained which came back elevated at 12,975 mg. Spot urine protein was 283 mg/dL and creatinine was 91.7 mg/dL. Given the concern for possible need for renal biopsy due to worsening renal function and proteinuria, his case was discussed with his neurologist Dr. Teresa Mark at the [facility]. At that time, his creatinine had improved once again to 3.4. Dr. Mark felt that transfer for biopsy would not be necessary at this time and that his proteinuria may just be explained by his diabetic nephropathy. He would recommend obtaining C3, C4, CH 50 which were ordered and are pending. She also recommended obtaining SPEP and UPEP which have also been ordered and are pending. I did repeat a urinalysis which showed resolution of the granular c asts. IV fluids were discontinued and he was started on hydralazine 25 mg 3 times daily, carvedilol 12.5 mg twice a day and amlodipine 10 mg every evening in addition to his prazosin 2 mg every evening. His renal function improved the following day down to a creatinine of 3.1. His blood pressures also remained stable in the 160s to 170 systolic. His hydralazine was then increased to 50 mg 3 times daily and he was continued on amlodipine and carvedilol. On the last day of hospitalization, the patient was feeling well and he really wanted to be discharged home as he had been feeling well now for over 48 hours. Blood pressure was checked prior to discharge and was elevated at 194/104. I expressed my concern about discharging the suction elevated blood pressure given he presented with a systolic of 220 and acute kidney injury. We agreed to recheck his blood pressure again in the afternoon. It had improved to 175/100 and he has just received a dose of hydralazine orally. Given the patient had really wanted to go home, I felt it was reasonable to discharge him home. I asked him to check his blood pressure 2-3 times a day and if it is persistently elevated above a systolic of 180 to contact his primary care provider and he was agreeable to this plan. I did inform him that he will likely need uptitrating of his antihypertensives and he understands this. He will be following up with his primary care provider and his geophysical support specialist. - ALLERGIES Allergies/Adverse Reactions: Allergies Allergy/AdvReac Type Severity Reaction Status Date / Time No Known Drug Allergies Allergy Verified 08/11/19 23:37 - MEDICATIONS Home Medications: Ambulatory Orders Medication Instructions Recorded Confirmed Ondansetron Odt [Zofran Odt] 4 mg TL Q6H PRN #10 tablet 08/10/19 08/12/19 Insulin Aspart [Novolog] .CONTINUOUS PUMP 08/12/19 Promethazine HCl 25 mg PO Q6H PRN 08/12/19 08/12/19 Amlodipine Besylate 10 mg PO QPM #30 tablet 08/15/19 Ferrous Sulfate 325 mg PO DAILY #30 tablet 08/15/19 Hydralazine HCl 50 mg PO TID #90 tablet 08/15/19 Pantoprazole [Protonix] 40 mg PO QDAC #30 tablet 08/15/19 carvediloL [Coreg] 12.5 mg PO BID #60 tablet 08/15/19 - PHYSICAL EXAM AT DISCHARGE General Appearance: positive: No acute distress, Alert Eyes Bilateral: positive: Normal inspection ENT: positive: ENT inspection nml Neck: positive: Nml inspection Respiratory: positive: No respiratory distress. negative: Wheezes, Rales, Rhonchi Cardiovascular: positive: Regular rate & rhythm, No murmur. negative: Tachyc ardia, Bradycardia, Systolic murmur Abdomen: positive: Non-tender, No distention. negative: Tenderness, Guarding, Rebound Skin: positive: Warm, Dry Extremities: positive: Full ROM, Pedal edema (Trace edema in bilateral lower extremities) Neurologic/Psychiatric: positive: Oriented x3. negative: Disoriented to place, Disoriented to time - LABS Result Diagrams: 08/15/19 04:50 08/15/19 04:50 - DIAGNOSTIC IMAGING Diagnostic Imaging Results: Final report reviewed - FOLLOW UP Follow Up: He will be following up with his primary care provider and geophysical support specialist next week. - TIME SPENT Time Spent in Discharge (Minutes): 35"
[2019-08-15] MEDS: HEPARIN 5,000 UNIT/ML VIAL SUBQ SCH (08:58)
[2019-08-15] MEDS: SENNA 8.6 MG TABLET PO SCH (08:58)
[2019-08-15] MEDS: DOCUSATE SODIUM 250 MG CAPSULE PO SCH (08:58)
[2019-08-15] MEDS: carvediloL 12.5 MG TABLET PO SCH (08:59)
[2019-08-15] MEDS: FERROUS SULFATE 325 MG TABLET PO SCH (08:59)
[2019-08-15] MEDS: polyethylene glycoL 3350 17 GM PACKET PO SCH (09:00)
--- NOTE | 2019-08-15 09:02 | XRAY Report ---
Reason: Constipation. Abdominal pain. Procedure Date: 08/15/2019 Accession Number: [id number] / [id number] Procedure: XR - Abdomen 1 View X-Ray CPT Code: 75987 Final Report FULL RESULT: EXAM: ABDOMEN RADIOGRAPHY EXAM DATE: 08/15/2019 08:48 AM. CLINICAL HISTORY: Constipation. Abdominal pain. COMPARISON: None. TECHNIQUE: 1 view. FINDINGS: Bowel Gas Pattern: Within normal limits. No dilated loops. Other: None. IMPRESSION: 1. Normal 1-view abdomen x-ray. 2. No evidence of bowel obstruction or abnormal stool volume. RADIA
[2019-08-15] MEDS ORDERED: MINERAL OIL ENEMA 133 ML BOTTLE RC ONE (10:00)
[2019-08-15 14:59] VITALS: BP 175/100
[2019-08-15] MEDS ORDERED: amLODIPine 5 MG TABLET PO SCH (21:00)
[2019-08-16 13:05] LABS: ALBUMIN 2.4 g/dL (3.8-4.8); ALPHA 1 GLOBULIN 0.3 g/dL (0.2-0.3); ALPHA 2 GLOBULIN 0.7 g/dL (0.5-0.9); BETA 1 GLOBULIN 0.3 g/dL (0.4-0.6); BETA 2 GLOBULIN 0.4 g/dL (0.2-0.5)
[2019-08-16 13:50] LABS: COMPLEMENT COMPONENT C3C 116 mg/dL (82-185); COMPLEMENT COMPONENT C4C 43 mg/dL (15-53)
== END 2019-08-15 15:10 | disposition home or self-care (01) | DRG 305 ==
LOC: ED 23:31 → MS2 08-12 01:15
PROVIDERS: ADMIT Internal Medicine; ATTEND Internal Medicine
DX: I16.0 Hypertensive urgency (principal); N17.9 Acute kidney failure, unspecified; N18.4 Chronic kidney disease, stage 4 (severe); E10.22 Type 1 diabetes mellitus with diabetic chronic kidney disease; I12.9 Hypertensive chronic kidney disease with stage 1 through stage 4 chronic kidney disease, or unspecified chronic kidney disease; Z96.41 Presence of insulin pump (external) (internal); D63.1 Anemia in chronic kidney disease; D50.9 Iron deficiency anemia, unspecified; E78.5 Hyperlipidemia, unspecified; K21.9 Gastro-esophageal reflux disease without esophagitis; R10.12 Left upper quadrant pain; R10.33 Periumbilical pain; R82.71 Bacteriuria; F43.10 Post-traumatic stress disorder, unspecified; R31.9 Hematuria, unspecified; R30.0 Dysuria; R33.9 Retention of urine, unspecified; Z79.899 Other long term (current) drug therapy; Z20.828 Contact with and (suspected) exposure to other viral communicable diseases
CPT/HCPCS: 36415; 71045; 74018; 80048; 80053; 80061; 80306; 80320; 81001; 82009; 82550; 82570; 82728; 82803; 83036; 83540; 83605; 83690; 83735; 83880; 84100; 84155; 84156; 84165; 84300; 84443; 84466; 84484; 85025; 85610; 85730; 86160; 87086; 87635; 93005; 93306; 93975; 96361; 96374; 96375; 99285; 99291; A9270; J2765; 81003; 81599; 83721

== ENCOUNTER 2019-08-16 21:28 | Emergency (ER) | payer OTHER ==
[2019-08-16 21:33] VITALS: BP 162/80
[2019-08-16 22:03] LABS: BASOPHILS % (AUTO) 0.4 %; EOSINOPHILS # (AUTO) 0.2 10^3/uL (0.0-0.7); EOSINOPHILS % (AUTO) 2.8 %; LYMPHOCYTES # (AUTO) 0.6 10^3/uL (1.5-3.5); LYMPHOCYTES % (AUTO) 11.3 %; MEAN CORPUSCULAR HEMOGLOBIN 30.4 pg (27.0-31.0); MEAN CORPUSCULAR HGB CONC 34.6 g/dL (32.0-36.0); MEAN CORPUSCULAR VOLUME 87.8 fL (80.0-94.0); MEAN PLATELET VOLUME 9.2 fL (7.4-11.4); MONOCYTES # (AUTO) 0.5 10^3/uL (0.0-1.0); MONOCYTES % (AUTO) 8.8 %; NEUTROPHILS # (AUTO) 4.4 10^3/uL (1.5-6.6); NEUTROPHILS % (AUTO) 76.5 %; PLT - PLATELET COUNT 306 10^3/uL (130-450); RED BLOOD COUNT 2.96 10^6/uL (4.70-6.10); RED CELL DISTRIBUTION WIDTH 12.4 % (12.0-15.0); WHITE BLOOD COUNT 5.7 x10^3/uL (4.8-10.8)
--- NOTE | 2019-08-16 22:09 | ED Physician Documentation ---
PD HPI ABD PAIN - Stated complaint Stated Complaint: ABD PX, NAUSEA - Chief complaint Chief Complaint: Abd Pain - History obtained from History obtained from: Patient - History of Present Illness Timing - onset: How many days ago (2-3) Timing - duration: Days Timing - details: Gradual onset, Intermittant, Waxing and waning Pain level max: 6 Pain level now: 2 Quality: Cramping, Pain Location: All over / everywhere Improved by: Other (no ameliorating factors) Worsened by: Other (no exacerbating factors) Associated symptoms: Nausea, Vomiting, Constipation. No: Fever, Diarrhea Similar symptoms before: Diagnosis (diabetic gastroparesis) Recently seen: Emergency Dept, Admitted - Additional information Additional information: c/o 2-3 days of abdominal pain, nausea, vomiting. He has PO zofran and promethazine at home and these have been ineffective in controlling symptoms. He was T+R from this ED 08/09, and again on 08/11 with admission for hypertension and abnormal bun/creatinine. Over the past week, tests have included CXR, CT A/P, abdominal US (arterial visceral US), and plain-film abdominal xrays; these did not reveal diagnostic results regarding abdominal symptoms. Review of Systems Constitutional: denies: Fever, Chills, Sweats Cardiac: reports: Reviewed and negative Respiratory: reports: Reviewed and negative GI: reports: Abdominal Pain, Nausea, Vomiting, Constipation : denies: Dysuria, Frequency Musculoskeletal: denies: Back pain PD PAST MEDICAL HISTORY - Past Medical History Past Medical History: Yes Cardiovascular: High cholesterol, Hypertension Respiratory: None Endocrine/Autoimmune: Type 1 diabetes GI: GERD, Ulcers HEENT: None Psych: Depression, Post traumatic stress disorder Derm: None - Past Surgical History Past Surgical History: No General: Appendectomy - Present Medications Home Medications: Ambulatory Orders Medication Instructions Recorded Confirmed Ondansetron Odt [Zofran Odt] 4 mg TL Q6H PRN #10 tablet 08/10/19 08/12/19 Insulin Aspart [Novolog] .CONTINUOUS PUMP 08/12/19 Promethazine HCl 25 mg PO Q6H PRN 08/12/19 08/12/19 Amlodipine Besylate 10 mg PO QPM #30 tablet 08/15/19 Ferrous Sulfate 325 mg PO DAILY #30 tablet 08/15/19 Hydralazine HCl 50 mg PO TID #90 tablet 08/15/19 Pantoprazole [Protonix] 40 mg PO QDAC #30 tablet 08/15/19 carvediloL [Coreg] 12.5 mg PO BID #60 tablet 08/15/19 Metoclopramide [Reglan] 10 mg PO Q6H PRN #14 tablet 08/16/19 oxyCODONE [Roxicodone] 5 mg PO Q6H PRN #10 tablet 08/16/19 - Allergies Allergies/Adverse Reactions: Allergies Allergy/AdvReac Type Severity Reaction Status Date / Time No Known Drug Allergies Allergy Verified 08/16/19 21:30 - Social History Does the pt smoke?: No Smoking Status: Never smoker Does the pt drink ETOH?: No Does the pt have substance abuse?: No - Immunizations Immunizations are current?: Yes - POLST Patient has POLST: No PD ED PE NORMAL - Vitals Vital signs reviewed: Yes - General General: Alert and oriented X 3, No acute distress, Well developed/nourished - HEENT HEENT: Moist mucous membranes - Neck Neck: Supple, no meningeal sign - Cardiac Cardiac: RRR, No murmur - Respiratory Respiratory: No respiratory distress, Clear bilaterally - Abdomen Abdomen: Normal bowel sounds, Soft, Non tender, Non distended - Back Back: No CVA TTP Results - Vitals Vitals: Vital Signs - 24 hr 08/16/19 21:30 Temperature 36.9 C Heart Rate 90 Respiratory 14 Rate Blood Pressure 162/80 H O2 Saturation 100 Oxygen O2 Source Room air - Labs Labs: Laboratory Tests 08/16/19 08/16/19 21:53 21:53 WBC 5.7 RBC 2.96 L Hgb 9.0 L Hct 26.0 L MCV 87.8 MCH 30.4 MCHC 34.6 RDW 12.4 Plt Count 306 MPV 9.2 Neut # (Auto) 4.4 Lymph # (Auto) 0.6 L Bibb # (Auto) 0.5 Eos # (Auto) 0.2 Baso # (Auto) 0.0 Absolute Nucleated RBC 0.00 Nucleated RBC % 0.0 Sodium 135 Potassium 3.6 Chloride 108 Carbon Dioxide 21 Anion Gap 6.0 BUN 33 H Creatinine 3.2 H Estimated GFR (MDRD) 26 L Glucose 160 H Calcium 8.1 L Total Bilirubin 0.5 AST 20 ALT 15 Alkaline Phosphatase 44 Total Protein 5.6 L Albumin 2.5 L Globulin 3.1 Albumin/Globulin Ratio 0.8 L Lipase 20 L PD MEDICAL DECISION MAKING - ED course Complexity details: reviewed old records, reviewed results, re-evaluated patient, considered differential, d/w patient ED course: test results tonight are comparable to results prior to recent [facility] discharge, with marginal improvement in h/h, bun, creatinine. Symptom control achieved with PO reglan and oxycodone and he was discharged with prescriptions for these medications and instructed to f/u with PMD but return if worse in any way Departure - Departure Disposition: 01 Home, Self Care Clinical Impression: Nausea & vomiting Qualifiers: Vomiting type: unspecified Vomiting Intractability: non-intractable Qualified Code(s): R11.2 - Nausea with vomiting, unspecified Abdominal pain Qualifiers: Abdominal location: generalized Qualified Code(s): R10.84 - Generalized abdominal pain Condition: Good Instructions: ED Nausea Vomiting, ED Abdominal Pain Unkn Cause Male Follow-Up: CYNDY MARTINEZ MD [Primary Care Provider] - Prescriptions: Metoclopramide [Reglan] 10 mg PO Q6H PRN #14 tablet PRN Reason: Nausea / Vomiting oxyCODONE [Roxicodone] 5 mg PO Q6H PRN #10 tablet PRN Reason: Pain Comments: You can try the metoclopramide for nausea/vomiting instead of the promethazine (but you can take the ondansetron with either the promethazine OR the metoclopramide). Discharge Date/Time: 08/16/19 23:25
[2019-08-16 22:12] LABS: ALBUMIN 2.5 g/dL (3.2-5.5); ALBUMIN/GLOBULIN RATIO 0.8 (1.0-2.2); BILIRUBIN,TOTAL 0.5 mg/dL (0.2-1.0); CALCIUM 8.1 mg/dL (8.5-10.3); CREATININE 3.2 mg/dL (0.6-1.2); TOTAL PROTEIN 5.6 g/dL (6.7-8.2)
[2019-08-16] MEDS ORDERED: METOCLOPRAMIDE 10 MG TABLET PO STA (22:33)
[2019-08-16] MEDS ORDERED: oxyCODONE 5 MG TABLET PO STA (22:34)
== END 2019-08-16 23:25 | disposition home or self-care (01) ==
LOC: ED 21:28
DX: R11.2 Nausea with vomiting, unspecified (principal); R10.84 Generalized abdominal pain; E10.9 Type 1 diabetes mellitus without complications; I10 Essential (primary) hypertension
CPT/HCPCS: 36415; 80053; 83690; 85025; 99283; 99284; A9270

== ENCOUNTER 2019-09-01 13:21 | Emergency (ER) | payer OTHER ==
--- NOTE | 2019-09-01 13:47 | ED Physician Documentation ---
History of Present Illness - Stated complaint Stated Complaint: POTASSIUM CHECK - Chief complaint Chief Complaint: General - History obtained from History obtained from: Patient - History of Present Illness Timing: How many days ago (has had elevated creatinine and potassium for several days. FOund on labs at [facility]. had it rechecked at [facility] yesterday and was improving, and told to have rechecked again today. Came here. Recently admitted for illness and acute on chronic renal failure. Had meds changed and labs trending improvement.) Review of Systems Constitutional: denies: Fever, Chills, Fatigue Nose: denies: Rhinorrhea / runny nose, Congestion Throat: denies: Sore throat Respiratory: denies: Cough GI: denies: Abdominal Pain, Vomiting, Diarrhea Musculoskeletal: denies: Extremity swelling PD PAST MEDICAL HISTORY - Past Medical History Cardiovascular: High cholesterol, Hypertension Respiratory: None Endocrine/Autoimmune: Type 1 diabetes GI: GERD, Ulcers HEENT: None Psych: Depression, Post traumatic stress disorder Derm: None - Past Surgical History Past Surgical History: No General: Appendectomy - Present Medications Home Medications: Ambulatory Orders Medication Instructions Recorded Confirmed Ondansetron Odt [Zofran Odt] 4 mg TL Q6H PRN #10 tablet 08/10/19 08/12/19 Insulin Aspart [Novolog] .CONTINUOUS PUMP 08/12/19 Promethazine HCl 25 mg PO Q6H PRN 08/12/19 08/12/19 Amlodipine Besylate 10 mg PO QPM #30 tablet 08/15/19 Ferrous Sulfate 325 mg PO DAILY #30 tablet 08/15/19 Hydralazine HCl 50 mg PO TID #90 tablet 08/15/19 Pantoprazole [Protonix] 40 mg PO QDAC #30 tablet 08/15/19 carvediloL [Coreg] 12.5 mg PO BID #60 tablet 08/15/19 Metoclopramide [Reglan] 10 mg PO Q6H PRN #14 tablet 08/16/19 oxyCODONE [Roxicodone] 5 mg PO Q6H PRN #10 tablet 08/16/19 - Allergies Allergies/Adverse Reactions: Allergies Allergy/AdvReac Type Severity Reaction Status Date / Time No Known Drug Allergies Allergy Verified 09/01/19 13:34 - Social History Does the pt smoke?: No Smoking Status: Never smoker Does the pt drink ETOH?: No Does the pt have substance abuse?: No - Immunizations Immunizations are current?: Yes - POLST Patient has POLST: No PD ED PE NORMAL - Vitals Vital signs reviewed: Yes - General General: Alert and oriented X 3, No acute distress, Well developed/nourished - Cardiac Cardiac: RRR, No murmur - Respiratory Respiratory: Clear bilaterally - Abdomen Abdomen: Soft, Non tender - Extremities Extremities: No edema, No calf tenderness / cord - Neuro Neuro: Alert and oriented X 3, No motor deficit, Normal speech Results - Vitals Vitals: Oxygen O2 Source Room air - Labs Labs: Laboratory Tests 09/01/19 14:00 Sodium 134 L Potassium 4.9 Chloride 104 Carbon Dioxide 21 Anion Gap 9.0 BUN 32 H Creatinine 3.3 H Estimated GFR (MDRD) 25 L Glucose 259 H Calcium 8.1 L Magnesium 1.5 L PD MEDICAL DECISION MAKING - ED course Complexity details: reviewed old records (from [facility] from yesterday), reviewed results (potassium okay. Creatinine trending better and closer to baseline of 2.7 by old labs.), considered differential, d/w patient Departure - Departure Disposition: Home, Self Care Clinical Impression: Renal insufficiency Condition: Stable Record reviewed to determine appropriate education?: Yes Follow-Up: CYNDY MARTINEZ MD [Primary Care Provider] - Comments: Adequate hydration. Be sure to be doing a low protein in low-salt diet for your blood pressure and kidney function. Continue current medications and double check to be sure you are off of the previous losartan, hydrochlorothiazide, and do not have any potassium supplements including multivitamins. Otherwise follow-up with your provider at the [facility] this coming week as planned. Discharge Date/Time: 09/01/19 14:56
[2019-09-01 14:18] LABS: CALCIUM 8.1 mg/dL (8.5-10.3); CREATININE 3.3 mg/dL (0.6-1.2); MAGNESIUM 1.5 mg/dL (1.7-2.8)
[2019-09-01 14:58] VITALS: BP 195/101
== END 2019-09-01 14:56 | disposition home or self-care (01) ==
LOC: ED 13:21
DX: I12.9 Hypertensive chronic kidney disease with stage 1 through stage 4 chronic kidney disease, or unspecified chronic kidney disease (principal); E10.22 Type 1 diabetes mellitus with diabetic chronic kidney disease; N18.9 Chronic kidney disease, unspecified
CPT/HCPCS: 36415; 80048; 83735; 99283

== ENCOUNTER 2019-09-19 08:58 | Inpatient (IN) | payer OTHER ==
--- NOTE | 2019-09-19 09:20 | ED Physician Documentation ---
PD HPI CHEST PAIN - Stated complaint Stated Complaint: CHEST PX - Chief complaint Chief Complaint: Cardiac - History obtained from History obtained from: Patient - History of Present Illness Timing - onset: How many days ago (2) Timing - onset during: Rest Timing - duration: Days (2) Timing - details: Gradual onset, Still present Quality: Sharp, Pain Location: Substernal Improved by: Antacids Associated symptoms: Nausea, Vomiting, General Weakness Similar symptoms before: Diagnosis (diabetic gastroparesis) Recently seen: Emergency Dept, Admitted - Additional information Additional information: 39-year-old male with 15-year history of type 1 diabetes and hypertension has developed diabetic gastroparesis and in the last month he has been into the emergency room and admitted into the hospital with hypertensive urgency related to his gastroparesis and not been able to hold his antihypertensives down. He has developed renal insufficiency as well and his creatinines are running over 3. He indicates he has not had cannabis in over a year. Review of Systems Constitutional: denies: Fever Eyes: denies: Decreased vision Ears: denies: Ear pain Nose: denies: Rhinorrhea / runny nose, Congestion Throat: denies: Sore throat Cardiac: reports: Chest pain / pressure. denies: Palpitations, Pedal edema, Calf pain Respiratory: reports: Dyspnea. denies: Cough GI: reports: Abdominal Pain, Nausea, Vomiting : denies: Dysuria, Frequency PD PAST MEDICAL HISTORY - Past Medical History Cardiovascular: High cholesterol, Hypertension Respiratory: None Endocrine/Autoimmune: Type 1 diabetes GI: GERD, Ulcers HEENT: None Psych: Depression, Post traumatic stress disorder Derm: None - Past Surgical History Past Surgical History: No General: Appendectomy - Present Medications Home Medications: Ambulatory Orders Medication Instructions Recorded Confirmed Ondansetron Odt [Zofran Odt] 4 mg TL Q6H PRN #10 tablet 08/10/19 08/12/19 Insulin Aspart [Novolog] .CONTINUOUS PUMP 08/12/19 Promethazine HCl 25 mg PO Q6H PRN 08/12/19 08/12/19 Amlodipine Besylate 10 mg PO QPM #30 tablet 08/15/19 Ferrous Sulfate 325 mg PO DAILY #30 tablet 08/15/19 Hydralazine HCl 50 mg PO TID #90 tablet 08/15/19 Pantoprazole [Protonix] 40 mg PO QDAC #30 tablet 08/15/19 carvediloL [Coreg] 12.5 mg PO BID #60 tablet 08/15/19 Metoclopramide [Reglan] 10 mg PO Q6H PRN #14 tablet 08/16/19 oxyCODONE [Roxicodone] 5 mg PO Q6H PRN #10 tablet 08/16/19 - Allergies Allergies/Adverse Reactions: Allergies Allergy/AdvReac Type Severity Reaction Status Date / Time No Known Drug Allergies Allergy Verified 09/19/19 09:08 - Social History Does the pt smoke?: No Smoking Status: Never smoker Does the pt drink ETOH?: No Does the pt have substance abuse?: No - Immunizations Immunizations are current?: Yes - POLST Patient has POLST: No PD ED PE NORMAL - Vitals Vital signs reviewed: Yes (Hypertensive Tachypneic and tachycardic) - General General: Alert and oriented X 3, No acute distress, Well developed/nourished - HEENT HEENT: Atraumatic, PERRL, EOMI, Other (dry mucous membranes ) - Neck Neck: Supple, no meningeal sign, No bony TTP - Cardiac Cardiac: No murmur, Other (tachycardic to 110) - Respiratory Respiratory: No respiratory distress, Clear bilaterally - Abdomen Abdomen: Normal bowel sounds, Soft, Non distended, No organomegaly, Other (mild general tenderness without focal tenderness or garding ) - Back Back: No CVA TTP, No spinal TTP - Derm Derm: Normal color, Warm and dry, No rash - Extremities Extremities: No deformity, No edema, No calf tenderness / cord - Neuro Neuro: Alert and oriented X 3, 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, No motor deficit, No sensory deficit, Normal speech Eye Opening: Spontaneous Motor: Obeys Commands Verbal: Oriented GCS Score: 15 - Psych Psych: Normal mood, Normal affect Results - Vitals Vitals: Vital Signs - 24 hr 09/19/19 09/19/19 09/19/19 09:05 09:23 09:41 Temperature 98.7 C H 37.1 C Heart Rate 100 101 H 102 H Respiratory 27 H 23 19 Rate Blood Pressure 227/124 H 231/126 H 221/116 H O2 Saturation 100 100 100 09/19/19 09/19/19 09/19/19 09:59 10:15 10:25 Temperature 37.0 C Heart Rate 94 93 94 Respiratory 15 18 15 Rate Blood Pressure 221/102 H 233/114 H 205/105 H O2 Saturation 93 94 96 09/19/19 10:30 Temperature Heart Rate 94 Respiratory 10 L Rate Blood Pressure 180/101 H O2 Saturation 95 Oxygen O2 Source Room air - EKG (time done) 0906 Rate: Rate (enter#) (100) Rhythm: Sinus tachycardia, LAE Compare to prior EKG: Changed from prior EKG (08-11-2019 the rate is lower and the tracing no longer meets criteria for LVH) Computer interpretation: Agree with computer - Labs Labs: Laboratory Tests 09/19/19 09/19/19 09/19/19 09:37 09:37 09:37 WBC 7.8 RBC 2.75 L Hgb 8.1 L Hct 24.6 L MCV 89.5 MCH 29.5 MCHC 32.9 RDW 12.5 Plt Count 342 MPV 9.6 Neut # (Auto) 6.3 Lymph # (Auto) 0.7 L Toole # (Auto) 0.7 Eos # (Auto) 0.0 Baso # (Auto) 0.0 Absolute Nucleated RBC 0.00 Nucleated RBC % 0.0 VBG pH VBG pCO2 VBG pO2 VBG HCO3 VBG Total CO2 VBG O2 Saturation VBG Base Excess Sodium 142 Potassium 3.9 Chloride 106 Carbon Dioxide 21 Anion Gap 15.0 H BUN 35 H Creatinine 3.5 H Estimated GFR (MDRD) 24 L Glucose 249 H Lactic Acid Calcium 8.5 Total Bilirubin 1.1 H AST 20 ALT 22 Alkaline Phosphatase 68 Troponin I High Sens 32.1 H* Total Protein 6.8 Albumin 3.2 Globulin 3.6 Albumin/Globulin Ratio 0.9 L Lipase 21 L 09/19/19 09/19/19 09:37 09:37 WBC RBC Hgb Hct MCV MCH MCHC RDW Plt Count MPV Neut # (Auto) Lymph # (Auto) Toole # (Auto) Eos # (Auto) Baso # (Auto) Absolute Nucleated RBC Nucleated RBC % VBG pH 7.419 H VBG pCO2 34.7 L VBG pO2 64.7 H VBG HCO3 22.0 L VBG Total CO2 23.0 L VBG O2 Saturation 92.8 H VBG Base Excess -2.2 L Sodium Potassium Chloride Carbon Dioxide Anion Gap BUN Creatinine Estimated GFR (MDRD) Glucose Lactic Acid 1.2 Calcium Total Bilirubin AST ALT Alkaline Phosphatase Troponin I High Sens Total Protein Albumin Globulin Albumin/Globulin Ratio Lipase - Rads (name of study) cxr Radiology: Prelim report reviewed (Impression: 1. Bilateral perihilar peribronchial thickening and right infrahilar alveolar opacities suggesting bronchitis and bronchopneumonia. 2. Heart size at upper limits of normal without findings of overt CHF.), EMP read indepedently, See rad report Procedures - IVC sono (time) 0925 Bedside IVC sono: IVC measures (cm) (1.8), IVC collapsed c insp (cm) (complete), Dehydration (est 1 liter deficit) PD MEDICAL DECISION MAKING - ED course Complexity details: reviewed old records, reviewed results, re-evaluated patient, considered differential, d/w patient ED course: 39-year-old diabetic male with a history of diabetic gastroparesis hypertension and renal insufficiency presents to the hospital again with an episode of gastroparesis resulting in hypertensive urgency. He required a hospitalization last time this occurred. Today on his chest x-ray there is concern for infiltrate in the right base. He indicates he has had a cough since he started vomiting and he complains of centralized chest pain. He is administered 20 mg of labetalol intravenously with a reduction in his blood pressure. He continues to have some symptoms of nausea but his vomiting has stopped. His renal insufficiency is stable his anemia is slightly worse than usual.This patient's gastroparesis usually takes days to resolve and I do not think he is a good candidate for a trial at home. In addition he looks like he has pneumonia today on his x-ray. Departure - Departure Disposition: [facility] DC/Xfer Clinical Impression: Gastroparesis diabeticorum, Hypertensive urgency Chest pain Qualifiers: Chest pain type: unspecified Qualified Code(s): R07.9 - Chest pain, unspecified Pneumonia Qualifiers: Pneumonia type: due to unspecified organism Laterality: right Lung location: lower lobe of lung Qualified Code(s): J18.9 - Pneumonia, unspecified organism
[2019-09-19] MEDS ORDERED: LABETALOL 20 MG/4 ML SYRINGE IVP STA (09:31)
[2019-09-19] MEDS ORDERED: METOCLOPRAMIDE 10 MG/2 ML VIAL IVP STA (09:32)
[2019-09-19] MEDS: SODIUM CHLORIDE 0.9% 1,000 ML IV STA (09:39)
--- NOTE | 2019-09-19 09:41 | XRAY Report ---
PROCEDURE: Chest 1 View X-Ray INDICATIONS: Chest pain TECHNIQUE: One view of the chest was acquired. COMPARISON: 08/11/2019 FINDINGS: Surgical changes and devices: None. Lungs and pleura: Interval development of small right infrahilar alveolar opacity and mild bilatera l peribronchial thickening. No large pleural effusion or pneumothorax.. Mediastinum: Mediastinal contours appear normal. Heart size is at the upper limits of normal accoun ting for AP technique.. Bones and chest wall: No suspicious bony lesions. Overlying soft tissues appear unremarkable. IMPRESSION: 1. Bilateral perihilar peribronchial thickening and right infrahilar alveolar opacity suggesting bron chitis and bronchopneumonia. 2. Heart size at the upper limits of normal without findings of overt CHF. Reviewed by: Gabbie Lara MD on 09/19/2019 9:40 AM PDT Approved by: Gabbie Lara MD on 09/19/2019 9:40 AM PDT Station ID: [id number]
[2019-09-19 09:50] LABS: BASOPHILS % (AUTO) 0.5 %; EOSINOPHILS % (AUTO) 0.3 %; HGB - HEMOGLOBIN 8.1 g/dL (14.0-18.0); LYMPHOCYTES # (AUTO) 0.7 10^3/uL (1.5-3.5); LYMPHOCYTES % (AUTO) 9.4 %; MEAN CORPUSCULAR HEMOGLOBIN 29.5 pg (27.0-31.0); MEAN CORPUSCULAR HGB CONC 32.9 g/dL (32.0-36.0); MEAN CORPUSCULAR VOLUME 89.5 fL (80.0-94.0); MEAN PLATELET VOLUME 9.6 fL (7.4-11.4); MONOCYTES # (AUTO) 0.7 10^3/uL (0.0-1.0); MONOCYTES % (AUTO) 8.8 %; NEUTROPHILS # (AUTO) 6.3 10^3/uL (1.5-6.6); NEUTROPHILS % (AUTO) 80.6 %; PLT - PLATELET COUNT 342 10^3/uL (130-450); RED BLOOD COUNT 2.75 10^6/uL (4.70-6.10); RED CELL DISTRIBUTION WIDTH 12.5 % (12.0-15.0); WHITE BLOOD COUNT 7.8 x10^3/uL (4.8-10.8)
[2019-09-19 10:05] LABS: ALBUMIN 3.2 g/dL (3.2-5.5); ALBUMIN/GLOBULIN RATIO 0.9 (1.0-2.2); ALKALINE PHOSPHATASE 68 IU/L (42-121); ALT ALANINE AMINOTRANSFERASE 22 IU/L (10-60); AST ASPARTATE AMINOTRANSFERASE 20 IU/L (10-42); BILIRUBIN,TOTAL 1.1 mg/dL (0.2-1.0); BUN - BLOOD UREA NITROGEN 35 mg/dL (6-20); CALCIUM 8.5 mg/dL (8.5-10.3); CARBON DIOXIDE - CO2 21 mmol/L (21-32); CHLORIDE 106 mmol/L (101-111); CREATININE 3.5 mg/dL (0.6-1.2); GLUCOSE 249 mg/dL (70-100); LIPASE 21 U/L (22-51); SODIUM 142 mmol/L (135-145); TOTAL PROTEIN 6.8 g/dL (6.7-8.2)
[2019-09-19 10:23] LABS: VBG BASE EXCESS -2.2 mmol/L (-2 - +2); VBG PCO2 34.7 mmHg (41-51); VBG PH 7.419 (7.31-7.41); VBG PO2 64.7 mmHg (25-47)
[2019-09-19] MEDS ORDERED: cefTRIAXone 1 GM in SODIUM CHLORIDE 0.9% MINIBAG 100 ML IV STA (10:39)
[2019-09-19] MEDS ORDERED: AZITHROMYCIN INJ 500 MG in SODIUM CHLORIDE 0.9% 250 ML IV STA (10:40)
[2019-09-19 11:01] LABS: KETONES, SERUM (ACETEST) NEGATIVE (NEGATIVE)
[2019-09-19] MEDS ORDERED: PROCHLORPERAZINE 10 MG/2 ML VIAL IVP PRN (11:43)
--- NOTE | 2019-09-19 12:18 | PHARMACY PROGRESS NOTE ---
- Best Possible Medication History Admit Date and Time: 09/19/19 1143 Processed by: Pharmacy Medication History completed: Yes Patient Interview: Pt unable to participate Secondary Source(s): Spouse/Significant other, Pharmacy records, Insurance re cords As the person ultimately responsible for medication therapy, providers are able to order a medication from an existing home medication list in [facility] via the "Reconcile Routine" prior to Confirmation of that medication by director of academic support. Such practice is discouraged except when the physician, in their clinical judgment, deems that a medical need exists for a medication without regard to pr evious use.
[2019-09-19] MEDS: FAMOTIDINE 20 MG/2 ML SYRINGE IVP SCH ×2 (13:56→21:15)
[2019-09-19] MEDS: HYDROmorphone 0.5 MG/0.5 ML SYRINGE IVP PRN ×3 (13:56→21:14)
[2019-09-19] MEDS: SODIUM CHLORIDE FLUSH 0.9% 10 ML SYRINGE IVP PRN ×2 (13:56→14:36)
[2019-09-19] MEDS: INSULIN REGULAR HUMAN 300 UNIT/3 ML VIAL SUBQ SCH ×2 (13:56→16:49)
[2019-09-19] MEDS: D5NS W/20 MEQ KCL 1,000 ML IV SCH (14:36)
[2019-09-19] MEDS: hydrALAZINE INJ 20 MG/ML VIAL IVP SCH ×2 (15:52→21:15)
[2019-09-19] MEDS: SODIUM CHLORIDE FLUSH 0.9% 10 ML SYRINGE IVP SCH (15:52)
--- NOTE | 2019-09-19 16:28 | HISTORY & PHYSICAL EXAMINATION ---
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 He carries a diagnosis of anemia of chronic disease. He used to be a cannabis user, but has denied this use in over a year. He was just here 1 month ago with hypertensive urgency related to not being able to keep his blood pressure medicines in, because of nausea and vomiting from diabetic gastroparesis. The patient presents now with a similar problem of nausea and vomiting x2 days, unable to keep his medicines down. He was found to have a blood pressure of 220/116, was tachycardic. He was given blood pressure management in the ER and antiemetics, and blood pressure has improved to 180/101. The other workup in the ER shows that he has a creatinine now of 3.5 and a probable community- acquired pneumonia by chest x-ray. He is being admitted for management of diabetic gastroparesis, dehydration, community-acquired pneumonia. PAST MEDICAL HISTORY: Depression, posttraumatic stress disorder, diabetes mellitus type 1, diabetic gastroparesis, history of GERD and peptic ulcers, hyperlipidemia and hypertension, and he is status post appendectomy. ALLERGIES: NONE. MEDICATIONS 1. Zofran sublingual p.r.n. 2. NovoLog insulin by insulin pump. He does not know his maintenance dose or how he gives himself boluses with meals. 3. Promethazine 25 mg q.6 hours p.r.n. nausea. 4. Amlodipine 10 mg, which apparently he has not used. 5. Iron 325 mg daily. 6. Hydralazine 50 mg t.i.d. 7. Protonix 40 mg daily. 8. Carvedilol 12.5 mg b.i.d. 9. Reglan p.r.n. 10. Oxycodone p.r.n. pain. SOCIAL HISTORY: The patient is a nonsmoker, who never smoked, drinks no alcohol, no history of drug abuse now, in the past there was cannabis use. None in 1 year. FAMILY HISTORY: No inherited diseases. REVIEW OF SYSTEMS: A comprehensive review of systems is done from chart review since the patient is now somnolent. The pertinent positives are listed, the rest are negative. PHYSICAL EXAMINATION GENERAL: Young black male who is currently somnolent. VITAL SIGNS: Blood pressure 180/95, heart rate 95 in sinus rhythm, afebrile, room air saturation 100%. HEENT: Reveals dry oral mucosa. NECK: No JVD supine. CHEST: Clear. HEART: Normal heart sounds. No murmur. ABDOMEN: Soft, scaphoid, nontender. No guarding or rebound. Diminished bowel sounds in all quadrants. EXTREMITIES: No clubbing, cyanosis, edema. NEUROLOGIC: Intact, but currently asleep, but arouses easily. LABORATORY DATA: Sodium 142, potassium 3.9, anion gap 15. Serum ketones negative. BUN 35, creatinine 3.5, glucose 249. Lactic acid 1.2. Bilirubin 1.1. Normal liver tests. Troponins 32 and 27. Lipase normal at 21. White blood count 7.8, hemoglobin 8.1 with a normal MCV, platelet count normal at 342. No INR was done. EKG: Sinus tachycardia, rate of 100, left atrial enlargement, no acute ischemic changes. Chest x-ray: Heart size is upper limits of normal. There is perihilar peribronchial thickening and a right infrahilar opacity suggesting a bronchopneumonia. IMPRESSION/DIAGNOSES 1. Nausea and vomiting. 2. Diabetic gastroparesis. 3. Type 1 diabetes, on insulin pump. 4. Community-acquired pneumonia but more likely an aspiration pneumonia. 5. DM with stage 4 CKD, GFR 15-29. 6. Hypertensive urgency (related to inability to take his blood pressure medication from the vomiting). 7. Anemia of chronic disease. PLAN: Admit the patient to a Med/Surg bed, inpatient status, on telemetry. Continue with iv antiemetics prn. Continue with IV fluids containing D5, continue bowel rest, and prn pain medications IV if needed. Begin Reglan in order to help treat the gastroparesis. Discontinue his insulin pump and use sliding scale insulin coverage in a patient that is n.p.o. Begin treatment of the pneumonia with IV ceftriaxone and IV Zithromax. Follow his BMP daily. Check A1c. Continue with his blood pressure medications parenterally, will use hydralazine 50 mg t.i.d. IV and Lopressor 5 mg q.6 hours IV. When he has improved symptoms from the gastroparesis, resume his oral blood pressure, diet and insulin management, and then obtain Diabetic RN consult from [facility]. Follow his CBC daily because of the anemia. CODE STATUS: FULL CODE. DEEP VENOUS THROMBOSIS PROPHYLAXIS: SCDs. ATTESTATION: The patient is expected to be discharged or transferred to another facility within 96 hours: Yes. cc: Roxanne Johnson MD TD: 09/19/2019 16:04 MTDD
[2019-09-19] MEDS: METOPROLOL 5 MG/5 ML VIAL IVP SCH (18:11)
[2019-09-19] MEDS: ONDANSETRON 4 MG/2 ML VIAL IVP PRN (18:20)
[2019-09-20] MEDS ORDERED: METOCLOPRAMIDE 10 MG/2 ML VIAL IVP SCH
[2019-09-20] MEDS: INSULIN REGULAR HUMAN 300 UNIT/3 ML VIAL SUBQ SCH ×4 (00:20→18:43)
[2019-09-20] MEDS: D5NS W/20 MEQ KCL 1,000 ML IV SCH ×2 (00:21→11:55)
[2019-09-20] MEDS: METOCLOPRAMIDE 10 MG/2 ML VIAL IVP SCH ×4 (00:24→17:35)
[2019-09-20] MEDS: METOPROLOL 5 MG/5 ML VIAL IVP SCH ×4 (00:25→17:35)
[2019-09-20] MEDS: HYDROmorphone 0.5 MG/0.5 ML SYRINGE IVP PRN ×7 (00:28→20:45)
[2019-09-20] MEDS: SODIUM CHLORIDE FLUSH 0.9% 10 ML SYRINGE IVP SCH ×3 (00:40→16:16)
[2019-09-20 06:11] LABS: HEMOGLOBIN A1C 0.5 g/dL; HEMOGLOBIN A1C % 7.9 % (4.6-6.2)
[2019-09-20] MEDS: hydrALAZINE INJ 20 MG/ML VIAL IVP SCH ×3 (06:14→18:37)
[2019-09-20 07:23] LABS: BASOPHILS % (AUTO) 0.5 %; EOSINOPHILS # (AUTO) 0.1 10^3/uL (0.0-0.7); LYMPHOCYTES # (AUTO) 0.8 10^3/uL (1.5-3.5); MEAN CORPUSCULAR HEMOGLOBIN 30.9 pg (27.0-31.0); MEAN CORPUSCULAR HGB CONC 33.6 g/dL (32.0-36.0); MEAN CORPUSCULAR VOLUME 91.9 fL (80.0-94.0); MEAN PLATELET VOLUME 9.9 fL (7.4-11.4); MONOCYTES # (AUTO) 0.8 10^3/uL (0.0-1.0); MONOCYTES % (AUTO) 10.4 %; NEUTROPHILS % (AUTO) 77.5 %; PLT - PLATELET COUNT 345 10^3/uL (130-450); RED BLOOD COUNT 2.59 10^6/uL (4.70-6.10); RED CELL DISTRIBUTION WIDTH 12.9 % (12.0-15.0); WHITE BLOOD COUNT 7.7 x10^3/uL (4.8-10.8)
[2019-09-20 07:35] LABS: CALCIUM 8.2 mg/dL (8.5-10.3); CREATININE 3.3 mg/dL (0.6-1.2); MAGNESIUM 2.1 mg/dL (1.7-2.8)
[2019-09-20] MEDS: FAMOTIDINE 20 MG/2 ML SYRINGE IVP SCH ×2 (08:39→20:45)
[2019-09-20] MEDS: cefTRIAXone 2 GM in SODIUM CHLORIDE 0.9% MINIBAG 100 ML IV SCH (08:40)
[2019-09-20] MEDS: AZITHROMYCIN INJ 500 MG in SODIUM CHLORIDE 0.9% 250 ML IV SCH (09:40)
[2019-09-20] MEDS ORDERED: INSULIN GLARGINE 300 UNIT/3 ML PEN SUBQ SCH (12:20)
--- NOTE | 2019-09-20 12:24 | PROVIDER PROGRESS NOTE ---
Assessment/Plan - Problem List (1) Gastroparesis diabeticorum Assessment/Plan: Reglan scheduled dosing IV was started last evening. Continue with symptomatic IV meds for nausea and vomiting. No diet ordered yet, he remains on IV hydration with D5 nutrition. (2) Hypertensive urgency Assessment/Plan: Blood pressure was over 200 systolic, as he could not keep down his p.o. antihypertensives because of vomiting for 2 days. He is on IV beta-brenton and IV hydralazine here. BP is still elevated at 180-190's/80s-90's. Continue IV blood pressure meds today, as he cannot yet swallow p.o. meds due to nausea. Will increase the iv doses for BP control. Will also start topical Clonidine patch weekly, this way he can get a blood pressure medication when he has future nausea and vomiting from his diabetic gastroparesis. Would plan to discharge home on this new management. (3) CAP (community acquired pneumonia) Assessment/Plan: Versus aspiration pneumonia because of the recent frequent vomiting. He has been started on empiric IV antibiotics (Zithromax and ceftriaxone). (4) Type 1 diabetes mellitus with complication, with longterm current use of insulin pump Assessment/Plan: Patient does not know his settings for basal rate or boluses with his diet. The insulin pump was ordered to not be used while here. He is still getting D5 by IV, does not have a diet yet because he is still nauseated and gagging. Stars Coordinator saw him today and recommended the addition of Lantus insulin on top of the sliding scale, will start Lantus 5 units subcu now then Lantus Insulin 8 units subcu twice daily Will also request diabetic nurse educator from [facility] to see him when he is able to participate with decisions, and feels better from his nausea and vomiting, possibly tomorrow. (5) CKD stage 4 due to type 1 diabetes mellitus Assessment/Plan: Patient is normally followed by a precision agronomist and his baseline creatinines run 3-3.5. He had a stable creatinine, for him, at admission yesterday at 3.5. There has been improvement down to 3.3 today with IV hydration. Follow BMP daily. Avoid nephrotoxic agents. (6) Anemia of chronic disease Assessment/Plan: Follow CBC daily. Transfuse if hemoglobin goes under 7 - Current Meds Current Meds: Current Medications Generic Name Dose Route Start Last Admin Trade Name Elda PRN Reason Stop Dose Admin Famotidine 20 mg 09/19/19 12:00 09/20/19 08:39 Pepcid IVP 20 mg BID LAUREN Administration Hydralazine HCl 10 mg 09/19/19 16:00 09/20/19 06:14 Apresoline Inj IVP 10 mg TID LAUREN Administration Hydromorphone HCl 0.5 mg 09/19/19 11:43 09/20/19 09:37 Dilaudid Inj Syringe IVP 0.5 mg Q3H PRN Administration Pain 8 to 10 Potassium Chloride/Dextrose/Sod Cl 1,000 mls @ 100 mls/hr 09/19/19 12:00 09/20/19 11:55 IV 100 mls/hr .Q10H LAUREN Administration Azithromycin 500 mg/ Sodium 250 mls @ 250 mls/hr 09/20/19 10:00 09/20/19 09:40 Chloride IV 09/21/19 10:59 250 mls/hr Q24H [facility]EN Administration Ceftriaxone Sodium 2 gm/ 100 mls @ 200 mls/hr 09/20/19 09:00 09/20/19 09:10 Sodium Chloride IV Infused DAILY LAUREN Infusion Insulin Human Regular 1 - 9 unit 09/19/19 12:00 09/20/19 12:10 Humulin R SUBQ 3 unit Q6HR LAUREN Administration Protocol Metoclopramide HCl 5 mg 09/20/19 00:00 09/20/19 12:02 Reglan Inj IVP 5 mg Q6HR LAUREN Administration Metoprolol Tartrate 5 mg 09/19/19 18:00 09/20/19 12:02 Lopressor Inj IVP 5 mg Q6HR LAUREN Administration Ondansetron HCl 4 mg 09/19/19 11:43 09/19/19 18:20 Zofran Inj IVP 4 mg Q6HR PRN Administration Nausea / Vomiting Sodium Chloride 10 ml 09/19/19 11:43 09/19/19 14:36 Normal Saline Flush 0.9% IVP 10 ml PRN PRN Administration NEEDED PER PROVIDER ORDERS Sodium Chloride 10 ml 09/19/19 17:00 09/20/19 08:40 Normal Saline Flush 0.9% IVP Not Given 0100,0900,1700 LAUREN - Lab Result Fish Bone Diagrams: 09/20/19 05:00 09/20/19 05:00 - Additional Planning My Orders: My Active Orders 09/19/19 11:43 Activity Orders [RC] Q2HR IO [RC] IOSHIFT Initiate Bowel Care Protocol [RC] .protocol Initiate Line Care Protocol [RC] QSHIFT Initiate Personal Care Protoco [RC] .protocol Oxygen Therapy [RC] .PRN Telemetry- [RC] Q4HR Vital Signs [RC] Q4HR HYDROmorphone INJ SYRINGE [Dilaudid Inj Syringe] 0.5 mg IVP Q3H PRN Ondansetron Inj [Zofran Inj] 4 mg IVP Q6HR PRN Prochlorperazine Inj [Compazine Inj] 10 mg IVP Q6HR PRN Sodium Chloride Flush 0.9% [Normal Saline Flush 0.9%] 10 ml IVP PRN PRN Code Status [OTHERS] Routine Condition of Patient [OTHERS] Routine DVT Prophylaxis [OTHERS] Routine 09/19/19 11:45 SCDs [RC] QSHIFT NPO except Meds [DIET] 09/19/19 11:46 IV Insert [RC] .ONCE 09/19/19 11:47 Blood Glucose POC [RC] 0000,0600,1200,1800 Initiate Hypoglycemia Protocol [RC] .protocol 09/19/19 12:00 D5ns W/20 Meq KCl 1,000 ml IV 100 mls/hr Famotidine [Pepcid] 20 mg IVP BID Insulin Regular Human [Humulin R] 1 - 9 unit SUBQ Q6HR 09/19/19 16:00 hydrALAZINE INJ [Apresoline Inj] 10 mg IVP TID 09/19/19 17:00 Sodium Chloride Flush 0.9% [Normal Saline Flush 0.9%] 10 ml IVP 0100,0900,1700 09/19/19 18:00 Metoprolol Inj [Lopressor Inj] 5 mg IVP Q6HR 09/20/19 09:00 cefTRIAXone [Rocephin] 2 gm Sodium Chloride 0.9% Minibag [Normal Saline 0.9% Minibag] 100 ml IV DAILY 09/20/19 10:00 Azithromycin Inj [Zithromax Inj] 500 mg Sodium Chloride 0.9% [Normal Saline 0.9%] 250 ml IV Q24H 09/20/19 12:20 Insulin Glargine [Lantus Solostar] 5 unit SUBQ ONCE 09/20/19 21:00 Insulin Glargine [Lantus Solostar] 8 unit SUBQ BID Subjective - Subjective Patient Reports: Nausea (He wants no food or clear liquids yet because he still is nauseated requesting antiemetics), Other (Feels tired, sleepy) Objective Vital Signs: Vital Signs - 24 hr 09/19/19 09/19/19 09/19/19 13:22 14:55 15:52 Temperature 36.8 C 36.8 C Heart Rate 95 Heart Rate [ 95 Monitoring electrodes] Respiratory 18 18 Rate Blood Pressure 174/93 H Blood Pressure 183/95 H [Right Brachial artery] O2 Saturation 100 92 09/19/19 09/19/19 09/19/19 16:57 18:11 21:00 Temperature 37.3 C 36.7 C Heart Rate Heart Rate [ 94 90 Monitoring electrodes] Respiratory 18 18 Rate Blood Pressure 155/79 H Blood Pressure 172/92 H 189/104 H [Right Brachial artery] O2 Saturation 94 94 09/19/19 09/19/19 09/20/19 21:15 21:45 00:07 Temperature 36.7 C Heart Rate Heart Rate [ 96 Monitoring electrodes] Respiratory 18 Rate Blood Pressure 189/104 H Blood Pressure 175/90 H 181/98 H [Right Brachial artery] O2 Saturation 93 09/20/19 09/20/19 09/20/19 00:25 05:00 06:14 Temperature 37.0 C Heart Rate Heart Rate [ 96 Monitoring electrodes] Respiratory 18 Rate Blood Pressure 181/98 H 189/97 H Blood Pressure 189/97 H [Right Brachial artery] O2 Saturation 93 09/20/19 09/20/19 09/20/19 06:21 08:47 12:00 Temperature 37.0 C 36.6 C Heart Rate Heart Rate [ 92 95 Monitoring electrodes] Respiratory 17 18 Rate Blood Pressure 189/97 H Blood Pressure 164/86 H 179/92 H [Right Brachial artery] O2 Saturation 92 93 09/20/19 09/20/19 12:02 12:05 Temperature Heart Rate Heart Rate [ Monitoring electrodes] Respiratory Rate Blood Pressure 179/92 H Blood Pressure 188/95 H [Right Brachial artery] O2 Saturation Oxygen O2 Source Room air I&O (Last 24 Hrs): Intake and Output Totals x24h 09/18/19 09/19/19 09/20/19 23:59 23:59 23:59 Intake Total 1700 2075 Output Total 500 Balance 1700 1575 General: Alert, Other (Sleepy but awakens, answers with nodding his head or short sentences) HEENT: Mucous membr. moist/pink Neck: Supple Neuro: Non Focal Cardiovascular: Regular rate Respiratory: No respiratory distress Abdomen: Soft, Other (Diminished bowel sounds, no guarding or rebound) Extremities: No edema - Results Results: Laboratory Results WBC 7.7 x10^3/uL (4.8-10.8) 09/20/19 05:00 RBC 2.59 10^6/uL (4.70-6.10) L 09/20/19 05:00 Hgb 8.0 g/dL (14.0-18.0) L 09/20/19 05:00 Hct 23.8 % (42.0-52.0) L 09/20/19 05:00 MCV 91.9 fL (80.0-94.0) 09/20/19 05:00 MCH 30.9 pg (27.0-31.0) 09/20/19 05:00 MCHC 33.6 g/dL (32.0-36.0) 09/20/19 05:00 RDW 12.9 % (12.0-15.0) 09/20/19 05:00 Plt Count 345 10^3/uL (130-450) 09/20/19 05:00 MPV 9.9 fL (7.4-11.4) 09/20/19 05:00 Neut # (Auto) 6.0 10^3/uL (1.5-6.6) 09/20/19 05:00 Lymph # (Auto) 0.8 10^3/uL (1.5-3.5) L 09/20/19 05:00 [place] # (Auto) 0.8 10^3/uL (0.0-1.0) 09/20/19 05:00 Eos # (Auto) 0.1 10^3/uL (0.0-0.7) 09/20/19 05:00 Baso # (Auto) 0.0 10^3/uL (0.0-0.1) 09/20/19 05:00 Absolute Nucleated RBC 0.00 x10^3/uL 09/20/19 05:00 Nucleated RBC % 0.0 /100WBC 09/20/19 05:00 VBG pH 7.419 (7.31-7.41) H 09/19/19 09:37 VBG pCO2 34.7 mmHg (41-51) L 09/19/19 09:37 VBG pO2 64.7 mmHg (25-47) H 09/19/19 09:37 VBG HCO3 22.0 mmol/L (23-28) L 09/19/19 09:37 VBG Total CO2 23.0 mmol/L (24-29) L 09/19/19 09:37 VBG O2 Saturation 92.8 % (60-80) H 09/19/19 09:37 VBG Base Excess -2.2 mmol/L (-2 - +2) L 09/19/19 09:37 Sodium 142 mmol/L (135-145) 09/20/19 05:00 Potassium 4.0 mmol/L (3.5-5.0) 09/20/19 05:00 Chloride 110 mmol/L (101-111) 09/20/19 05:00 Carbon Dioxide 22 mmol/L (21-32) 09/20/19 05:00 Anion Gap 10.0 (6-13) 09/20/19 05:00 BUN 34 mg/dL (6-20) H 09/20/19 05:00 Creatinine 3.3 mg/dL (0.6-1.2) H 09/20/19 05:00 Estimated GFR (MDRD) 25 (>89) L 09/20/19 05:00 Glucose 246 mg/dL (70-100) H 09/20/19 05:00 Glycated Hemoglobin 7.9 % (4.6-6.2) H 09/20/19 05:00 Estim Average Glucose 180 (70-100) H 09/20/19 05:00 Lactic Acid 1.2 mmol/L (0.5-2.2) 09/19/19 09:37 Calcium 8.2 mg/dL (8.5-10.3) L 09/20/19 05:00 Phosphorus 4.0 mg/dL (2.5-4.6) 09/20/19 05:00 Magnesium 2.1 mg/dL (1.7-2.8) 09/20/19 05:00 Total Bilirubin 1.1 mg/dL (0.2-1.0) H 09/19/19 09:37 AST 20 IU/L (10-42) 09/19/19 09:37 ALT 22 IU/L (10-60) 09/19/19 09:37 Alkaline Phosphatase 68 IU/L (42-121) 09/19/19 09:37 Troponin I High Sens 27.5 ng/L (2.3-19.7) H* 09/19/19 12:00 Total Protein 6.8 g/dL (6.7-8.2) 09/19/19 09:37 Albumin 3.2 g/dL (3.2-5.5) 09/19/19 09:37 Globulin 3.6 g/dL (2.1-4.2) 09/19/19 09:37 Albumin/Globulin Ratio 0.9 (1.0-2.2) L 09/19/19 09:37 Lipase 21 U/L (22-51) L 09/19/19 09:37 Serum Ketones NEGATIVE (NEGATIVE) 09/19/19 09:37
[2019-09-20] MEDS ORDERED: cloNIDine 0.1 MG PATCH TOP SCH (13:00)
[2019-09-20] MEDS ORDERED: DILTIAZEM 50 MG/10 ML VIAL IVP SCH (13:43)
[2019-09-20] MEDS ORDERED: SODIUM CHLORIDE 0.9% 500 ML IV ONE (13:43)
[2019-09-20] MEDS ORDERED: SODIUM CHLORIDE 0.9% 1,000 ML IV ONE (14:02)
[2019-09-20] MEDS: SODIUM CHLORIDE 0.9% 1,000 ML IV STA (14:09)
[2019-09-20] MEDS: INSULIN GLARGINE 300 UNIT/3 ML PEN SUBQ SCH (20:48)
[2019-09-21] MEDS: D5NS W/20 MEQ KCL 1,000 ML IV SCH ×3 (00:57→21:03)
[2019-09-21] MEDS: HYDROmorphone 0.5 MG/0.5 ML SYRINGE IVP PRN ×4 (00:58→20:35)
[2019-09-21] MEDS: METOPROLOL 5 MG/5 ML VIAL IVP SCH ×2 (00:59→06:31)
[2019-09-21] MEDS: hydrALAZINE INJ 20 MG/ML VIAL IVP SCH ×2 (01:00→06:29)
[2019-09-21] MEDS: METOCLOPRAMIDE 10 MG/2 ML VIAL IVP SCH ×4 (01:04→17:07)
[2019-09-21] MEDS: SODIUM CHLORIDE FLUSH 0.9% 10 ML SYRINGE IVP SCH ×3 (01:04→15:48)
[2019-09-21] MEDS: INSULIN REGULAR HUMAN 300 UNIT/3 ML VIAL SUBQ SCH ×3 (01:06→12:47)
[2019-09-21 05:48] LABS: BASOPHILS # (AUTO) 0.1 10^3/uL (0.0-0.1); BASOPHILS % (AUTO) 0.8 %; EOSINOPHILS # (AUTO) 0.1 10^3/uL (0.0-0.7); EOSINOPHILS % (AUTO) 1.5 %; HGB - HEMOGLOBIN 7.8 g/dL (14.0-18.0); LYMPHOCYTES # (AUTO) 0.9 10^3/uL (1.5-3.5); LYMPHOCYTES % (AUTO) 11.1 %; MEAN CORPUSCULAR HEMOGLOBIN 29.2 pg (27.0-31.0); MEAN CORPUSCULAR HGB CONC 31.5 g/dL (32.0-36.0); MEAN CORPUSCULAR VOLUME 92.9 fL (80.0-94.0); MEAN PLATELET VOLUME 9.6 fL (7.4-11.4); MONOCYTES # (AUTO) 0.8 10^3/uL (0.0-1.0); MONOCYTES % (AUTO) 9.6 %; NEUTROPHILS # (AUTO) 6.5 10^3/uL (1.5-6.6); NEUTROPHILS % (AUTO) 76.4 %; PLT - PLATELET COUNT 334 10^3/uL (130-450); RED BLOOD COUNT 2.67 10^6/uL (4.70-6.10); RED CELL DISTRIBUTION WIDTH 13.1 % (12.0-15.0); WHITE BLOOD COUNT 8.5 x10^3/uL (4.8-10.8)
[2019-09-21 05:59] LABS: CALCIUM 8.6 mg/dL (8.5-10.3); CREATININE 3.4 mg/dL (0.6-1.2)
[2019-09-21] MEDS: ONDANSETRON 4 MG/2 ML VIAL IVP PRN (06:11)
[2019-09-21] MEDS ORDERED: HYDROmorphone 1 MG/ML CARPUJECT IVP SCH (08:58)
[2019-09-21] MEDS: carvediloL 12.5 MG TABLET PO SCH ×2 (09:32→20:12)
[2019-09-21] MEDS: hydrALAZINE 25 MG TABLET PO SCH ×2 (09:32→20:12)
[2019-09-21] MEDS: FAMOTIDINE 20 MG/2 ML SYRINGE IVP SCH ×2 (09:33→20:12)
[2019-09-21] MEDS: INSULIN GLARGINE 300 UNIT/3 ML PEN SUBQ SCH ×2 (09:38→20:58)
[2019-09-21] MEDS: cefTRIAXone 2 GM in SODIUM CHLORIDE 0.9% MINIBAG 100 ML IV SCH (09:40)
[2019-09-21] MEDS: AZITHROMYCIN INJ 500 MG in SODIUM CHLORIDE 0.9% 250 ML IV SCH (11:01)
--- NOTE | 2019-09-21 13:12 | PROVIDER PROGRESS NOTE ---
Subjective - Prog Note Date Prog Note Date: 09/21/19 - Subjective Subjective: Reports feeling better today. His nausea has improved and he had no further episodes of vomiting. He still complains of periumbilical abdominal pain. He would like to eat today. Current Medications - Current Medications Current Medications: Active Medications Amlodipine Besylate (Norvasc) 10 mg PO QPM [facility] Carvedilol (Coreg) 12.5 mg PO BID [facility] Last Admin: 09/21/19 09:32 Dose: 12.5 mg Documented by: Clonidine HCl ([id number]) 1 patch TOP Q7D [facility] Last Admin: 09/20/19 13:07 Dose: 1 patch Documented by: Famotidine (Pepcid) 20 mg IVP BID [facility] Last Admin: 09/21/19 09:33 Dose: 20 mg Documented by: Hydralazine HCl (Apresoline) 50 mg PO BID [facility] Last Admin: 09/21/19 09:32 Dose: 50 mg Documented by: Hydromorphone HCl (Dilaudid Inj Syringe) 0.5 mg IVP Q3H PRN PRN Reason: Pain 8 to 10 Last Admin: 09/21/19 06:11 Dose: 0.5 mg Documented by: Potassium Chloride/Dextrose/Sod Cl () 1,000 mls @ 100 mls/hr IV .Q10H [facility] Last Admin: 09/21/19 10:44 Dose: 100 mls/hr Documented by: Ceftriaxone Sodium 2 gm/ (Sodium Chloride) 100 mls @ 200 mls/hr IV DAILY [facility] Last Infusion: 09/21/19 11:07 Dose: Infused Documented by: Insulin Glargine (Lantus Solostar) 8 unit SUBQ BID [facility] Last Admin: 09/21/19 09:38 Dose: 8 unit Documented by: Insulin Human Regular (Humulin R) 1 - 9 unit SUBQ Q6HR [facility]; Protocol Last Admin: 09/21/19 12:47 Dose: 1 unit Documented by: Metoclopramide HCl (Reglan Inj) 5 mg IVP Q6HR [facility] Last Admin: 09/21/19 12:48 Dose: 5 mg Documented by: Ondansetron HCl (Zofran Inj) 4 mg IVP Q6HR PRN PRN Reason: Nausea / Vomiting Last Admin: 09/21/19 06:11 Dose: 4 mg Documented by: Prochlorperazine Edisylate (Compazine Inj) 10 mg IVP Q6HR PRN PRN Reason: Nausea / Vomiting Sodium Chloride (Normal Saline Flush 0.9%) 10 ml IVP PRN PRN PRN Reason: NEEDED PER PROVIDER ORDERS Last Admin: 09/19/19 14:36 Dose: 10 ml Documented by: Sodium Chloride (Normal Saline Flush 0.9%) 10 ml IVP 0100,0900,1700 [facility]UR[facility] Last Admin: 09/21/19 09:39 Dose: Not Given Documented by: Insulin Aspart [Novolog] .CONTINUOUS PUMP 08/12/19 Hydralazine HCl 50 mg PO TID 09/19/19 Objective - Vital Signs/Intake & Output Reviewed Vital Signs: Yes Vital Signs: Vital Signs x48h Temp Pulse Resp BP BP Pulse Ox 09/21/19 07:55 36.9 C 87 16 184/90 H 98 09/21/19 06:29 170/89 H Intake & Output: Intake & Output 09/18/19 09/19/19 09/20/19 09/21/19 23:59 23:59 23:59 23:59 Intake Total 1700 4975.000 1198.333 Output Total 500 Balance 1700 4475.000 1198.333 - Objective General Appearance: positive: No acute distress, Alert Eyes Bilateral: positive: Normal inspection ENT: positive: ENT inspection nml Neck: positive: Nml inspection Respiratory: positive: No respiratory distress. negative: Wheezes, Rales Cardiovascular: positive: Regular rate & rhythm, No murmur, Tachycardia. negative: Systolic murmur Abdomen: positive: Non-tender, No distention. negative: Tenderness Skin: positive: No rash, Warm, Dry Extremities: positive: Full ROM, No pedal edema Neurologic/Psychiatric: positive: Oriented x3, Motor nml. negative: Disoriented to person, Disoriented to place, Disoriented to time - Lab Results Fish Bones: 09/21/19 05:15 09/21/19 05:15 Other Labs: Lab Results x24hrs 09/21/19 09/21/19 09/21/19 Range/Units 05:15 05:15 00:24 WBC 8.5 (4.8-10.8) x10^3/uL RBC 2.67 L (4.70-6.10) 10^6/uL Hgb 7.8 L (14.0-18.0) g/dL Hct 24.8 L (42.0-52.0) % MCV 92.9 (80.0-94.0) fL MCH 29.2 (27.0-31.0) pg MCHC 31.5 L (32.0-36.0) g/dL RDW 13.1 (12.0-15.0) % Plt Count 334 (130-450) 10^3/uL MPV 9.6 (7.4-11.4) fL Neut # (Auto) 6.5 (1.5-6.6) 10^3/uL Lymph # (Auto) 0.9 L (1.5-3.5) 10^3/uL [place] # (Auto) 0.8 (0.0-1.0) 10^3/uL Eos # (Auto) 0.1 (0.0-0.7) 10^3/uL Baso # (Auto) 0.1 (0.0-0.1) 10^3/uL Absolute Nucleated RBC 0.00 x10^3/uL Nucleated RBC % 0.0 /100WBC Sodium 144 (135-145) mmol/L Potassium 3.9 (3.5-5.0) mmol/L Chloride 114 H (101-111) mmol/L Carbon Dioxide 24 (21-32) mmol/L Anion Gap 6.0 (6-13) BUN 30 H (6-20) mg/dL Creatinine 3.4 H (0.6-1.2) mg/dL Estimated GFR (MDRD) 25 L (>89) Glucose 166 H (70-100) mg/dL POC Whole Bld Glucose 150 H (70 - 100) mg/dL Calcium 8.6 (8.5-10.3) mg/dL 09/20/19 09/20/19 09/20/19 Range/Units 20:41 18:03 12:03 WBC (4.8-10.8) x10^3/uL RBC (4.70-6.10) 10^6/uL Hgb (14.0-18.0) g/dL Hct (42.0-52.0) % MCV (80.0-94.0) fL MCH (27.0-31.0) pg MCHC (32.0-36.0) g/dL RDW (12.0-15.0) % Plt Count (130-450) 10^3/uL MPV (7.4-11.4) fL Neut # (Auto) (1.5-6.6) 10^3/uL Lymph # (Auto) (1.5-3.5) 10^3/uL [place] # (Auto) (0.0-1.0) 10^3/uL Eos # (Auto) (0.0-0.7) 10^3/uL Baso # (Auto) (0.0-0.1) 10^3/uL Absolute Nucleated RBC x10^3/uL Nucleated RBC % /100WBC Sodium (135-145) mmol/L Potassium (3.5-5.0) mmol/L Chloride (101-111) mmol/L Carbon Dioxide (21-32) mmol/L Anion Gap (6-13) BUN (6-20) mg/dL Creatinine (0.6-1.2) mg/dL Estimated GFR (MDRD) (>89) Glucose (70-100) mg/dL POC Whole Bld Glucose 176 H 283 H 223 H (70 - 100) mg/dL Calcium (8.5-10.3) mg/dL 09/20/19 09/20/19 09/19/19 Range/Units 06:01 00:00 21:23 WBC (4.8-10.8) x10^3/uL RBC (4.70-6.10) 10^6/uL Hgb (14.0-18.0) g/dL Hct (42.0-52.0) % MCV (80.0-94.0) fL MCH (27.0-31.0) pg MCHC (32.0-36.0) g/dL RDW (12.0-15.0) % Plt Count (130-450) 10^3/uL MPV (7.4-11.4) fL Neut # (Auto) (1.5-6.6) 10^3/uL Lymph # (Auto) (1.5-3.5) 10^3/uL [place] # (Auto) (0.0-1.0) 10^3/uL Eos # (Auto) (0.0-0.7) 10^3/uL Baso # (Auto) (0.0-0.1) 10^3/uL Absolute Nucleated RBC x10^3/uL Nucleated RBC % /100WBC Sodium (135-145) mmol/L Potassium (3.5-5.0) mmol/L Chloride (101-111) mmol/L Carbon Dioxide (21-32) mmol/L Anion Gap (6-13) BUN (6-20) mg/dL Creatinine (0.6-1.2) mg/dL Estimated GFR (MDRD) (>89) Glucose (70-100) mg/dL POC Whole Bld Glucose 239 H 219 H 197 H (70 - 100) mg/dL Calcium (8.5-10.3) mg/dL 09/19/19 09/19/19 Range/Units 16:46 13:30 WBC (4.8-10.8) x10^3/uL RBC (4.70-6.10) 10^6/uL Hgb (14.0-18.0) g/dL Hct (42.0-52.0) % MCV (80.0-94.0) fL MCH (27.0-31.0) pg MCHC (32.0-36.0) g/dL RDW (12.0-15.0) % Plt Count (130-450) 10^3/uL MPV (7.4-11.4) fL Neut # (Auto) (1.5-6.6) 10^3/uL Lymph # (Auto) (1.5-3.5) 10^3/uL [place] # (Auto) (0.0-1.0) 10^3/uL Eos # (Auto) (0.0-0.7) 10^3/uL Baso # (Auto) (0.0-0.1) 10^3/uL Absolute Nucleated RBC x10^3/uL Nucleated RBC % /100WBC Sodium (135-145) mmol/L Potassium (3.5-5.0) mmol/L Chloride (101-111) mmol/L Carbon Dioxide (21-32) mmol/L Anion Gap (6-13) BUN (6-20) mg/dL Creatinine (0.6-1.2) mg/dL Estimated GFR (MDRD) (>89) Glucose (70-100) mg/dL POC Whole Bld Glucose 234 H 243 H (70 - 100) mg/dL Calcium (8.5-10.3) mg/dL ABX Reporting Has patient been on IV antibiotics over the past 48 hours?: Yes Assessment/Plan - Problem List (1) Gastroparesis diabeticorum Impression: Has improved today on scheduled Reglan. Still has nausea but no more vomiting. He would like to try diet and so we will start him on a clear liquid diet as tolerated. Continue with scheduled Reglan and Zofran as needed. (2) Hypertensive urgency Impression: His blood pressures remained elevated with systolics in the 190s on IV hydralazine and metoprolol. He has been started on a clonidine patch. Given his vomiting has resolved and he would like to try a diet, we will start him on his oral medications once again. We will start him on amlodipine 10 mg every evening, hydralazine 50 mg twice daily, carvedilol 12.5 mg twice daily. We will also continue with the clonidine patch. (3) CAP (community acquired pneumonia) Impression: Chest x-ray on admission was concerning for right sided infiltrate. He reports no dyspnea, fever, cough. He has no leukocytosis. He is ready completed 3 days of azithromycin. We will discontinue ceftriaxone and transition him to amoxicillin for 2 more days to complete therapy. Qualifiers: Laterality: right (4) CKD stage 4 due to type 1 diabetes mellitus Impression: His advanced CKD secondary to type 1 diabetes as well as hypertension. His creatinine has been stable at approximately 3.3-3.4 which is his baseline. He will need to continue outpatient follow-up with his net architect. 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 We will continue his home insulin regimen via the insulin pump while he is hospitalized. We will start him on a carb controlled quickly diet and advance as tolerated. business continuity management director has been consulted. (6) Anemia due to multiple mechanisms Impression: Likely due to his chronic kidney disease as well as iron deficiency as prior studies were suggestive of iron deficiency. There is no evidence of bleeding at this time and his hemoglobin is stable. We will continue him on oral iron supplementation. Will need outpatient follow-up with his net architect as he may benefit from erythropoietin.
[2019-09-21] MEDS ORDERED: LABETALOL 20 MG/4 ML SYRINGE IVP PRN (16:42)
[2019-09-21] MEDS ORDERED: INSULIN ASPART 300 UNIT/3 ML PEN SUBQ SCH (21:00)
[2019-09-21] MEDS ORDERED: amLODIPine 5 MG TABLET PO SCH (21:00)
[2019-09-22] MEDS: SODIUM CHLORIDE FLUSH 0.9% 10 ML SYRINGE IVP SCH ×2 (00:16→08:05)
[2019-09-22] MEDS: METOCLOPRAMIDE 10 MG/2 ML VIAL IVP SCH ×2 (00:16→06:36)
[2019-09-22] MEDS: ONDANSETRON 4 MG/2 ML VIAL IVP PRN (03:17)
[2019-09-22] MEDS: HYDROmorphone 0.5 MG/0.5 ML SYRINGE IVP PRN (03:17)
[2019-09-22] MEDS: D5NS W/20 MEQ KCL 1,000 ML IV SCH ×2 (03:38→06:35)
[2019-09-22 05:19] LABS: BASOPHILS # (AUTO) 0.1 10^3/uL (0.0-0.1); BASOPHILS % (AUTO) 0.7 %; EOSINOPHILS # (AUTO) 0.2 10^3/uL (0.0-0.7); EOSINOPHILS % (AUTO) 2.5 %; HGB - HEMOGLOBIN 7.5 g/dL (14.0-18.0); LYMPHOCYTES # (AUTO) 0.9 10^3/uL (1.5-3.5); LYMPHOCYTES % (AUTO) 13.5 %; MEAN CORPUSCULAR HEMOGLOBIN 30.1 pg (27.0-31.0); MEAN CORPUSCULAR HGB CONC 31.8 g/dL (32.0-36.0); MEAN CORPUSCULAR VOLUME 94.8 fL (80.0-94.0); MEAN PLATELET VOLUME 9.6 fL (7.4-11.4); MONOCYTES # (AUTO) 0.9 10^3/uL (0.0-1.0); MONOCYTES % (AUTO) 12.6 %; NEUTROPHILS # (AUTO) 4.7 10^3/uL (1.5-6.6); NEUTROPHILS % (AUTO) 70.1 %; PLT - PLATELET COUNT 304 10^3/uL (130-450); RED BLOOD COUNT 2.49 10^6/uL (4.70-6.10); RED CELL DISTRIBUTION WIDTH 12.9 % (12.0-15.0); WHITE BLOOD COUNT 6.8 x10^3/uL (4.8-10.8)
[2019-09-22 05:33] LABS: CALCIUM 8.2 mg/dL (8.5-10.3); CREATININE 3.3 mg/dL (0.6-1.2); MAGNESIUM 1.7 mg/dL (1.7-2.8); PHOSPHORUS 3.9 mg/dL (2.5-4.6)
[2019-09-22] MEDS ORDERED: INSULIN ASPART 300 UNIT/3 ML PEN SUBQ SCH (08:00)
[2019-09-22] MEDS: hydrALAZINE 25 MG TABLET PO SCH (08:04)
[2019-09-22] MEDS: INSULIN GLARGINE 300 UNIT/3 ML PEN SUBQ SCH (08:04)
[2019-09-22] MEDS: carvediloL 12.5 MG TABLET PO SCH (08:04)
[2019-09-22] MEDS: FAMOTIDINE 20 MG/2 ML SYRINGE IVP SCH (08:05)
[2019-09-22] MEDS ORDERED: polyethylene glycoL 3350 17 GM PACKET PO SCH (09:00)
[2019-09-22] MEDS ORDERED: FERROUS SULFATE 325 MG TABLET PO SCH (09:00)
[2019-09-22] MEDS ORDERED: AMOXICILLIN 250 MG CAPSULE PO SCH (09:00)
--- NOTE | 2019-09-22 11:03 | Discharge Plan ---
Discharge Plan Problem Reviewed?: Yes Disposition: Home, Self Care Condition: Good Prescriptions: Amoxicillin 500 mg PO TID #5 capsule cloNIDine 0.1 MG PATCH [[id number]-[id number]] 1 patch TOP Q7D #4 patch amLODIPine [Norvasc] 10 mg PO QPM #30 tablet Diet: Diabetic Activity Restrictions: Activity as Tolerated Health Concerns: You were seen in the hospital because of your gastroparesis which caused you to have nausea and vomiting. You are treated with Zofran and Reglan which are nausea medications. Your symptoms have improved and you are now tolerating a diet. During this hospitalization, her blood pressures also been elevated. We have resumed your prior medications but have also added a clonidine patch which you can change every week. This will also help control your blood pressure when you have nausea and vomiting and are unable to keep down your medications. Your blood counts have also been on the lower side. This is likely due to your chronic kidney disease. Please continue to take the iron supplementation and follow-up with your apprentice machinist outside as you may need an injection called erythropoietin to help your body produce red blood cells. You are also found to have possible pneumonia on the chest x-ray. You were treated with antibiotics. Please take the amoxicillin as prescribed for 2 more days. Tomorrow will be the last day of therapy. Plan of Treatment: Your medications as previously prescribed. Please also begin to take the clonidine patch on a weekly basis. Care Goals: Please also continue with small frequent meals for your gastroparesis. You can continue with the insulin pump as you were previously using. Is recommended you follow-up with your cardiopulmonary technologist and a extension educator on outpatient b asis. Assessment: Patient expressed understanding of the treatment plan. Additional Instructions or Follow Up instructions: Please follow-up with your primary care physician within 1 week. No Smoking: If you smoke, Please STOP! Call for help. Follow-up with: CYNDY MARTINEZ MD [Primary Care Provider] -
--- NOTE | 2019-09-22 11:20 | DISCHARGE SUMMARY ---
"Discharge Summary Admit Date: 09/19/19 Discharge Date: 09/22/19 Discharging Provider: Michael Thacker Primary Care Provider: Roxanne Johnson Code Status: Attempt Resuscitation Condition at Discharge: Good Discharge Disposition: 01 Home, Self Care - DIAGNOSES Admission Diagnoses: Nausea and vomiting Diabetic gastroparesis Type 1 diabetes on insulin pump Community-acquired pneumonia Diabetes with stage IV CKD Hypertensive urgency Anemia of chronic disease Discharge Diagnoses with Status of Each Condition: Diabetic gastroparesis - stable. Treated with Reglan IV and Zofran as needed during his hospitalization. Now tolerating a diet. Discussed small frequent meals and to follow-up with his die developer. He will continue his home Reglan as needed. Hypertensive urgency - resolved. Has improved and has ranged from 130s to 170 systolic. He has resumed his home amlodipine, hydralazine, carvedilol. We have also added a clonidine patch this hospitalization which will be continued so that when he does have nausea vomiting gastroparesis, he can continue to use the clonidine patch. Community-acquired pneumonia - improving. Is evident on chest x-ray on admission. Treated with ceftriaxone for 3 days and azithromycin for 3 days. Transition to amoxicillin which she will continue for 2 more days to complete 5 days of therapy. He has been afebrile with no leukocytosis, dyspnea, hypoxia during this hospitalization. CKD stage IV due to type 1 diabetes mellitus - stable. Creatinine remained stable at his baseline of 3.3. He will continue outpatient follow-up with his mold filler. Type 1 diabetes mellitus with complication with long-term use of insulin pump - stable. He was evaluated by life educator during his hospitalization. He will continue outpatient follow-up with his sugar grinder and life educator. Anemia due to multiple mechanisms - stable. Hemoglobin trended down from 8.1 to 7.5 during this hospitalization. This decreases likely due to hemodilution as well as frequent lab draws. There is no evidence of bleeding. Prior iron studies were suggestive of iron deficiency anemia and so he was continued on his oral ferrous sulfate. He was asked to follow-up with his mold filler to discuss erythropoietin. His baseline over the last 2 months appears to be around 8-9. - HPI History of Present Illness: H&P per Dr. Salazar on 09/19/19: This is a 39-year-old black male with a history of insulin-dependent diabetes, diagnosed with diabetic gastroparesis about a month ago, has chronic renal insufficiency and is followed by mold filler, has creatinines that are 3-3.5. He carries a diagnosis of anemia of chronic disease. He used to be a cannabis user, but has denied this use in over a year. He was just here 1 month ago with hypertensive urgency related to not being able to keep his blood pressure medicines and, as of nausea and vomiting from diabetic gastroparesis. Patient presents now with a similar problem of nausea and vomiting x2 days, unable to keep his medicines down. He is found to have a blood pressure of 220/116, was tachycardic. He was given a blood pressure management ER antiemetics and blood pressures improved to 180/101. The other work-up in the ER shows that he is a creatinine of 3.5 and a probable community-acquired pneumonia by chest x-ray. He is being admitted for management of a diabetic gastroparesis, dehydration, community-acquired pneumonia. - CONSULTS | PROCEDURES Consultations: Form Building Supervisor - HOSPITAL COURSE Hospital Course: Admitted to the floor for hypertensive urgency and nausea vomiting secondary to diabetic gastroparesis. He was started on scheduled Reglan for nausea and vomiting as well as Zofran as needed. He was made n.p.o. and started on D5 and half-normal for hydration. For his hypertension, he was started on scheduled hydralazine IV and clonidine patch. He was started on ceftriaxone azithromycin for community-acquired pneumonia. Nausea and vomiting improved over the first 48 hours and he was started on a clear liquid diet. He was transitioned to oral antihypertensives including his home amlodipine, hydralazine, carvedilol. He was continued on the clonidine patch. He was transitioned to oral amoxicillin after he completed 3 days of ceftriaxone IV and completed 3 days of azithromycin IV. His renal function remained stable during his hospitalization with a creatinine of approximately 3.3-3.5. His hemoglobin has trended down to 7.6 but there is been no evidence of bleeding. It is felt this is likely due to iron deficiency as well as chronic kidney disease. He was resumed on his home ferrous sulfate and he was asked to follow-up with his mold filler to discuss erythropoietin. He was managed able to tolerate a diet and was discharged home in good condition. - ALLERGIES Allergies/Adverse Reactions: Allergies Allergy/AdvReac Type Severity Reaction Status Date / Time No Known Drug Allergies Allergy Verified 09/19/19 09:08 - MEDICATIONS Home Medications: Ambulatory Orders Medication Instructions Recorded Confirmed Insulin Aspart [Novolog] .CONTINUOUS PUMP 08/12/19 Ferrous Sulfate 325 mg PO DAILY #30 tablet 08/15/19 09/19/19 Pantoprazole [Protonix] 40 mg PO QDAC #30 tablet 08/15/19 09/19/19 carvediloL [Coreg] 12.5 mg PO BID #60 tablet 08/15/19 09/19/19 Metoclopramide [Reglan] 10 mg PO Q6H PRN #14 tablet 08/16/19 09/19/19 Hydralazine HCl 50 mg PO TID 09/19/19 09/19/19 Amoxicillin 500 mg PO TID #5 capsule 09/22/19 amLODIPine [Norvasc] 10 mg PO QPM #30 tablet 09/22/19 cloNIDine 0.1 MG PATCH 1 patch TOP Q7D #4 patch 09/22/19 [[id number]] - PHYSICAL EXAM AT DISCHARGE General Appearance: positive: No acute distress, Alert Eyes Bilateral: positive: Normal inspection ENT: positive: ENT inspection nml Neck: positive: Nml inspection Respiratory: positive: No respiratory distress. negative: Wheezes, Rales Cardiovascular: positive: Regular rate & rhythm, No murmur. negative: Tachycardia, Bradycardia Abdomen: positive: Non-tender, No distention. negative: Tenderness, Guarding, Rebound Skin: positive: Warm, Dry Extremities: positive: Full ROM, No pedal edema Neurologic/Psychiatric: positive: Oriented x3, Motor nml. negative: Disoriented to person, Disoriented to place, Disoriented to time Physical Exam Other/Comments: Vital Signs - 24 hr 09/21/19 09/21/19 09/21/19 16:15 20:05 20:54 Temperature 36.3 C L Heart Rate [ 89 98 Brachial] Heart Rate [ Monitoring electrodes] Respiratory 18 Rate Blood Pressure 191/99 H 198/98 H 189/95 H [Right Brachial artery] O2 Saturation 94 09/21/19 09/21/19 09/22/19 20:56 22:15 00:05 Temperature 37.2 C 36.8 C Heart Rate [ 93 90 Brachial] Heart Rate [ Monitoring electrodes] Respiratory 18 16 Rate Blood Pressure 155/78 H 133/65 H [Right Brachial artery] O2 Saturation 93 95 09/22/19 09/22/19 09/22/19 05:45 08:15 12:00 Temperature 36.7 C 36.8 C 36.9 C Heart Rate [ 89 87 Brachial] Heart Rate [ 94 Monitoring electrodes] Respiratory 16 18 16 Rate Blood Pressure 170/89 H 181/85 H 178/91 H [Right Brachial artery] O2 Saturation 96 95 94 Oxygen O2 Source Room air - LABS Result Diagrams: 09/22/19 04:50 09/22/19 04:50 Other Lab Results: Laboratory Results - last 24 hr 09/21/19 09/21/19 09/21/19 11:48 17:09 20:49 WBC RBC Hgb Hct MCV MCH MCHC RDW Plt Count MPV Neut # (Auto) Lymph # (Auto) [place] # (Auto) Eos # (Auto) Baso # (Auto) Absolute Nucleated RBC Nucleated RBC % Sodium Potassium Chloride Carbon Dioxide Anion Gap BUN Creatinine Estimated GFR (MDRD) Glucose POC Whole Bld Glucose 155 H 196 H 193 H Calcium Phosphorus Magnesium 09/22/19 09/22/19 09/22/19 04:50 04:50 07:35 WBC 6.8 RBC 2.49 L Hgb 7.5 L Hct 23.6 L MCV 94.8 H MCH 30.1 MCHC 31.8 L RDW 12.9 Plt Count 304 MPV 9.6 Neut # (Auto) 4.7 Lymph # (Auto) 0.9 L [place] # (Auto) 0.9 Eos # (Auto) 0.2 Baso # (Auto) 0.1 Absolute Nucleated RBC 0.00 Nucleated RBC % 0.0 Sodium 141 Potassium 4.0 Chloride 113 H Carbon Dioxide 23 Anion Gap 5.0 L BUN 25 H Creatinine 3.3 H Estimated GFR (MDRD) 25 L Glucose 203 H POC Whole Bld Glucose 172 H Calcium 8.2 L Phosphorus 3.9 Magnesium 1.7 - FOLLOW UP Follow Up: He was asked to follow-up with his primary care provider within 1 week. He was also asked to follow-up with his mold filler given his anemia and to monitor his renal function. He was also asked to follow-up with his die developer given his gastroparesis. - TIME SPENT Time Spent in Discharge (Minutes): 32"
[2019-09-22 12:01] VITALS: BP 178/91
== END 2019-09-22 12:03 | disposition home or self-care (01) | DRG 73 ==
LOC: ED 08:58 → MS2 11:43
PROVIDERS: ADMIT Internal Medicine; ATTEND Internal Medicine
DX: E10.43 Type 1 diabetes mellitus with diabetic autonomic (poly)neuropathy (principal); J18.9 Pneumonia, unspecified organism; N18.4 Chronic kidney disease, stage 4 (severe); E10.22 Type 1 diabetes mellitus with diabetic chronic kidney disease; I12.9 Hypertensive chronic kidney disease with stage 1 through stage 4 chronic kidney disease, or unspecified chronic kidney disease; K31.84 Gastroparesis; I16.0 Hypertensive urgency; Z96.41 Presence of insulin pump (external) (internal); E86.0 Dehydration; D63.1 Anemia in chronic kidney disease; D50.9 Iron deficiency anemia, unspecified; Z79.4 Long term (current) use of insulin
CPT/HCPCS: 36415; 71045; 80048; 80053; 82009; 82803; 83036; 83605; 83690; 83735; 84100; 84484; 85025; 93005; 96361; 96365; 96367; 96375; 99284; 99285; A9270; J1170; J1815; J2765

== ENCOUNTER 2019-11-06 16:10 | Outpatient (CLI) | payer OTHER ==
[2019-11-06 16:52] LABS: HB2 TOTAL 7.7 g/dL; HEMOGLOBIN A1C 0.46 g/dL; HEMOGLOBIN A1C % 7.6 % (4.6-6.2)
[2019-11-06 17:04] LABS: CALCIUM 8.4 mg/dL (8.5-10.3); CREATININE 4.1 mg/dL (0.6-1.2)
== END 2019-11-06 16:11 | disposition home or self-care (01) ==
LOC: LAB 16:10
PROVIDERS: ATTEND Internal Medicine
DX: E87.5 Hyperkalemia (principal); N18.3 Chronic kidney disease, stage 3 (moderate)
CPT/HCPCS: 80048; 82728; 83036; 83540; 84466

== ENCOUNTER 2020-02-26 04:00 | Emergency (ER) | payer OTHER ==
--- NOTE | 2020-02-26 04:10 | ED Physician Documentation ---
PD HPI NVD - Stated complaint Stated Complaint: N/V - History obtained from History obtained from: Patient - History of Present Illness Timing - onset: How many days ago (2) Timing - duration: Days (2) Timing - details: Abrupt onset (soon after eating chili, but not directly while eating. He does not feel that food is stuck.), Still present, Waxing and waning Associated symptoms: Abdominal pain (epigastric area, cramping), Loss of appetite. No: Fever, Chest pain, Hematemesis, Near syncope / syncope Contributing factors: No: Sick contact, Bad food (onset shortly after eating some chili, but did not think it was old/bad per se.) Improved by: No: Vomiting Worsened by: Eating Similar symptoms before: Diagnosis (diabetic gastroparesis. Also history of gastritis, and takes Protonix. Has had infrequent ER visits for similar episodes, with records here showing treat/discharge at times and admission once. He says he is due to start dialysis today in [place].) Recently seen: Clinic (by his public health clinical nurse specialist in [place], preceding start of dialysis. Had Broviac placed recently for use in this.) Review of Systems Constitutional: reports: Fatigue. denies: Fever, Chills, Myalgias Nose: denies: Rhinorrhea / runny nose, Congestion Throat: denies: Sore throat Cardiac: denies: Chest pain / pressure Respiratory: denies: Cough GI: reports: Abdominal Pain, Nausea, Vomiting (with minimal intake fluids the past day, vomiting when he does. And had not had usual meds for same reason.). denies: Abdominal Swelling, Constipation, Diarrhea, Hematemesis : reports: Other (minimal urine output chronically) PD PAST MEDICAL HISTORY - Past Medical History Cardiovascular: High cholesterol, Hypertension Respiratory: None Endocrine/Autoimmune: Type 1 diabetes (with neuropathy, kidney failure (from diabetes and HTN), and episodes gastroparesis. ) GI: GERD, Ulcers : Dialysis (starting first session later this morning. ), Renal insuffiency HEENT: None Psych: Depression, Post traumatic stress disorder Derm: None - Past Surgical History Past Surgical History: No General: Appendectomy - Present Medications Home Medications: Ambulatory Orders Medication Instructions Recorded Confirmed Insulin Aspart [Novolog] .CONTINUOUS PUMP 08/12/19 Ferrous Sulfate 325 mg PO DAILY #30 tablet 08/15/19 09/19/19 Pantoprazole [Protonix] 40 mg PO QDAC #30 tablet 08/15/19 09/19/19 carvediloL [Coreg] 12.5 mg PO BID #60 tablet 08/15/19 09/19/19 Metoclopramide [Reglan] 10 mg PO Q6H PRN #14 tablet 08/16/19 09/19/19 Hydralazine HCl 50 mg PO TID 09/19/19 09/19/19 Amoxicillin 500 mg PO TID #5 capsule 09/22/19 amLODIPine [Norvasc] 10 mg PO QPM #30 tablet 09/22/19 cloNIDine 0.1 MG PATCH 1 patch TOP Q7D #4 patch 09/22/19 [[id number]] Furosemide [Lasix] 40 mg PO DAILY 02/26/20 02/26/20 Ondansetron Odt [Zofran] 4 mg TL Q6H PRN #15 tablet 02/26/20 oxyCODONE [Roxicodone] 5 mg PO Q4-6H PRN #12 tablet 02/26/20 - Allergies Allergies/Adverse Reactions: Allergies Allergy/AdvReac Type Severity Reaction Status Date / Time No Known Drug Allergies Allergy Verified 09/19/19 09:08 - Living Situation Living Arrangement: reports: At home - Social History Does the pt smoke?: No Smoking Status: Never smoker Does the pt drink ETOH?: No Does the pt have substance abuse?: No - Immunizations Immunizations are current?: Yes - POLST Patient has POLST: No PD ED PE NORMAL - Vitals Vital signs reviewed: Yes (BP elevated, and HR high but not tachycardic. ) - General General: Alert and oriented X 3, Well developed/nourished, Other (appears uncomfortable. Intermittent gagging and dry heaving during initial H&P. ) - Cardiac Cardiac: RRR, No murmur - Respiratory Respiratory: Clear bilaterally, Other (right chest wall with central line/Broviac type for dialysis. ) - Abdomen Abdomen: Normal bowel sounds, Soft, Non distended, No organomegaly, Other (tender epigastric area with mild guarding. No percussion nor rebound tenderness. RUQ not tender directly. ) - Back Back: No CVA TTP - Derm Derm: Normal color, Warm and dry - Extremities Extremities: No edema, No calf tenderness / cord - Neuro Neuro: Alert and oriented X 3, No motor deficit, Normal speech Results - Vitals Vitals: Vital Signs - 24 hr 02/26/20 02/26/20 02/26/20 04:05 04:18 04:44 Temperature 36.7 C 36.7 C 36.7 C Heart Rate 100 100 101 H Respiratory 16 18 20 Rate Blood Pressure 142/109 H 142/109 H 212/127 H O2 Saturation 100 100 100 02/26/20 02/26/20 02/26/20 04:49 04:54 04:57 Temperature 36.7 C 36.7 C 36.7 C Heart Rate 103 H 104 H 104 H Respiratory 16 15 16 Rate Blood Pressure 206/118 H 210/130 H 213/138 H O2 Saturation 100 100 100 02/26/20 02/26/20 02/26/20 05:03 05:19 05:34 Temperature 36.7 C 36.7 C 36.7 C Heart Rate 103 H 101 H 103 H Respiratory 13 15 18 Rate Blood Pressure 207/129 H 194/121 H 202/118 H O2 Saturation 100 100 100 02/26/20 02/26/20 06:04 06:12 Temperature 36.7 C 36.7 C Heart Rate 94 91 Respiratory 15 18 Rate Blood Pressure 199/124 H 208/118 H O2 Saturation 100 100 Oxygen O2 Source Nasal cannula - Labs Labs: Laboratory Tests 02/26/20 02/26/20 02/26/20 04:14 04:18 04:18 WBC 6.3 RBC 4.15 L Hgb 12.4 L Hct 36.1 L MCV 87.0 MCH 29.9 MCHC 34.3 RDW 13.2 Plt Count 402 MPV 9.5 Neut # (Auto) 5.3 Lymph # (Auto) 0.7 L [place] # (Auto) 0.2 Eos # (Auto) 0.0 Baso # (Auto) 0.0 Absolute Nucleated RBC 0.00 Nucleated RBC % 0.0 Sodium 141 Potassium 4.0 Chloride 108 Carbon Dioxide 17 L Anion Gap 16.0 H BUN 49 H Creatinine 5.3 H Estimated GFR (MDRD) 15 L Glucose 153 H POC Whole Bld Glucose 154 H Calcium 9.5 Magnesium 1.5 L Total Bilirubin 1.3 H AST 16 ALT 18 Alkaline Phosphatase 89 Total Protein 8.3 H Albumin 3.6 Globulin 4.7 H Albumin/Globulin Ratio 0.8 L Lipase 16 L Serum Ketones NEGATIVE PD MEDICAL DECISION MAKING - ED course Complexity details: reviewed old records (Visits here for similar with once or twice being able to be treated and released and wants being hospitalized. It seemed related to diabetic gastroparesis.), reviewed results (Lytes are good. Creatinine is elevated but he is due for dialysis today. ), re-evaluated patient (His pain is improved and his nausea has decreased significantly to where he is taking sips of water here and also had Mylanta. He is feeling more comfortable. He does feel able to be discharged with oral medicines to try at home.), considered differential (Had nausea and vomiting 2 days ago that has continued. He is having upper abdominal discomfort. No history of gallbladder nor pancreas problems. Does have significant history of diabetes with kidney failure and neuropathy and gastroparesis episodes. Denies history of cannabis.), d/w patient Departure - Departure Disposition: Home, Self Care Clinical Impression: Gastroparesis diabeticorum Gastritis Qualifiers: Gastritis type: unspecified gastritis Chronicity: acute Gastritis bleeding: without bleeding Qualified Code(s): K29.00 - Acute gastritis without bleeding Nausea & vomiting Qualifiers: Vomiting type: unspecified Vomiting Intractability: intractable Qualified Code(s): R11.2 - Nausea with vomiting, unspecified Condition: Stable Record reviewed to determine appropriate education?: Yes Instructions: ED Nausea Vomiting Follow-Up: CYNDY MARTINEZ MD [Primary Care Provider] - Prescriptions: oxyCODONE [Roxicodone] 5 mg PO Q4-6H PRN #12 tablet PRN Reason: Pain Ondansetron Odt [Zofran] 4 mg TL Q6H PRN #15 tablet PRN Reason: Nausea / Vomiting Comments: Current fluids and bland food through the course today and into tomorrow. Use ondansetron if needed for nausea and Tylenol or oxycodone if needed for pain. Add antacid such as Maalox or Mylanta if needed as well. Continue your usual medications including the Protonix. Follow-up with dialysis today as planned. Return if not maintaining well with oral medications. Particularly good if you can make dialysis today though.
[2020-02-26 04:33] LABS: BASOPHILS % (AUTO) 0.6 %; EOSINOPHILS % (AUTO) 0.6 %; HGB - HEMOGLOBIN 12.4 g/dL (14.0-18.0); LYMPHOCYTES # (AUTO) 0.7 10^3/uL (1.5-3.5); LYMPHOCYTES % (AUTO) 10.9 %; MEAN CORPUSCULAR HEMOGLOBIN 29.9 pg (27.0-31.0); MEAN CORPUSCULAR HGB CONC 34.3 g/dL (32.0-36.0); MEAN PLATELET VOLUME 9.5 fL (7.4-11.4); MONOCYTES # (AUTO) 0.2 10^3/uL (0.0-1.0); MONOCYTES % (AUTO) 2.9 %; NEUTROPHILS # (AUTO) 5.3 10^3/uL (1.5-6.6); NEUTROPHILS % (AUTO) 84.8 %; PLT - PLATELET COUNT 402 10^3/uL (130-450); RED BLOOD COUNT 4.15 10^6/uL (4.70-6.10); RED CELL DISTRIBUTION WIDTH 13.2 % (12.0-15.0); WHITE BLOOD COUNT 6.3 x10^3/uL (4.8-10.8)
[2020-02-26] MEDS: FAMOTIDINE 20 MG/2 ML VIAL IVP STA (04:33)
[2020-02-26] MEDS: hydrALAZINE INJ 20 MG/ML VIAL IVP STA (04:33)
[2020-02-26] MEDS: METOCLOPRAMIDE 10 MG/2 ML VIAL IVP STA (04:33)
[2020-02-26] MEDS: SODIUM CHLORIDE 0.9% 1,000 ML IV STA (04:34)
[2020-02-26] MEDS: MORPHINE 10 MG/ML VIAL IVP STA (04:34)
[2020-02-26 04:36] LABS: KETONES, SERUM (ACETEST) NEGATIVE (NEGATIVE)
[2020-02-26] MEDS ORDERED: MORPHINE 2 MG/ML CARPUJECT ONE (04:39)
[2020-02-26 04:42] LABS: ALBUMIN 3.6 g/dL (3.2-5.5); ALBUMIN/GLOBULIN RATIO 0.8 (1.0-2.2); ALKALINE PHOSPHATASE 89 IU/L (42-121); ALT ALANINE AMINOTRANSFERASE 18 IU/L (10-60); AST ASPARTATE AMINOTRANSFERASE 16 IU/L (10-42); BILIRUBIN,TOTAL 1.3 mg/dL (0.2-1.0); BUN - BLOOD UREA NITROGEN 49 mg/dL (6-20); CALCIUM 9.5 mg/dL (8.5-10.3); CARBON DIOXIDE - CO2 17 mmol/L (21-32); CHLORIDE 108 mmol/L (101-111); CREATININE 5.3 mg/dL (0.6-1.2); GLUCOSE 153 mg/dL (70-100); LIPASE 16 U/L (22-51); MAGNESIUM 1.5 mg/dL (1.7-2.8); SODIUM 141 mmol/L (135-145); TOTAL PROTEIN 8.3 g/dL (6.7-8.2)
[2020-02-26] MEDS: ONDANSETRON 4 MG/2 ML VIAL IVP STA (05:00)
[2020-02-26] MEDS: METOPROLOL 5 MG/5 ML VIAL IVP STA (05:59)
[2020-02-26] MEDS: MORPHINE 2 MG/ML CARPUJECT IVP STA (06:09)
[2020-02-26] MEDS: MAG HYDROX/AL HYDROX/SIMETH 30 ML UDC PO STA (06:19)
[2020-02-26] MEDS: oxyCODONE/ACET 5/325 Prepack 4 PO STA (06:41)
[2020-02-26] MEDS: ONDANSETRON ODT 4 MG Prepack 2 TL PRN (06:41)
[2020-02-26 06:56] VITALS: BP 181/102
== END 2020-02-26 07:04 | disposition home or self-care (01) ==
LOC: ED 04:00
DX: E10.43 Type 1 diabetes mellitus with diabetic autonomic (poly)neuropathy (principal); K31.84 Gastroparesis; K29.00 Acute gastritis without bleeding; E10.40 Type 1 diabetes mellitus with diabetic neuropathy, unspecified; E10.22 Type 1 diabetes mellitus with diabetic chronic kidney disease; I12.0 Hypertensive chronic kidney disease with stage 5 chronic kidney disease or end stage renal disease; N18.6 End stage renal disease; Z99.2 Dependence on renal dialysis; Z79.4 Long term (current) use of insulin
CPT/HCPCS: 36415; 80053; 82009; 83690; 83735; 85025; 96374; 96375; 96376; 99284; 99285; A9270; J2765

== ENCOUNTER 2020-03-04 17:07 | Emergency (ER) | payer OTHER ==
[2020-03-04] MEDS ORDERED: SODIUM CHLORIDE 0.9% 1,000 ML IV STA (17:57)
[2020-03-04 18:25] LABS: BASOPHILS % (AUTO) 0.4 %; EOSINOPHILS # (AUTO) 0.1 10^3/uL (0.0-0.7); EOSINOPHILS % (AUTO) 0.8 %; HGB - HEMOGLOBIN 12.8 g/dL (14.0-18.0); LYMPHOCYTES # (AUTO) 0.9 10^3/uL (1.5-3.5); LYMPHOCYTES % (AUTO) 9.6 %; MEAN CORPUSCULAR HEMOGLOBIN 29.4 pg (27.0-31.0); MEAN CORPUSCULAR VOLUME 86.2 fL (80.0-94.0); MEAN PLATELET VOLUME 9.5 fL (7.4-11.4); MONOCYTES # (AUTO) 0.4 10^3/uL (0.0-1.0); MONOCYTES % (AUTO) 4.5 %; NEUTROPHILS # (AUTO) 7.7 10^3/uL (1.5-6.6); NEUTROPHILS % (AUTO) 84.3 %; PLT - PLATELET COUNT 466 10^3/uL (130-450); RED BLOOD COUNT 4.36 10^6/uL (4.70-6.10); RED CELL DISTRIBUTION WIDTH 13.8 % (12.0-15.0); WHITE BLOOD COUNT 9.2 x10^3/uL (4.8-10.8)
[2020-03-04] MEDS ORDERED: ONDANSETRON 4 MG/2 ML VIAL IVP STA (18:26)
[2020-03-04] MEDS ORDERED: PANTOPRAZOLE 40 MG VIAL IV STA (18:26)
[2020-03-04] MEDS ORDERED: HYDROmorphone 1 MG/ML CARPUJECT IVP STA (18:36)
--- NOTE | 2020-03-04 18:37 | ED Physician Documentation ---
History of Present Illness - Stated complaint Stated Complaint: VOM BLOOD/POST DIALYSIS - Chief complaint Chief Complaint: Abd Pain - History obtained from History obtained from: Patient - Additonal information Additional information: 39-year-old gentleman presents to the emergency department with acute onset of vomiting and hemataemesis. This gentleman does have a history of diabetes as well as end-stage renal disease. He just started dialysis within the last week. This afternoon he was at dialysis but it was cut short as be he began to vomit uncontrollably with some bright red blood as well as coffee-ground emesis. He denies any previous history of GI bleed. He reports that he had a normal bowel movement this morning. He denies any melena or hematochezia. He reports that his abdomen hurts. he denies Chest pain or sob. He deneis any recent cough or fevers Review of Systems Constitutional: denies: Fever, Chills Eyes: reports: Reviewed and negative Ears: reports: Reviewed and negative Nose: reports: Reviewed and negative Throat: reports: Reviewed and negative Cardiac: reports: Chest pain / pressure. denies: Palpitations, Pedal edema, Calf pain Respiratory: denies: Dyspnea, Cough, Hemoptysis GI: reports: Abdominal Pain, Nausea, Vomiting, Hematemesis. denies: Abdominal Swelling, Constipation, Diarrhea, Bloody / black stool : denies: Dysuria, Frequency, Hesitancy Skin: reports: Reviewed and negative Musculoskeletal: reports: Reviewed and negative PD PAST MEDICAL HISTORY - Past Medical History Past Medical History: Yes Cardiovascular: High cholesterol, Hypertension Respiratory: None Neuro: None Endocrine/Autoimmune: Type 1 diabetes GI: GERD, Ulcers : Dialysis, Renal insuffiency HEENT: None Psych: Depression, Post traumatic stress disorder Musculoskeletal: None Derm: None - Past Surgical History Past Surgical History: No General: Appendectomy - Present Medications Home Medications: Ambulatory Orders Medication Instructions Recorded Confirmed Insulin Aspart [Novolog] .CONTINUOUS PUMP 08/12/19 Ferrous Sulfate 325 mg PO DAILY #30 tablet 08/15/19 03/04/20 Pantoprazole [Protonix] 40 mg PO QDAC #30 tablet 08/15/19 03/04/20 carvediloL [Coreg] 12.5 mg PO BID #60 tablet 08/15/19 03/04/20 Metoclopramide [Reglan] 10 mg PO Q6H PRN #14 tablet 08/16/19 03/04/20 Hydralazine HCl 50 mg PO TID 09/19/19 03/04/20 Amoxicillin 500 mg PO TID #5 capsule 09/22/19 03/04/20 amLODIPine [Norvasc] 10 mg PO QPM #30 tablet 09/22/19 03/04/20 cloNIDine 0.1 MG PATCH 1 patch TOP Q7D #4 patch 09/22/19 03/04/20 [[id number]] Furosemide [Lasix] 40 mg PO DAILY 02/26/20 03/04/20 Ondansetron Odt [Zofran] 4 mg TL Q6H PRN #15 tablet 02/26/20 03/04/20 oxyCODONE [Roxicodone] 5 mg PO Q4-6H PRN #12 tablet 02/26/20 03/04/20 - Allergies Allergies/Adverse Reactions: Allergies Allergy/AdvReac Type Severity Reaction Status Date / Time No Known Drug Allergies Allergy Verified 03/04/20 17:30 - Social History Does the pt smoke?: No Smoking Status: Never smoker Does the pt drink ETOH?: No Does the pt have substance abuse?: No - Immunizations Immunizations are current?: Yes - POLST Patient has POLST: No PD ED PE EXPANDED - General General: Alert, In Pain, In distress - HEENT HEENT: PERRL - Neck Neck: Supple w/out meningeal sx, No tenderness - Cardiac Cardiac: Regular Rate, Regular Rhythm, Radial strong equal, Pedal strong equal, Cap refill < 2 sec, Other (Vas-Cath seen exiting from the right chest.) - Respiratory Respiratory: Clear to ausultation zeina. No: Distress, Labored - Abdomen Abdomen: Normal Bowel sounds, Tender to palpation (Diffuse nonfocal abdominal tenderness.). No: Rebound, Guarding - Back Back: Normal exam, Soft tissue tenderness - Extremities Extremities: Normal. No: Deformity, Tenderness - Neuro Neuro: Alert and Oriented X 3, CNII-XII intact - GCS Eye Opening: Spontaneous Motor: Obeys Commands Verbal: Oriented Total: 15 Results - Vitals Vitals: Vital Signs - 24 hr 03/04/20 03/04/20 03/04/20 17:27 19:00 19:44 Temperature 36.1 C L 36.1 C L 36.1 C L Heart Rate 111 H 102 H 101 H Respiratory 22 11 L 13 Rate Blood Pressure 169/130 H 226/132 H 225/128 H O2 Saturation 100 100 100 03/04/20 03/04/20 03/04/20 19:50 19:54 20:00 Temperature 36.1 C L 36.1 C L 36.1 C L Heart Rate 100 101 H 102 H Respiratory 13 18 13 Rate Blood Pressure 215/115 H 194/114 H 193/128 H O2 Saturation 100 100 100 03/04/20 03/04/20 03/04/20 20:12 20:19 20:25 Temperature 36.1 C L 36.1 C L 36.1 C L Heart Rate 100 101 H 102 H Respiratory 14 15 13 Rate Blood Pressure 193/122 H 198/117 H 190/110 H O2 Saturation 100 100 100 03/04/20 03/04/20 03/04/20 20:32 20:35 20:43 Temperature 36.1 C L 36.1 C L 36.1 C L Heart Rate 105 H 105 H 103 H Respiratory 20 15 20 Rate Blood Pressure 187/104 H 193/103 H 192/103 H O2 Saturation 100 100 100 03/04/20 03/04/20 03/04/20 20:51 21:08 21:35 Temperature 36.1 C L 36.1 C L 36.1 C L Heart Rate 105 H 105 H 101 H Respiratory 18 19 15 Rate Blood Pressure 182/104 H 182/104 H 197/105 H O2 Saturation 100 100 100 Oxygen O2 Source Room air - EKG (time done) 1845 Rate: Rate (enter#) (98) Rhythm: NSR Intervals: Normal IN, Prolonged QT QRS: LVH Ischemia: Non specific changes (Anterior ST elevation V4. Questionable LVH) Compare to prior EKG: Unchanged from prior EKG Computer interpretation: Agree with computer - Labs Labs: Laboratory Tests 03/04/20 03/04/20 03/04/20 18:10 18:10 18:10 WBC 9.2 RBC 4.36 L Hgb 12.8 L Hct 37.6 L MCV 86.2 MCH 29.4 MCHC 34.0 RDW 13.8 Plt Count 466 H MPV 9.5 Neut # (Auto) 7.7 H Lymph # (Auto) 0.9 L [place] # (Auto) 0.4 Eos # (Auto) 0.1 Baso # (Auto) 0.0 Absolute Nucleated RBC 0.00 Nucleated RBC % 0.0 PT INR Sodium 133 L Potassium 3.8 Chloride 92 L Carbon Dioxide 24 Anion Gap 17.0 H BUN 23 H Creatinine 3.0 H Estimated GFR (MDRD) 28 L Glucose 381 H POC Whole Bld Glucose Lactic Acid Calcium 9.5 Total Bilirubin 1.1 H AST 16 ALT 19 Alkaline Phosphatase 94 Troponin I High Sens Total Protein 8.0 Albumin 3.5 Globulin 4.5 H Albumin/Globulin Ratio 0.8 L Lipase 21 L Nasal Adenovirus (PCR) Nasal B. parapertussis DNA (PCR) Nasal Coronavir 229E PCR Nasal Coronavir HKU1 PCR Nasal Coronavir NL63 PCR Nasal Coronavir OC43 PCR Nasal Enterovir/Rhinovir PCR Nasal Influenza B PCR Nasal Influenza A PCR Nasal Parainfluen 1 PCR Nasal Parainfluen 2 PCR Nasal Parainfluen 3 PCR Nasal Parainfluen 4 PCR Nasal RSV (PCR) Nasal B.pertussis DNA PCR Nasal C.pneumoniae (PCR) Jakub Human Metapneumo PCR Nasal M.pneumoniae (PCR) Nasal SARS-CoV-2 (PCR) Serum Ketones Blood Type O POSITIVE Antibody Screen NEGATIVE 03/04/20 03/04/20 03/04/20 18:10 18:10 18:10 WBC RBC Hgb Hct MCV MCH MCHC RDW Plt Count MPV Neut # (Auto) Lymph # (Auto) [place] # (Auto) Eos # (Auto) Baso # (Auto) Absolute Nucleated RBC Nucleated RBC % PT 12.4 INR 1.1 Sodium Potassium Chloride Carbon Dioxide Anion Gap BUN Creatinine Estimated GFR (MDRD) Glucose POC Whole Bld Glucose Lactic Acid 2.2 Calcium Total Bilirubin AST ALT Alkaline Phosphatase Troponin I High Sens 24.0 H* Total Protein Albumin Globulin Albumin/Globulin Ratio Lipase Nasal Adenovirus (PCR) Nasal B. parapertussis DNA (PCR) Nasal Coronavir 229E PCR Nasal Coronavir HKU1 PCR Nasal Coronavir NL63 PCR Nasal Coronavir OC43 PCR Nasal Enterovir/Rhinovir PCR Nasal Influenza B PCR Nasal Influenza A PCR Nasal Parainfluen 1 PCR Nasal Parainfluen 2 PCR Nasal Parainfluen 3 PCR Nasal Parainfluen 4 PCR Nasal RSV (PCR) Nasal B.pertussis DNA PCR Nasal C.pneumoniae (PCR) Jakub Human Metapneumo PCR Nasal M.pneumoniae (PCR) Nasal SARS-CoV-2 (PCR) Serum Ketones Blood Type Antibody Screen 03/04/20 03/04/20 03/04/20 19:53 20:24 20:31 WBC RBC Hgb Hct MCV MCH MCHC RDW Plt Count MPV Neut # (Auto) Lymph # (Auto) [place] # (Auto) Eos # (Auto) Baso # (Auto) Absolute Nucleated RBC Nucleated RBC % PT INR Sodium Potassium Chloride Carbon Dioxide Anion Gap BUN Creatinine Estimated GFR (MDRD) Glucose POC Whole Bld Glucose 410 H Lactic Acid Calcium Total Bilirubin AST ALT Alkaline Phosphatase Troponin I High Sens 22.6 H* Total Protein Albumin Globulin Albumin/Globulin Ratio Lipase Nasal Adenovirus (PCR) NOT DETECTED Nasal B. parapertussis DNA (PCR) NOT DETECTED Nasal Coronavir 229E PCR NOT DETECTED Nasal Coronavir HKU1 PCR NOT DETECTED Nasal Coronavir NL63 PCR NOT DETECTED Nasal Coronavir OC43 PCR NOT DETECTED Nasal Enterovir/Rhinovir PCR NOT DETECTED Nasal Influenza B PCR NOT DETECTED Nasal Influenza A PCR NOT DETECTED Nasal Parainfluen 1 PCR NOT DETECTED Nasal Parainfluen 2 PCR NOT DETECTED Nasal Parainfluen 3 PCR NOT DETECTED Nasal Parainfluen 4 PCR NOT DETECTED Nasal RSV (PCR) NOT DETECTED Nasal B.pertussis DNA PCR NOT DETECTED Nasal C.pneumoniae (PCR) NOT DETECTED Jakub Human Metapneumo PCR NOT DETECTED Nasal M.pneumoniae (PCR) NOT DETECTED Nasal SARS-CoV-2 (PCR) NOT DETECTED Serum Ketones Blood Type Antibody Screen 03/04/20 20:31 WBC RBC Hgb Hct MCV MCH MCHC RDW Plt Count MPV Neut # (Auto) Lymph # (Auto) [place] # (Auto) Eos # (Auto) Baso # (Auto) Absolute Nucleated RBC Nucleated RBC % PT INR Sodium Potassium Chloride Carbon Dioxide Anion Gap BUN Creatinine Estimated GFR (MDRD) Glucose POC Whole Bld Glucose Lactic Acid Calcium Total Bilirubin AST ALT Alkaline Phosphatase Troponin I High Sens Total Protein Albumin Globulin Albumin/Globulin Ratio Lipase Nasal Adenovirus (PCR) Nasal B. parapertussis DNA (PCR) Nasal Coronavir 229E PCR Nasal Coronavir HKU1 PCR Nasal Coronavir NL63 PCR Nasal Coronavir OC43 PCR Nasal Enterovir/Rhinovir PCR Nasal Influenza B PCR Nasal Influenza A PCR Nasal Parainfluen 1 PCR Nasal Parainfluen 2 PCR Nasal Parainfluen 3 PCR Nasal Parainfluen 4 PCR Nasal RSV (PCR) Nasal B.pertussis DNA PCR Nasal C.pneumoniae (PCR) Jakub Human Metapneumo PCR Nasal M.pneumoniae (PCR) Nasal SARS-CoV-2 (PCR) Serum Ketones NEGATIVE Blood Type Antibody Screen - Rads (name of study) CT abd Radiology: Final report received (No acute inflammatory process within the abdomen or pelvis. No bowel obstruction. No free fluid or free air. Normal appendix. Mild to moderate constipation.) PD MEDICAL DECISION MAKING - ED course Complexity details: reviewed results, re-evaluated patient, considered differential, d/w patient ED course: 39-year-old gentleman with a history of renal disease presents to the emergency department for evaluation of acute hemaemesis. He was on his fourth dialysis treatment this afternoon when it was stopped abruptly due to the onset of vom iting bright red blood. When he arrived to the emergency department he had an emesis bag that had about 200 mils of bright red blood. He then vomited again some coffee ground emesis. This gentleman was placed on a Protonix drip after receiving a bolus.. Reassuringly his hemoglobin is normal and he did not denies any melena or hematochezia. The Ct of the abdomen (non contrast) did not show any acute surgical abnormalities. However with the acute upper GI bleed he likely needs observation versus evaluation with an EGD. Given lack of GI and dialysis services at [facility] we will look for transfer bed. COVID screening pending 1943: I spoke with Dr. Vidales a bellows filler at [facility]. He agrees to transfer the patient as he is hemodynamically stable. We are awaiting an accepting hospitalist. 2049: still awaiting a hospitalist at [facility] 5 units of regular insulin given given hyperglycemia. COVID screening negative 2129: I have spoken with Dr. Plascencia the accepting hospitalist at [facility]. Pt has an accepting bed. he will be transported via ALS. appropriate [employer] paperwork completed. Departure - Departure Disposition: 02 Transfer Acute Care Hosp Clinical Impression: Upper GI bleed, ESRD (end stage renal disease) on dialysis, Poorly controlled diabetes mellitus Hypertension Qualifiers: Hypertension type: renovascular hypertension Qualified Code(s): I15.0 - Renovascular hypertension
[2020-03-04 18:39] LABS: ALBUMIN 3.5 g/dL (3.2-5.5); ALBUMIN/GLOBULIN RATIO 0.8 (1.0-2.2); BILIRUBIN,TOTAL 1.1 mg/dL (0.2-1.0); CALCIUM 9.5 mg/dL (8.5-10.3)
[2020-03-04 18:45] LABS: INR 1.1 (0.8-1.2); PT - PROTHROMBIN TIME 12.4 secs (9.9-12.6)
--- NOTE | 2020-03-04 19:17 | CT Report ---
PROCEDURE: Abdomen/Pelvis WO INDICATIONS: hematatemsis; dialysis patient TECHNIQUE: Noncontrast 5 mm thick sections acquired from the diaphragms to the symphysis. 5 mm coronal and sagi ttal reformats were then performed. For radiation dose reduction, the following was used: automated exposure control, adjustment of mA and/or kV according to patient size. COMPARISON: 08/10/2019. FINDINGS: Image quality: Excellent. ABDOMEN: Lung bases: Lung bases are clear. Heart size is enlarged, no gross pericardial effusion. Solid organs: Liver and spleen are normal in size. Gallbladder is within normal limits Pancreas is normal in contours. No adrenal nodules. Kidneys are normal in size, without hydronephrosis or neph rolithiasis. Peritoneum and bowel: Unenhanced bowel loops demonstrate normal wall thickness and caliber. No free fluid or air. Again noted is a small hiatal hernia. Mild fecal stasis throughout the colon is seen. Appendix is within normal limits. Nodes and vessels: No retroperitoneal or mesenteric adenopathy by size criteria. Aorta and inferior vena cava are normal in caliber. Miscellaneous: No ventral hernias. PELVIS: Genitourinary: Bladder wall thickness is normal. Miscellaneous: No inguinal hernias or adenopathy. Bones: No suspicious bony lesions. No vertebral body compression fractures. IMPRESSION: 1. No acute inflammatory process within abdomen or pelvis. No bowel obstruction. No free fluid of jessica e air. Normal appendix. Mild to moderate constipation. 2. No nephrolithiasis or hydronephrosis. Reviewed by: Franco Campos MD on 03/04/2020 7:16 PM PST Approved by: Franco Campos MD on 03/04/2020 7:16 PM PST Station ID: [id number]
[2020-03-04] MEDS ORDERED: hydrALAZINE INJ 20 MG/ML VIAL IVP STA ×2 (19:37→20:11)
[2020-03-04] MEDS ORDERED: PANTOPRAZOLE 80 MG in SODIUM CHLORIDE 0.9% 100ML 100 ML IV STA (19:56)
[2020-03-04 20:54] LABS: C. PNEUMONIAE- RESP PCR PANEL NOT DETECTED
[2020-03-04] MEDS ORDERED: INSULIN REGULAR HUMAN 100 UNIT/1 ML 10 ML MDV IVP STA (20:56)
[2020-03-04 22:45] LABS: HGB - HEMOGLOBIN 12.4 g/dL (14.0-18.0)
[2020-03-04 22:57] VITALS: BP 198/109
== END 2020-03-04 22:57 | disposition short-term general hospital (02) ==
LOC: ED 17:07
DX: K92.0 Hematemesis (principal); E10.65 Type 1 diabetes mellitus with hyperglycemia; E10.22 Type 1 diabetes mellitus with diabetic chronic kidney disease; I12.0 Hypertensive chronic kidney disease with stage 5 chronic kidney disease or end stage renal disease; N18.6 End stage renal disease; Z99.2 Dependence on renal dialysis; Z79.4 Long term (current) use of insulin; R94.31 Abnormal electrocardiogram [ECG] [EKG]; Z20.828 Contact with and (suspected) exposure to other viral communicable diseases
CPT/HCPCS: 0202U; 36415; 74176; 80053; 82009; 83605; 83690; 84484; 85014; 85018; 85025; 85610; 86850; 86900; 86901; 93005; 96374; 96375; 96376; 99284; 99285; J1170; J1815

== ENCOUNTER 2020-03-04 22:44 | Outpatient (CLI) | payer OTHER | END 2020-03-04 22:45 | disposition short-term general hospital (02) | LOC: EMS 22:44 | PROVIDERS: ATTEND Surgery | DX: K92.2 Gastrointestinal hemorrhage, unspecified (principal); N18.6 End stage renal disease; Z99.2 Dependence on renal dialysis | CPT/HCPCS: A0425; A0426 ==

== ENCOUNTER 2020-07-26 01:36 | Emergency (ER) | payer OTHER ==
--- NOTE | 2020-07-26 01:52 | ED Physician Documentation ---
PD HPI ABD PAIN - Stated complaint Stated Complaint: AB PX - Chief complaint Chief Complaint: Abd Pain - History obtained from History obtained from: Patient - History of Present Illness Timing - onset: How many days ago (2) Timing - details: Gradual onset, Waxing and waning Pain level now: 8 Quality: Cramping, Pain Location: All over / everywhere Radiation: Other (does not radiate but does involve entire abdomen) Improved by: Other (nothing) Worsened by: Eating, Palpation Associated symptoms: Nausea, Vomiting. No: Fever, Hematemesis, Diarrhea, Constipation, Melena, Hematochezia, Chest pain Similar symptoms before: Diagnosis (diabetic gastroparesis) Recently seen: Not recently seen - Additional information Additional information: c/o nausea, vomiting, and diffuse abdominal pain x 2 days. He had his second COVID shot 3 days ago. He gets hemodialysis every //; he says that during yesterday's (Tuesday's) HD session, he was given zofran for the n/v. Patient has had many previous episodes of n/v/abdominal pain with extensive testing that has not revealed specific cause; he says tonight's symptoms are same as previous episodes, with previous episodes typically attributed to diabetic gastroparesis. He is mostly concerned with the n/v, as it has progressed to the point of his being unable to tolerate any PO since yesterday afternoon, including medications, sips of fluids. He tried taking his TL zofran at home but this did not provide any improvement Review of Systems Constitutional: denies: Fever, Chills, Sweats Eyes: reports: Reviewed and negative Ears: reports: Reviewed and negative Nose: reports: Reviewed and negative Throat: reports: Reviewed and negative Cardiac: reports: Reviewed and negative Respiratory: reports: Reviewed and negative PD PAST MEDICAL HISTORY - Past Medical History Cardiovascular: High cholesterol, Hypertension Respiratory: None Neuro: None Endocrine/Autoimmune: Type 1 diabetes GI: GERD, Ulcers : Dialysis, Renal insuffiency HEENT: None Psych: Depression, Post traumatic stress disorder Musculoskeletal: None Derm: None - Past Surgical History Past Surgical History: No General: Appendectomy - Present Medications Home Medications: Ambulatory Orders Medication Instructions Recorded Confirmed Insulin Aspart [Novolog] .CONTINUOUS PUMP 08/12/19 Ferrous Sulfate 325 mg PO DAILY #30 tablet 08/15/19 03/04/20 Pantoprazole [Protonix] 40 mg PO QDAC #30 tablet 08/15/19 03/04/20 carvediloL [Coreg] 12.5 mg PO BID #60 tablet 08/15/19 03/04/20 Metoclopramide [Reglan] 10 mg PO Q6H PRN #14 tablet 08/16/19 03/04/20 Hydralazine HCl 50 mg PO TID 09/19/19 03/04/20 Amoxicillin 500 mg PO TID #5 capsule 09/22/19 03/04/20 amLODIPine [Norvasc] 10 mg PO QPM #30 tablet 09/22/19 03/04/20 cloNIDine 0.1 MG PATCH 1 patch TOP Q7D #4 patch 09/22/19 03/04/20 [[id number]] Furosemide [Lasix] 40 mg PO DAILY 02/26/20 03/04/20 Ondansetron Odt [Zofran] 4 mg TL Q6H PRN #15 tablet 02/26/20 03/04/20 oxyCODONE [Roxicodone] 5 mg PO Q4-6H PRN #12 tablet 02/26/20 03/04/20 Amitriptyline [Elavil] 25 mg PO 07/26/20 - Allergies Allergies/Adverse Reactions: Allergies Allergy/AdvReac Type Severity Reaction Status Date / Time No Known Drug Allergies Allergy Verified 07/26/20 02:00 - Social History Does the pt smoke?: No Smoking Status: Never smoker Does the pt drink ETOH?: No Does the pt have substance abuse?: No - Immunizations Immunizations are current?: Yes - POLST Patient has POLST: No PD ED PE NORMAL - Vitals Vital signs reviewed: Yes - General General: Alert and oriented X 3, Well developed/nourished, Other (appears uncomfortable: appears to be in waxing and waning painful distress and vomits (dry heaving) twice during H+P) - HEENT HEENT: Other (dry mucous membranes) - Neck Neck: Supple, no meningeal sign - Cardiac Cardiac: No murmur - Respiratory Respiratory: No respiratory distress, Clear bilaterally - Abdomen Abdomen: Soft, Non distended - Derm Derm: Normal color, Warm and dry - Extremities Extremities: No edema PD ED PE EXPANDED - Cardiac Cardiac: Tachy, Regular Rhythm - Abdomen Abdomen: Decreased BS, Tender to palpation, Generalized/diffuse. No: Distended, Rebound, Guarding Results - Vitals Vitals: Vital Signs - 24 hr 07/26/20 07/26/20 07/26/20 04:10 06:34 07:30 Heart Rate 108 H 99 92 Respiratory 20 16 16 Rate Blood Pressure 205/118 H 151/89 H 142/86 H O2 Saturation 99 97 96 07/26/20 07/26/20 07/26/20 08:29 09:00 10:00 Heart Rate 96 92 89 Respiratory 16 16 16 Rate Blood Pressure 145/84 H 144/86 H 131/80 H O2 Saturation 97 96 97 07/26/20 07/26/20 07/26/20 11:00 12:00 13:00 Heart Rate 93 96 92 Respiratory 16 16 16 Rate Blood Pressure 160/92 H 159/97 H 155/96 H O2 Saturation 97 97 96 Oxygen O2 Source Room air - Labs Labs: Laboratory Tests 07/26/20 07/26/20 07/26/20 02:30 02:30 02:30 WBC 8.7 RBC 4.16 L Hgb 12.0 L Hct 35.4 L MCV 85.1 MCH 28.8 MCHC 33.9 RDW 12.7 Plt Count 322 MPV 9.7 Neut # (Auto) 6.7 H Lymph # (Auto) 1.3 L [place] # (Auto) 0.6 Eos # (Auto) 0.0 Baso # (Auto) 0.0 Absolute Nucleated RBC 0.00 Nucleated RBC % 0.0 VBG pH VBG pCO2 VBG pO2 VBG HCO3 VBG Total CO2 VBG O2 Saturation VBG Base Excess Sodium 133 L Potassium 4.2 Chloride 91 L Carbon Dioxide 21 Anion Gap 21.0 H BUN 29 H Creatinine 3.5 H Estimated GFR (MDRD) 24 L Glucose 521 H* POC Whole Bld Glucose Calcium 8.9 Total Bilirubin 1.4 H AST 18 ALT 37 Alkaline Phosphatase 111 Total Protein 8.4 H Albumin 3.9 Globulin 4.5 H Albumin/Globulin Ratio 0.9 L Nasal Adenovirus (PCR) Nasal B. parapertussis DNA (PCR) Nasal Coronavir 229E PCR Nasal Coronavir HKU1 PCR Nasal Coronavir NL63 PCR Nasal Coronavir OC43 PCR Nasal Enterovir/Rhinovir PCR Nasal Influenza B PCR Nasal Influenza A PCR Nasal Parainfluen 1 PCR Nasal Parainfluen 2 PCR Nasal Parainfluen 3 PCR Nasal Parainfluen 4 PCR Nasal RSV (PCR) Nasal B.pertussis DNA PCR Nasal C.pneumoniae (PCR) Jakub Human Metapneumo PCR Nasal M.pneumoniae (PCR) Nasal SARS-CoV-2 (PCR) Serum Ketones SMALL H 07/26/20 07/26/20 07/26/20 03:19 04:08 07:47 WBC RBC Hgb Hct MCV MCH MCHC RDW Plt Count MPV Neut # (Auto) Lymph # (Auto) [place] # (Auto) Eos # (Auto) Baso # (Auto) Absolute Nucleated RBC Nucleated RBC % VBG pH 7.309 L VBG pCO2 43.6 VBG pO2 96.0 H VBG HCO3 21.9 L VBG Total CO2 23.0 L VBG O2 Saturation 97.0 H VBG Base Excess -4.0 L Sodium Potassium Chloride Carbon Dioxide Anion Gap BUN Creatinine Estimated GFR (MDRD) Glucose POC Whole Bld Glucose 521 H* 491 H Calcium Total Bilirubin AST ALT Alkaline Phosphatase Total Protein Albumin Globulin Albumin/Globulin Ratio Nasal Adenovirus (PCR) Nasal B. parapertussis DNA (PCR) Nasal Coronavir 229E PCR Nasal Coronavir HKU1 PCR Nasal Coronavir NL63 PCR Nasal Coronavir OC43 PCR Nasal Enterovir/Rhinovir PCR Nasal Influenza B PCR Nasal Influenza A PCR Nasal Parainfluen 1 PCR Nasal Parainfluen 2 PCR Nasal Parainfluen 3 PCR Nasal Parainfluen 4 PCR Nasal RSV (PCR) Nasal B.pertussis DNA PCR Nasal C.pneumoniae (PCR) Jakub Human Metapneumo PCR Nasal M.pneumoniae (PCR) Nasal SARS-CoV-2 (PCR) Serum Ketones 07/26/20 07/26/20 07/26/20 07:48 10:57 12:02 WBC RBC Hgb Hct MCV MCH MCHC RDW Plt Count MPV Neut # (Auto) Lymph # (Auto) [place] # (Auto) Eos # (Auto) Baso # (Auto) Absolute Nucleated RBC Nucleated RBC % VBG pH VBG pCO2 VBG pO2 VBG HCO3 VBG Total CO2 VBG O2 Saturation VBG Base Excess Sodium Potassium Chloride Carbon Dioxide Anion Gap BUN Creatinine Estimated GFR (MDRD) Glucose POC Whole Bld Glucose 523 H* 469 H Calcium Total Bilirubin AST ALT Alkaline Phosphatase Total Protein Albumin Globulin Albumin/Globulin Ratio Nasal Adenovirus (PCR) NOT DETECTED Nasal B. parapertussis DNA (PCR) NOT DETECTED Nasal Coronavir 229E PCR NOT DETECTED Nasal Coronavir HKU1 PCR NOT DETECTED Nasal Coronavir NL63 PCR NOT DETECTED Nasal Coronavir OC43 PCR NOT DETECTED Nasal Enterovir/Rhinovir PCR NOT DETECTED Nasal Influenza B PCR NOT DETECTED Nasal Influenza A PCR NOT DETECTED Nasal Parainfluen 1 PCR NOT DETECTED Nasal Parainfluen 2 PCR NOT DETECTED Nasal Parainfluen 3 PCR NOT DETECTED Nasal Parainfluen 4 PCR NOT DETECTED Nasal RSV (PCR) NOT DETECTED Nasal B.pertussis DNA PCR NOT DETECTED Nasal C.pneumoniae (PCR) NOT DETECTED Jakub Human Metapneumo PCR NOT DETECTED Nasal M.pneumoniae (PCR) NOT DETECTED Nasal SARS-CoV-2 (PCR) NOT DETECTED Serum Ketones 07/26/20 13:02 WBC RBC Hgb Hct MCV MCH MCHC RDW Plt Count MPV Neut # (Auto) Lymph # (Auto) [place] # (Auto) Eos # (Auto) Baso # (Auto) Absolute Nucleated RBC Nucleated RBC % VBG pH VBG pCO2 VBG pO2 VBG HCO3 VBG Total CO2 VBG O2 Saturation VBG Base Excess Sodium Potassium Chloride Carbon Dioxide Anion Gap BUN Creatinine Estimated GFR (MDRD) Glucose POC Whole Bld Glucose 422 H Calcium Total Bilirubin AST ALT Alkaline Phosphatase Total Protein Albumin Globulin Albumin/Globulin Ratio Nasal Adenovirus (PCR) Nasal B. parapertussis DNA (PCR) Nasal Coronavir 229E PCR Nasal Coronavir HKU1 PCR Nasal Coronavir NL63 PCR Nasal Coronavir OC43 PCR Nasal Enterovir/Rhinovir PCR Nasal Influenza B PCR Nasal Influenza A PCR Nasal Parainfluen 1 PCR Nasal Parainfluen 2 PCR Nasal Parainfluen 3 PCR Nasal Parainfluen 4 PCR Nasal RSV (PCR) Nasal B.pertussis DNA PCR Nasal C.pneumoniae (PCR) Jakub Human Metapneumo PCR Nasal M.pneumoniae (PCR) Nasal SARS-CoV-2 (PCR) Serum Ketones PD MEDICAL DECISION MAKING - ED course Complexity details: reviewed old records, reviewed results, re-evaluated patient, considered differential, d/w patient ED course: patient reported adequate symptomatic relief with 1 mg IV dilaudid, 4mg IV zofran, and 10mg IV reglan. He is also given 500cc NS bolus. His lab work is most concerning for 521 glucose and small ketones. He is given 10 units SQ regular insulin but recheck of fingerstick is unchanged. Because of his CRF, IV fluids would best be given slowly and in aliquots. His symptoms eventually returned and thus he is given 250cc NS, another dose of 4mg IV zofran, and 0.5mg IV dilaudid. I discussed this case with Dr. Thacker ([facility] hospitalist); he notes that when patient has been admitted for similar symptoms in the past to [facility], he typically requires 2-[address] Thacker thus recommends transfer to facility that can perform hemodialysis, anticipating patient will likely not be dischargeable before he is due for his next dialysis session. [facility] is contacted; they have no beds. [facility] is contacted; they anticipate bed availability later this morning, possibly by 8 AM. Care of patient turned over to Dr. Monroe at end of my shift. Departure - Departure Disposition: 02 Transfer Acute Care Hosp Clinical Impression: Diabetic ketoacidosis Discharge Date/Time: 07/26/20 13:32
[2020-07-26] MEDS ORDERED: SODIUM CHLORIDE 0.9% 500 ML IV STA (02:20)
[2020-07-26] MEDS ORDERED: ONDANSETRON 4 MG/2 ML VIAL IVP STA ×2 (02:20→05:52)
[2020-07-26] MEDS ORDERED: METOCLOPRAMIDE 10 MG/2 ML VIAL IVP STA (02:20)
[2020-07-26] MEDS ORDERED: HYDROmorphone 1 MG/ML CARPUJECT IVP STA ×2 (02:21→05:53)
[2020-07-26 02:37] LABS: BASOPHILS % (AUTO) 0.5 %; EOSINOPHILS % (AUTO) 0.1 %; HCT - HEMATOCRIT 35.4 % (42.0-52.0); LYMPHOCYTES # (AUTO) 1.3 10^3/uL (1.5-3.5); LYMPHOCYTES % (AUTO) 14.9 %; MEAN CORPUSCULAR HEMOGLOBIN 28.8 pg (27.0-31.0); MEAN CORPUSCULAR HGB CONC 33.9 g/dL (32.0-36.0); MEAN CORPUSCULAR VOLUME 85.1 fL (80.0-94.0); MEAN PLATELET VOLUME 9.7 fL (7.4-11.4); MONOCYTES # (AUTO) 0.6 10^3/uL (0.0-1.0); MONOCYTES % (AUTO) 7.1 %; NEUTROPHILS # (AUTO) 6.7 10^3/uL (1.5-6.6); NEUTROPHILS % (AUTO) 77.2 %; PLT - PLATELET COUNT 322 10^3/uL (130-450); RED BLOOD COUNT 4.16 10^6/uL (4.70-6.10); RED CELL DISTRIBUTION WIDTH 12.7 % (12.0-15.0); WHITE BLOOD COUNT 8.7 x10^3/uL (4.8-10.8)
[2020-07-26 02:52] LABS: ALBUMIN 3.9 g/dL (3.2-5.5); ALBUMIN/GLOBULIN RATIO 0.9 (1.0-2.2); BILIRUBIN,TOTAL 1.4 mg/dL (0.2-1.0); CALCIUM 8.9 mg/dL (8.5-10.3); CREATININE 3.5 mg/dL (0.6-1.2); POTASSIUM 4.2 mmol/L (3.5-5.0); TOTAL PROTEIN 8.4 g/dL (6.7-8.2)
[2020-07-26] MEDS ORDERED: INSULIN REGULAR HUMAN 100 UNIT/1 ML 10 ML MDV SUBQ STA (03:23)
[2020-07-26 03:47] LABS: VBG HCO3 21.9 mmol/L (23-28); VBG PCO2 43.6 mmHg (41-51); VBG PH 7.309 (7.31-7.41)
[2020-07-26] MEDS ORDERED: SODIUM CHLORIDE 0.9% 250 ML IV STA (05:52)
[2020-07-26] MEDS ORDERED: hydrALAZINE 25 MG TABLET PO STA (06:12)
[2020-07-26] MEDS ORDERED: carvediloL 12.5 MG TABLET PO STA (06:13)
[2020-07-26 09:02] LABS: B. PARAPERTUSSIS- RESP PCR PAN NOT DETECTED; B. PERTUSSIS- RESP PCR PANEL NOT DETECTED; C. PNEUMONIAE- RESP PCR PANEL NOT DETECTED; CORONAVIRUS 229E-RESP PCR NOT DETECTED; CORONAVIRUS HKU1-RESP PCR NOT DETECTED; CORONAVIRUS NL63-RESP PCR NOT DETECTED; CORONAVIRUS OC43-RESP PCR NOT DETECTED; HUMAN METAPNEUMOVIRUS NOT DETECTED; INFLUENZA A- RESP PCR PANEL NOT DETECTED; INFLUENZA B - RESP PCR PANEL NOT DETECTED; M. PNEUMONIAE- RESP PCR PANEL NOT DETECTED; PARAINFLUENZA VIRUS 1 NOT DETECTED; PARAINFLUENZA VIRUS 2 NOT DETECTED; PARAINFLUENZA VIRUS 3 NOT DETECTED; PARAINFLUENZA VIRUS 4 NOT DETECTED; RHINOVIRUS/ENTEROVIRUS NOT DETECTED; RSV- RESP PCR PANEL NOT DETECTED; SARS-CoV-2 -RESP PCR PANEL NOT DETECTED
[2020-07-26] MEDS ORDERED: INSULIN REGULAR HUMAN 100 UNIT in SODIUM CHLORIDE 0.9% 100ML 99 ML IV STA (09:46)
[2020-07-26] MEDS ORDERED: POTASSIUM CHLOR 10 MEQ/100 ML 10 MEQ/100 ML BAG IV STA (09:52)
[2020-07-26] MEDS ORDERED: POTASSIUM CHLOR 10 MEQ/100 ML 10 MEQ/100 ML BAG IV SCH (10:00)
[2020-07-26] MEDS ORDERED: SODIUM CHLORIDE 0.9% 1,000 ML IV SCH (12:00)
[2020-07-26 13:40] VITALS: BP 155/96
== END 2020-07-26 13:32 | disposition short-term general hospital (02) ==
LOC: ED 01:36
DX: E10.10 Type 1 diabetes mellitus with ketoacidosis without coma (principal); E10.22 Type 1 diabetes mellitus with diabetic chronic kidney disease; I12.9 Hypertensive chronic kidney disease with stage 1 through stage 4 chronic kidney disease, or unspecified chronic kidney disease; N18.9 Chronic kidney disease, unspecified; Z99.2 Dependence on renal dialysis; Z79.4 Long term (current) use of insulin; R11.2 Nausea with vomiting, unspecified; Z20.822 Contact with and (suspected) exposure to COVID-19
CPT/HCPCS: 0202U; 36415; 80053; 82009; 82803; 85025; 96365; 96366; 96375; 96376; 99284; 99285; A9270; J1170; J1815; J2765

== ENCOUNTER 2020-07-26 13:29 | Outpatient (CLI) | payer OTHER | END 2020-07-26 13:30 | disposition short-term general hospital (02) | LOC: EMS 13:29 | PROVIDERS: ATTEND Emergency Medicine | DX: E11.10 Type 2 diabetes mellitus with ketoacidosis without coma (principal); E11.22 Type 2 diabetes mellitus with diabetic chronic kidney disease; N18.6 End stage renal disease | CPT/HCPCS: A0425; A0426 ==

== ENCOUNTER 2020-08-22 22:41 | Emergency (ER) | payer OTHER ==
--- NOTE | 2020-08-22 23:19 | ED Physician Documentation ---
PD HPI NVD - Stated complaint Stated Complaint: VOMIT BLOOD X3 DAYS - Chief complaint Chief Complaint: Abd Pain - History obtained from History obtained from: Patient - History of Present Illness Timing - onset: How many days ago (3) Timing - duration: Days (3) Timing - details: Abrupt onset, Still present, Waxing and waning Associated symptoms: Abdominal pain, Hematemesis. No: Fever Contributing factors: Diabetes. No: Sick contact, Bad food Improved by: No: Vomiting Worsened by: Eating Similar symptoms before: Diagnosis (diabetic gastroparesis.) Recently seen: Clinic (had dialysis earlier today with no problems.), Emergency Dept Review of Systems Constitutional: denies: Fever, Chills Nose: denies: Rhinorrhea / runny nose, Congestion Throat: denies: Sore throat Cardiac: denies: Chest pain / pressure Respiratory: denies: Cough GI: reports: Abdominal Pain, Nausea, Vomiting. denies: Diarrhea Musculoskeletal: denies: Extremity swelling Neurologic: reports: Generalized weakness. denies: Focal weakness, Numbness, Near syncope, Altered mental status, Headache PD PAST MEDICAL HISTORY - Past Medical History Cardiovascular: High cholesterol, Hypertension Respiratory: None Neuro: None Endocrine/Autoimmune: Type 1 diabetes GI: GERD, Ulcers : Dialysis, Renal insuffiency HEENT: None Psych: Depression, Post traumatic stress disorder Musculoskeletal: None Derm: None - Past Surgical History Past Surgical History: No General: Appendectomy - Present Medications Home Medications: Ambulatory Orders Medication Instructions Recorded Confirmed Insulin Aspart [Novolog] .CONTINUOUS PUMP 08/12/19 Ferrous Sulfate 325 mg PO DAILY #30 tablet 08/15/19 08/22/20 Pantoprazole [Protonix] 40 mg PO QDAC #30 tablet 08/15/19 08/22/20 carvediloL [Coreg] 12.5 mg PO BID #60 tablet 08/15/19 08/22/20 Metoclopramide [Reglan] 10 mg PO Q6H PRN #14 tablet 08/16/19 08/22/20 amLODIPine [Norvasc] 10 mg PO QPM #30 tablet 09/22/19 08/22/20 Furosemide [Lasix] 40 mg PO DAILY 02/26/20 08/22/20 Ondansetron Odt [Zofran] 4 mg TL Q6H PRN #15 tablet 02/26/20 08/22/20 Amitriptyline [Elavil] 25 mg PO DAILY 07/26/20 08/22/20 - Allergies Allergies/Adverse Reactions: Allergies Allergy/AdvReac Type Severity Reaction Status Date / Time No Known Drug Allergies Allergy Verified 07/26/20 02:00 - Social History Does the pt smoke?: No Smoking Status: Never smoker Does the pt drink ETOH?: No Does the pt have substance abuse?: No - Immunizations Immunizations are current?: Yes - POLST Patient has POLST: No PD ED PE NORMAL - Vitals Vital signs reviewed: Yes - General General: Alert and oriented X 3, Well developed/nourished, Other - HEENT HEENT: Pharynx benign - Neck Neck: Supple, no meningeal sign, No adenopathy - Cardiac Cardiac: No murmur. No: RRR (tachycardic but regular) - Abdomen Abdomen: Normal bowel sounds, Non distended, No organomegaly, Other (tender mid to epigastric area without guarding nor percussion tender. ) - Male Male : Deferred - Rectal Rectal: Deferred - Back Back: No CVA TTP - Derm Derm: Normal color, Warm and dry - Extremities Extremities: Normal ROM s pain, No edema, No calf tenderness / cord - Neuro Neuro: Alert and oriented X 3, No motor deficit, Normal speech Results - Vitals Vitals: Vital Signs - 24 hr 08/22/20 08/22/20 08/23/20 23:00 23:51 00:15 Temperature 37.1 C 36.5 C Heart Rate 110 H 105 H 106 H Respiratory 18 10 L 19 Rate Blood Pressure 171/92 H 227/118 H 201/105 H O2 Saturation 100 98 99 08/23/20 08/23/20 08/23/20 00:46 02:06 02:25 Temperature 37.9 C Heart Rate 103 H 110 H Respiratory 12 22 Rate Blood Pressure 191/98 H 205/107 H O2 Saturation 98 99 Oxygen O2 Source Room air - Labs Labs: Laboratory Tests 08/22/20 08/22/20 08/22/20 23:14 23:20 23:20 WBC 11.3 H RBC 3.47 L Hgb 10.4 L Hct 30.1 L MCV 86.7 MCH 30.0 MCHC 34.6 RDW 13.9 Plt Count 492 H MPV 9.6 Neut # (Auto) 8.3 H Lymph # (Auto) 1.8 [place] # (Auto) 1.1 H Eos # (Auto) 0.1 Baso # (Auto) 0.0 Absolute Nucleated RBC 0.00 Nucleated RBC % 0.0 Sodium 135 Potassium 3.2 L Chloride 93 L Carbon Dioxide 26 Anion Gap 16.0 H BUN 20 Creatinine 3.1 H Estimated GFR (MDRD) 27 L Glucose 306 H POC Whole Bld Glucose 285 H Calcium 9.3 Magnesium 2.1 Total Bilirubin 1.2 H AST 15 ALT 15 Alkaline Phosphatase 81 Total Protein 8.0 Albumin 3.7 Globulin 4.3 H Albumin/Globulin Ratio 0.9 L Lipase 15 L PD MEDICAL DECISION MAKING - ED course Complexity details: reviewed old records, re-evaluated patient (improved with IV fluids (small amountA) and meds.), considered differential, d/w patient Departure - Departure Disposition: 01 Home, Self Care Clinical Impression: Nausea and vomiting, Gastroparesis diabeticorum Condition: Stable Record reviewed to determine appropriate education?: Yes Instructions: ED Nausea Vomiting Follow-Up: Roxanne Johnson MD [Primary Care Provider] - Comments: Continue with usual medications at home. Small frequent fluids. Add some antacids such as Maalox or Mylanta several times daily for the next few days. Return if worsening symptoms again. Discharge Date/Time: 08/23/20 02:33
[2020-08-22] MEDS ORDERED: MORPHINE 10 MG/ML VIAL IVP STA (23:28)
[2020-08-22] MEDS ORDERED: METOCLOPRAMIDE 10 MG/2 ML VIAL IVP STA (23:28)
[2020-08-22] MEDS ORDERED: FAMOTIDINE 20 MG/2 ML VIAL IVP STA (23:28)
[2020-08-22] MEDS ORDERED: SODIUM CHLORIDE 0.9% 1,000 ML IV STA (23:29)
[2020-08-22 23:35] LABS: BASOPHILS % (AUTO) 0.4 %; EOSINOPHILS # (AUTO) 0.1 10^3/uL (0.0-0.7); EOSINOPHILS % (AUTO) 0.5 %; HCT - HEMATOCRIT 30.1 % (42.0-52.0); HGB - HEMOGLOBIN 10.4 g/dL (14.0-18.0); LYMPHOCYTES # (AUTO) 1.8 10^3/uL (1.5-3.5); LYMPHOCYTES % (AUTO) 15.7 %; MEAN CORPUSCULAR HGB CONC 34.6 g/dL (32.0-36.0); MEAN CORPUSCULAR VOLUME 86.7 fL (80.0-94.0); MEAN PLATELET VOLUME 9.6 fL (7.4-11.4); MONOCYTES # (AUTO) 1.1 10^3/uL (0.0-1.0); MONOCYTES % (AUTO) 9.6 %; NEUTROPHILS # (AUTO) 8.3 10^3/uL (1.5-6.6); NEUTROPHILS % (AUTO) 73.4 %; PLT - PLATELET COUNT 492 10^3/uL (130-450); RED BLOOD COUNT 3.47 10^6/uL (4.70-6.10); RED CELL DISTRIBUTION WIDTH 13.9 % (12.0-15.0); WHITE BLOOD COUNT 11.3 x10^3/uL (4.8-10.8)
[2020-08-22 23:48] LABS: ALBUMIN 3.7 g/dL (3.2-5.5); ALBUMIN/GLOBULIN RATIO 0.9 (1.0-2.2); BILIRUBIN,TOTAL 1.2 mg/dL (0.2-1.0); CALCIUM 9.3 mg/dL (8.5-10.3); CREATININE 3.1 mg/dL (0.6-1.2); MAGNESIUM 2.1 mg/dL (1.7-2.8); POTASSIUM 3.2 mmol/L (3.5-5.0)
[2020-08-23 02:07] VITALS: BP 205/107
== END 2020-08-23 02:33 | disposition home or self-care (01) ==
LOC: ED 22:41
DX: E10.43 Type 1 diabetes mellitus with diabetic autonomic (poly)neuropathy (principal); K31.84 Gastroparesis; R11.2 Nausea with vomiting, unspecified; K21.9 Gastro-esophageal reflux disease without esophagitis; Z87.11 Personal history of peptic ulcer disease; I10 Essential (primary) hypertension; N28.9 Disorder of kidney and ureter, unspecified; Z99.2 Dependence on renal dialysis
CPT/HCPCS: 36415; 80053; 83690; 83735; 85025; 96361; 96374; 96375; 99283; J2765

== ENCOUNTER 2020-10-14 14:35 | Outpatient (CLI) | payer OTHER | END 2020-10-14 14:36 | disposition short-term general hospital (02) | LOC: EMS 14:35 | DX: R11.2 Nausea with vomiting, unspecified (principal); R53.83 Other fatigue | CPT/HCPCS: A0425; A0427 ==

== ENCOUNTER 2021-05-10 06:36 | Outpatient (CLI) | payer OTHER | END 2021-05-10 06:37 | disposition critical access hospital (66) | LOC: EMS 06:36 | DX: R09.89 Other specified symptoms and signs involving the circulatory and respiratory systems (principal); R50.9 Fever, unspecified | CPT/HCPCS: A0425; A0429 ==

== ENCOUNTER 2021-05-10 06:53 | Emergency (ER) | payer OTHER ==
[2021-05-10] MEDS ORDERED: IBUPROFEN 800 MG TABLET PO STA (07:05)
[2021-05-10] MEDS ORDERED: ACETAMINOPHEN 325 MG TABLET PO STA (07:05)
[2021-05-10] MEDS ORDERED: SODIUM CHLORIDE 0.9% 1,000 ML IV STA (07:12)
[2021-05-10] MEDS ORDERED: cefTRIAXone 2 GM in SODIUM CHLORIDE 0.9% MINIBAG 100 ML IV STA (07:49)
[2021-05-10] MEDS ORDERED: ONDANSETRON 4 MG/2 ML VIAL IVP STA (07:49)
[2021-05-10] MEDS ORDERED: AZITHROMYCIN INJ 500 MG in SODIUM CHLORIDE 0.9% 250 ML IV STA (07:49)
[2021-05-10 07:53] LABS: BASOPHILS % (AUTO) 0.4 %; EOSINOPHILS # (AUTO) 0.1 10^3/uL (0.0-0.7); EOSINOPHILS % (AUTO) 2.2 %; HCT - HEMATOCRIT 21.7 % (42.0-52.0); HGB - HEMOGLOBIN 7.4 g/dL (14.0-18.0); LYMPHOCYTES # (AUTO) 0.8 10^3/uL (1.5-3.5); LYMPHOCYTES % (AUTO) 15.3 %; MEAN CORPUSCULAR HEMOGLOBIN 30.7 pg (27.0-31.0); MEAN CORPUSCULAR HGB CONC 34.1 g/dL (32.0-36.0); MEAN PLATELET VOLUME 9.8 fL (7.4-11.4); MONOCYTES # (AUTO) 0.7 10^3/uL (0.0-1.0); MONOCYTES % (AUTO) 11.9 %; NEUTROPHILS # (AUTO) 3.8 10^3/uL (1.5-6.6); NEUTROPHILS % (AUTO) 69.5 %; PLT - PLATELET COUNT 307 10^3/uL (130-450); RED BLOOD COUNT 2.41 10^6/uL (4.70-6.10); RED CELL DISTRIBUTION WIDTH 13.5 % (12.0-15.0); WHITE BLOOD COUNT 5.5 x10^3/uL (4.8-10.8)
[2021-05-10 08:10] LABS: ALBUMIN 2.9 g/dL (3.2-5.5); ALBUMIN/GLOBULIN RATIO 0.8 (1.0-2.2); BILIRUBIN,TOTAL 1.3 mg/dL (0.2-1.0); CALCIUM 7.9 mg/dL (8.5-10.3); POTASSIUM 4.1 mmol/L (3.5-5.0); TOTAL PROTEIN 6.6 g/dL (6.7-8.2)
--- NOTE | 2021-05-10 08:12 | XRAY Report ---
PROCEDURE: Chest 1 View X-Ray INDICATIONS: chest pain TECHNIQUE: One view of the chest was acquired. COMPARISON: 09/19/2019 FINDINGS: Surgical changes and devices: There is a right-sided dialysis catheter seen, with the tip near the ca voatrial junction. Lungs and pleura: No large pleural effusions or pneumothorax. Diffuse interstitial prominence can be seen. Mediastinum: Mediastinal contours appear normal. Heart size is at the upper limits of normal for po rtable technique. Bones and chest wall: No suspicious bony lesions. Overlying soft tissues appear unremarkable. IMPRESSION: Diffuse interstitial prominence can be seen. Please consider fluid overload. Differential diagnosis w ould also include atypical infection, including COVID pneumonia. The tip of the dialysis catheter can be seen overlying the cavoatrial junction. Reviewed by: Ming Alvarez MD on 05/10/2021 7:11 AM [facility] Approved by: Ming Alvarez MD on 05/10/2021 7:11 AM [facility] Station ID: [id number]
[2021-05-10 08:14] LABS: CREATININE 8.5 mg/dL (0.6-1.2)
[2021-05-10 10:06] LABS: B. PARAPERTUSSIS- RESP PCR PAN NOT DETECTED; B. PERTUSSIS- RESP PCR PANEL NOT DETECTED; C. PNEUMONIAE- RESP PCR PANEL NOT DETECTED; CORONAVIRUS 229E-RESP PCR NOT DETECTED; CORONAVIRUS HKU1-RESP PCR NOT DETECTED; CORONAVIRUS NL63-RESP PCR NOT DETECTED; CORONAVIRUS OC43-RESP PCR NOT DETECTED; HUMAN METAPNEUMOVIRUS NOT DETECTED; INFLUENZA A- RESP PCR PANEL NOT DETECTED; INFLUENZA B - RESP PCR PANEL NOT DETECTED; M. PNEUMONIAE- RESP PCR PANEL NOT DETECTED; PARAINFLUENZA VIRUS 1 NOT DETECTED; PARAINFLUENZA VIRUS 2 NOT DETECTED; PARAINFLUENZA VIRUS 3 NOT DETECTED; PARAINFLUENZA VIRUS 4 NOT DETECTED; RHINOVIRUS/ENTEROVIRUS NOT DETECTED; RSV- RESP PCR PANEL NOT DETECTED
[2021-05-10 10:08] LABS: SARS-CoV-2 -RESP PCR PANEL DETECTED
[2021-05-10] MEDS: INSULIN ASPART 300 UNIT/3 ML PEN SUBQ SCH ×2 (12:18→17:02)
--- NOTE | 2021-05-10 16:15 | ED Physician Documentation ---
History of Present Illness - Stated complaint Stated Complaint: C+/SOA - Chief complaint Chief Complaint: Resp - History obtained from History obtained from: Patient - Additonal information Additional information: The patient comes to the emergency department chief complaint of dyspnea, worsening over the last week since he was diagnosed with Covid. The patient states that he is vaccinated. He has diabetes and hypertension, as well as end- stage renal disease on hemodialysis. He gets dialysis on Tuesdays, and Saturdays, so just had dialysis yesterday. He states he has been having fev ers all week. He is also been nauseated and vomiting. No diarrhea. No other complaints at this time. Review of Systems Ten Systems: 10 systems reviewed and negative Constitutional: reports: Fever Eyes: reports: Reviewed and negative Ears: reports: Reviewed and negative Nose: reports: Reviewed and negative Throat: reports: Reviewed and negative Cardiac: reports: Reviewed and negative Respiratory: reports: Dyspnea, Cough GI: reports: Reviewed and negative : reports: Reviewed and negative Skin: reports: Reviewed and negative Musculoskeletal: reports: Reviewed and negative Neurologic: reports: Reviewed and negative Psychiatric: reports: Reviewed and negative Endocrine: reports: Reviewed and negative Immunocompromised: reports: Reviewed and negative PD PAST MEDICAL HISTORY - Past Medical History Past Medical History: Yes Cardiovascular: High cholesterol, Hypertension Respiratory: None Neuro: None Endocrine/Autoimmune: Type 1 diabetes GI: GERD, Ulcers : Dialysis, Renal insuffiency HEENT: None Psych: Depression, Post traumatic stress disorder Musculoskeletal: None Derm: None - Past Surgical History Past Surgical History: No General: Appendectomy - Present Medications Home Medications: Ambulatory Orders Medication Instructions Recorded Confirmed Insulin Aspart [Novolog] .CONTINUOUS PUMP 08/12/19 Ferrous Sulfate 325 mg PO DAILY #30 tablet 08/15/19 08/22/20 Pantoprazole [Protonix] 40 mg PO QDAC #30 tablet 08/15/19 08/22/20 carvediloL [Coreg] 12.5 mg PO BID #60 tablet 08/15/19 08/22/20 Metoclopramide [Reglan] 10 mg PO Q6H PRN #14 tablet 08/16/19 08/22/20 amLODIPine [Norvasc] 10 mg PO QPM #30 tablet 09/22/19 08/22/20 Furosemide [Lasix] 40 mg PO DAILY 02/26/20 08/22/20 Ondansetron Odt [Zofran] 4 mg TL Q6H PRN #15 tablet 02/26/20 08/22/20 Amitriptyline [Elavil] 25 mg PO DAILY 07/26/20 08/22/20 - Allergies Allergies/Adverse Reactions: Allergies Allergy/AdvReac Type Severity Reaction Status Date / Time No Known Drug Allergies Allergy Verified 07/26/20 02:00 - Social History Does the pt smoke?: No Smoking Status: Never smoker Does the pt drink ETOH?: No Does the pt have substance abuse?: No - Immunizations Immunizations are current?: Yes - POLST Patient has POLST: No PD ED PE NORMAL - Vitals Vital signs reviewed: Yes - General General: Alert and oriented X 3, No acute distress, Well developed/nourished - HEENT HEENT: Atraumatic, PERRL, EOMI, Moist mucous membranes - Neck Neck: Supple, no meningeal sign - Cardiac Cardiac: RRR, No murmur, Strong equal pulses - Respiratory Respiratory: No respiratory distress, Other (Mild rales bilaterally) - Abdomen Abdomen: Soft, Non tender, Non distended - Derm Derm: Normal color, Warm and dry, No rash - Extremities Extremities: No deformity, No edema, No calf tenderness / cord - Neuro Neuro: Alert and oriented X 3, escalator attendant 2-12 intact, Normal speech, Other (Grossly intact) - Psych Psych: Normal mood, Normal affect Results - Vitals Vitals: Vital Signs - 24 hr 05/10/21 05/10/21 05/10/21 07:00 07:02 09:05 Temperature 38.9 C H Heart Rate 99 88 Respiratory 20 18 Rate Blood Pressure 174/77 H 126/73 O2 Saturation 97 87 L 97 05/10/21 05/10/21 05/10/21 11:00 13:00 15:00 Temperature 36.7 C 36.8 C 36 C L Heart Rate 82 82 75 Respiratory 16 18 16 Rate Blood Pressure 126/73 126/73 126/73 O2 Saturation 97 96 96 05/10/21 17:00 Temperature Heart Rate 80 Respiratory 18 Rate Blood Pressure 130/70 O2 Saturation 99 Oxygen O2 Source Nasal cannula Oxygen Flow Rate 4 - Labs Labs: Laboratory Tests 05/10/21 05/10/21 05/10/21 07:33 07:33 08:15 WBC 5.5 RBC 2.41 L Hgb 7.4 L Hct 21.7 L MCV 90.0 MCH 30.7 MCHC 34.1 RDW 13.5 Plt Count 307 MPV 9.8 Neut # (Auto) 3.8 Lymph # (Auto) 0.8 L [place] # (Auto) 0.7 Eos # (Auto) 0.1 Baso # (Auto) 0.0 Absolute Nucleated RBC 0.00 Nucleated RBC % 0.0 Sodium 132 L Potassium 4.1 Chloride 91 L Carbon Dioxide 26 Anion Gap 15.0 H BUN 46 H Creatinine 8.5 H* Estimated GFR (MDRD) 8 L Glucose 271 H Calcium 7.9 L Total Bilirubin 1.3 H AST 24 ALT 17 Alkaline Phosphatase 37 L Total Protein 6.6 L Albumin 2.9 L Globulin 3.7 Albumin/Globulin Ratio 0.8 L Lipase 19 L Nasal Adenovirus (PCR) NOT DETECTED Nasal B. parapertussis DNA (PCR) NOT DETECTED Nasal Coronavir 229E PCR NOT DETECTED Nasal Coronavir HKU1 PCR NOT DETECTED Nasal Coronavir NL63 PCR NOT DETECTED Nasal Coronavir OC43 PCR NOT DETECTED Nasal Enterovir/Rhinovir PCR NOT DETECTED Nasal Influenza B PCR NOT DETECTED Nasal Influenza A PCR NOT DETECTED Nasal Parainfluen 1 PCR NOT DETECTED Nasal Parainfluen 2 PCR NOT DETECTED Nasal Parainfluen 3 PCR NOT DETECTED Nasal Parainfluen 4 PCR NOT DETECTED Nasal RSV (PCR) NOT DETECTED Nasal B.pertussis DNA PCR NOT DETECTED Nasal C.pneumoniae (PCR) NOT DETECTED Jakub Human Metapneumo PCR NOT DETECTED Nasal M.pneumoniae (PCR) NOT DETECTED Nasal SARS-CoV-2 (PCR) DETECTED A - Rads (name of study) Chest x-ray Radiology: Final report received, EMP read indepedently, See rad report (Diffuse interstitial prominence, national sales representative of fluid overload versus atypical pneumonia.) PD MEDICAL DECISION MAKING - ED course Complexity details: reviewed old records, reviewed results, re-evaluated patient, considered differential, d/w patient ED course: The patient was evaluated in the emergency department and worked up with labs and chest x-ray. He was found to be positive for COVID. Chest x-ray showed diffuse infiltrates most consistent with an atypical pneumonia, given that patient was just dialyzed yesterday. White blood cell count was normal at 5.5. BUN was 46 and creatinine was 8.5 with a GFR of 8. Sodium was slightly decreased at 3132. Blood glucose was 271. Patient's hemoglobin was also low at 7.4. The patient was treated with IV antibiotics to cover bacterial superinfe ction on top of Covid related pneumonia. Fluid overloaded was also to be considered, although given the patient's fever and positive Covid test, I feel this is less likely, especially since patient just got dialysis yesterday. Given that the patient is a dialysis patient, he cannot be admitted here at our hospital. I did have our staff attempt to get a hold of [place], where patient's peg driver is, but they were not answering the phone or returning calls. He spoke with [facility], who stated they were full. Libia Ortiz has expressed a possible willingness to consider the patient, but at this point in time, we are still waiting to hear. The patient at this point will be signed out to the oncoming emergency physician, pending final disposition. He is stable at this time.
[2021-05-10] MEDS ORDERED: INSULIN GLARGINE 300 UNIT/3 ML PEN SUBQ SCH (21:00)
[2021-05-10] MEDS ORDERED: DIPHENOX/ATROPINE 2.5/0.025 MG TABLET PO STA (21:23)
[2021-05-10] MEDS ORDERED: ACETAMINOPHEN 325 MG TABLET PO PRN (22:00)
[2021-05-11 04:56] LABS: BASOPHILS % (AUTO) 0.2 %; EOSINOPHILS # (AUTO) 0.1 10^3/uL (0.0-0.7); EOSINOPHILS % (AUTO) 1.1 %; HCT - HEMATOCRIT 22.7 % (42.0-52.0); HGB - HEMOGLOBIN 7.4 g/dL (14.0-18.0); LYMPHOCYTES % (AUTO) 15.6 %; MEAN CORPUSCULAR HEMOGLOBIN 30.1 pg (27.0-31.0); MEAN CORPUSCULAR HGB CONC 32.6 g/dL (32.0-36.0); MEAN CORPUSCULAR VOLUME 92.3 fL (80.0-94.0); MEAN PLATELET VOLUME 9.6 fL (7.4-11.4); MONOCYTES # (AUTO) 0.6 10^3/uL (0.0-1.0); MONOCYTES % (AUTO) 9.1 %; NEUTROPHILS # (AUTO) 4.6 10^3/uL (1.5-6.6); NEUTROPHILS % (AUTO) 73.4 %; PLT - PLATELET COUNT 343 10^3/uL (130-450); RED BLOOD COUNT 2.46 10^6/uL (4.70-6.10); WHITE BLOOD COUNT 6.3 x10^3/uL (4.8-10.8)
[2021-05-11 05:10] LABS: ALBUMIN 2.7 g/dL (3.2-5.5); ALBUMIN/GLOBULIN RATIO 0.7 (1.0-2.2); BILIRUBIN,TOTAL 0.9 mg/dL (0.2-1.0); MAGNESIUM 1.9 mg/dL (1.7-2.8); POTASSIUM 4.6 mmol/L (3.5-5.0); TOTAL PROTEIN 6.5 g/dL (6.7-8.2)
[2021-05-11 05:11] LABS: CREATININE 10.8 mg/dL (0.6-1.2)
[2021-05-11] MEDS ORDERED: cefTRIAXone 2 GM in SODIUM CHLORIDE 0.9% MINIBAG 100 ML IV STA (07:07)
[2021-05-11] MEDS ORDERED: AZITHROMYCIN 250 MG TABLET PO STA (07:08)
[2021-05-11] MEDS: INSULIN ASPART 300 UNIT/3 ML PEN SUBQ SCH ×3 (08:01→17:35)
--- NOTE | 2021-05-11 08:18 | XRAY Report ---
PROCEDURE: Chest 1 View X-Ray INDICATIONS: COVID pneumonia TECHNIQUE: One view of the chest was acquired. COMPARISON: CXR 05/10/2021, 09/19/2019. FINDINGS: Surgical changes and devices: Right-sided dual-lumen central venous catheter with the catheter tip pr ojecting at the cavoatrial junction. Lungs and pleura: No pleural effusions or pneumothorax. Moderate bilateral patchy airspace opacity. This is slightly improved compared to yesterday. Mediastinum: Mediastinal contours appear unchanged. Heart size is enlarged. Bones and chest wall: No suspicious bony lesions. Overlying soft tissues appear unremarkable. IMPRESSION: Moderate bilateral patchy airspace opacity. Possible minimal improvement. Favor atypical multifocal p neumonia/Covid 19 pneumonia over pulmonary edema. Heart size is enlarged. Reviewed by: Kyle Christian MD on 05/11/2021 8:16 AM [facility] Approved by: Kyle Christian MD on 05/11/2021 8:16 AM [facility] Station ID: [id number]
[2021-05-11] MEDS ORDERED: DEXAMETHASONE 10 MG/ML VIAL IV STA (13:02)
[2021-05-11 16:04] VITALS: BP 193/85
[2021-05-11] MEDS ORDERED: carvediloL 12.5 MG TABLET PO STA (17:47)
== END 2021-05-11 18:04 | disposition short-term general hospital (02) ==
LOC: EDSEX → EDUNIT# → ED 06:53
DX: U07.1 COVID-19 (principal); J12.82 Pneumonia due to coronavirus disease 2019; R09.02 Hypoxemia; I12.0 Hypertensive chronic kidney disease with stage 5 chronic kidney disease or end stage renal disease; N18.6 End stage renal disease; E10.22 Type 1 diabetes mellitus with diabetic chronic kidney disease; Z99.2 Dependence on renal dialysis
CPT/HCPCS: 0202U; 36415; 71045; 80053; 83690; 83735; 85025; 87040; 96365; 96366; 96368; 96375; 99283; 99285; A9270; J1815

== ENCOUNTER 2022-01-07 22:37 | Outpatient (CLI) | payer OTHER | END 2022-01-07 22:38 | disposition short-term general hospital (02) | LOC: EMS 22:37 | DX: R29.810 Facial weakness (principal); R47.81 Slurred speech; R56.9 Unspecified convulsions; N18.6 End stage renal disease; Z99.2 Dependence on renal dialysis | CPT/HCPCS: A0425; A0427 ==

== ENCOUNTER 2022-02-17 23:34 | Outpatient (CLI) | payer OTHER | END 2022-02-17 23:35 | disposition left against medical advice (07) | LOC: EMS 23:34 | DX: E10.649 Type 1 diabetes mellitus with hypoglycemia without coma (principal) ==

== ENCOUNTER 2022-08-22 11:29 | Outpatient (CLI) | payer OTHER | END 2022-08-22 23:59 | disposition short-term general hospital (02) | LOC: EMS 11:29 | DX: R09.02 Hypoxemia (principal); R53.1 Weakness | CPT/HCPCS: A0425; A0429 ==

== ENCOUNTER 2022-11-02 12:29 | Outpatient (CLI) | payer OTHER ==
--- NOTE | 2022-11-03 16:17 | Mammography Report ---
MALE BILATERAL DIGITAL DIAGNOSTIC MAMMOGRAM 3D/2D: 11/02/2022 CLINICAL: Baseline exam. Palpable left breast lump. No prior exams were available for comparison. There is symmetric gynecomastia in both breasts. No significant masses, calcifications, or other findings are seen in either breast. IMPRESSION: BENIGN 1. Gynecomastia. 2. There is no mammographic evidence of malignancy. 3. Recommend follow-up with provider and return for any change. This exam was interpreted at Station ID: [id number]. NOTE: For mammograms, a report in lay terms will be sent to the patient. Approximately 15% of breast malignancies will not be visualized mammographically. In the management of a palpable breast mass, a negative mammogram must not discourage biopsy of a clinically suspicious lesion. Electronically Signed By: Ty Zaragoza M.D. acr/:11/02/2022 13:04:48 ACR BI-RADS Category 2: Benign Finding(s) 3342F PARENCHYMAL PATTERN: (D) - The breast(s) demonstrate(s) heterogeneously dense fibroglandular chloe lee. BI-RADS CATEGORY: (2) - 2 Unspecified - other recall n/a LATERALITY: (B)
== END 2022-11-02 12:30 | disposition home or self-care (01) ==
LOC: DI 12:29
PROVIDERS: ATTEND Internal Medicine
DX: N62 Hypertrophy of breast (principal)

== ENCOUNTER 2023-03-17 19:39 | Outpatient (CLI) | payer OTHER | END 2023-03-17 19:40 | disposition short-term general hospital (02) | LOC: EMS 19:39 | DX: U07.1 COVID-19 (principal); R06.02 Shortness of breath; R09.89 Other specified symptoms and signs involving the circulatory and respiratory systems; I12.0 Hypertensive chronic kidney disease with stage 5 chronic kidney disease or end stage renal disease; N18.6 End stage renal disease; Z99.2 Dependence on renal dialysis | CPT/HCPCS: A0425; A0427 ==

== ENCOUNTER 2023-10-06 04:07 | Outpatient (CLI) | payer OTHER | END 2023-10-06 04:08 | disposition short-term general hospital (02) | LOC: EMS 04:07 | DX: R06.02 Shortness of breath (principal); Z99.2 Dependence on renal dialysis | CPT/HCPCS: A0425; A0427 ==